=== PATIENT | male | born 1965 | race Caucasian/White ===

== ENCOUNTER → 2017-06-07 | Outpatient (CLI) | payer BC ==
--- NOTE | 2017-06-07 09:45 | US ---
EXAMINATION TYPE: US abdomen complete DATE OF EXAM: 06/07/2017 COMPARISON: CT 2010 CLINICAL HISTORY: R10.11 Rt Upper Quad Pain. Pain is noted with chest/abdomen rotation; gallbladder r emoved lap/cholecystectomy EXAM MEASUREMENTS: Liver Length: 17.0 cm Gallbladder Wall: surgically removed CBD: 0.2 cm Spleen: 9.9 cm Right Kidney: 9.9 x 5.7 x 4.4 cm Left Kidney: 10.8 x 5.4 x 5.5 cm Pancreas: hyperechoic; tail obscured by overlying bowel gas Liver: The liver is heterogenous and coarse in echotexture, slightly hyperechoic with poor visualiza tion of the portal triads. Gallbladder: surgically absent Evidence for sonographic Dalal's sign: No CBD: wnl Spleen: wnl Right Kidney: wnl Left Kidney: wnl Upper IVC: wnl Abd Aorta: wnl IMPRESSION: 1. Hepatic steatosis. 2. Surgical absence of the gallbladder.
== END | disposition home or self-care (01) ==
LOC: RADUSWWP 08:17
PROVIDERS: ATTEND Family Medicine
DX: K76.0 Fatty (change of) liver, not elsewhere classified (principal); Z90.49 Acquired absence of other specified parts of digestive tract
CPT/HCPCS: 76700

== ENCOUNTER → 2017-12-25 | Outpatient (CLI) | payer BC ==
--- NOTE | 2017-12-27 16:13 | ECHOS ---
STRESS ECHOCARDIOGRAM INDICATIONS: Chest pain. MEDICATIONS: Advair, Lunesta BASELINE HEART RATE: 78 BASELINE BLOOD PRESSURE: 131/92 MAXIMUM HEART RATE: 161 MAXIMUM BLOOD PRESSURE: 203/91 85% MPHR: 144 100% MPHR: 169 METS: 10.7 MAXIMUM STAGE REACHED: 4 TOTAL EXERCISE TIME: 9:15 CLINICAL INFORMATION: Patient was exercised for a total of period of 9 minutes and 15 seconds. Peak heart rate of 161 was achieved. Maximum blood pressure of 203/91 mmHg was noted. Resting EKG shows normal sinus rhythm with normal p.r.n. interval and QRS duration and normal ST-T waves. No ST-segment depression suggestive of ischemia was noted. Patient did not complain of any chest pain during the test. The baseline echocardiographic images reveals normal left ventricular chamber size with normal left ventricular systolic function. In the immediate post exercise, normal increase in the wall thickness and contractility is noted. FINAL IMPRESSION: 1. This is stress echocardiographic study is negative for stress-induced ischemia. 2. EKG portion of the stress test is not suggestive of ischemia. 3. Patient's exercise tolerance is normal. MMODL / IJN: [id number] /
== END | disposition home or self-care (01) ==
LOC: RADNMMAIN 10:08
PROVIDERS: ATTEND Family Medicine
DX: R07.9 Chest pain, unspecified (principal)
CPT/HCPCS: 93017; 93350

== ENCOUNTER → 2020-09-29 | Outpatient (CLI) | payer BC ==
--- NOTE | 2020-09-30 11:40 | ECHOS ---
STRESS ECHOCARDIOGRAM INDICATIONS: Palpitations, chest pain. MEDICATIONS: Wixela, Ventolin, lisinopril, metoprolol, Xanax. BASELINE HEART RATE: 69 BASELINE BLOOD PRESSURE: 137/83 MAXIMUM HEART RATE: 173 MAXIMUM BLOOD PRESSURE: 205/110 85% MPHR: 142 100% MPHR: 167 METS: 11.5 MAXIMUM STAGE REACHED: IV TOTAL EXERCISE TIME: 10:00 CLINICAL INFORMATION: STRESS DATA: Heart rate 69, pressure is 137/83 mmHg. Baseline EKG showed sinus mechanism. The patient exercised on the treadmill according to Tuan protocol for a total of 10 minutes and achieved 11.5 METS. The max heart rate was 173, which is about 105 of maximum predicted heart rate. Maximum blood pressure was 205/110 mmHg. Clinically, the patient did not have any symptoms and the EKG did not show any significant ST or T-wave abnormalities concerning for ischemia. On echocardiogram images, on echocardiogram images from parasternal long axis view, parasternal short axis, apical 4 chamber and apical 2 chamber were obtained as the baseline images, at the peak of the heart rate as well as on recovery and the echocardiogram images showed good augmentation in the left ventricular systolic function without any evidence of wall motion abnormalities concerning for ischemia. CONCLUSION: 1. Excellent exercise tolerance. 2. Normal EKG in response to exercise. 3. Normal echocardiogram in response to exercise. MMODL / IJN: [id number] /
== END | disposition home or self-care (01) ==
LOC: RADNMMAIN 08:53
PROVIDERS: ATTEND Internal Medicine
DX: I25.119 Atherosclerotic heart disease of native coronary artery with unspecified angina pectoris (principal)
CPT/HCPCS: 93351

== ENCOUNTER 2020-10-18 21:46 | Emergency (ER) | payer BC ==
[2020-10-18] MEDS ORDERED: SODIUM CHLORIDE 0.9% 1,000 ML IV STA ×2 (22:43)
[2020-10-18] MEDS ORDERED: SODIUM CHLORIDE 0.9% 500 ML 500 ML IV STA (22:43)
--- NOTE | 2020-10-18 22:53 | ED ---
SOB HPI - General Chief Complaint: Shortness of Breath Stated Complaint: SOB Time Seen by Provider: 10/18/20 22:35 Source: patient, RN notes reviewed, old records reviewed Mode of arrival: wheelchair Limitations: no limitations - History of Present Illness Initial Comments: This is a 54-year-old male he presents today for evaluation. Patient Dese for e valuation regards to complaints of shortness of breath. Patient is significantly apparently intoxicated on arrival to ER does present by EMS. Patient has no significant medical history per himself but patient again is a poor story secondary to his intoxication MD Complaint: shortness of breath -: unknown Severity: mild Severity scale (1-10): 3 Consistency: constant Improves With: nothing Worsens With: nothing Context: other (Patient is intoxicated) Associated Symptoms: denies other symptoms Treatments Prior to Arrival: none - Related Data Allergies Allergy/AdvReac Type Severity Reaction Status Date / Time No Known Allergies Allergy Verified 10/18/20 21:55 Review of Systems ROS Statement: Those systems with pertinent positive or pertinent negative responses have been documented in the HPI. ROS Other: All systems not noted in ROS Statement are negative. Past Medical History Past Medical History: No Reported History History of Any Multi-Drug Resistant Organisms: None Reported Past Surgical History: Appendectomy Past Psychological History: No Psychological Hx Reported Smoking Status: Never smoker Past Alcohol Use History: Daily, Heavy Past Drug Use History: Marijuana General Exam Limitations: no limitations General appearance: alert, in no apparent distress, anxious, lethargic Head exam: Present: atraumatic, normocephalic, normal inspection Eye exam: Present: normal appearance, PERRL, EOMI. Absent: scleral icterus, conjunctival injection, periorbital swelling ENT exam: Present: normal exam, mucous membranes moist Neck exam: Present: normal inspection. Absent: tenderness, meningismus, lymphadenopathy Respiratory exam: Present: normal lung sounds bilaterally. Absent: respiratory distress, wheezes, rales, rhonchi, stridor Cardiovascular Exam: Present: regular rate, normal rhythm, normal heart sounds. Absent: systolic murmur, diastolic murmur, rubs, gallop, clicks GI/Abdominal exam: Present: soft, normal bowel sounds. Absent: distended, tenderness, guarding, rebound, rigid Extremities exam: Present: normal inspection, full ROM, normal capillary refill. Absent: tenderness, pedal edema, joint swelling, calf tenderness Back exam: Present: normal inspection Neurological exam: Present: alert, oriented X3, CN II-XII intact Psychiatric exam: Present: normal affect, normal mood Skin exam: Present: warm, dry, intact, normal color. Absent: rash Course Vital Signs 10/18/20 10/18/20 10/18/20 21:49 22:55 23:45 Temperature 98.3 F 98.0 F 97.8 F Pulse Rate 133 H 120 H 115 H Respiratory 21 18 18 Rate Blood Pressure 135/91 132/84 128/75 O2 Sat by Pulse 98 99 99 Oximetry - Reevaluation(s) Reevaluation #1: 10/19/20 00:55 medical record is reviewed Reevaluation #2: 10/19/20 00:55 She is significantly intoxicated but did come pick pick patient up Reevaluation #3: 10/19/20 00:55 Patient was ambulatory in the emergency Medical Decision Making - Medical Decision Making 51 female DF for evaluation patient was complaining of shortness of breath was significantly intoxicated with polysubstance abuse. Patient's did come to pick this patient up - Lab Data Result diagrams: 10/18/20 22:58 10/18/20 22:58 Lab Results 10/18/20 10/18/20 10/18/20 Range/Units 22:58 22:58 22:58 WBC 3.0 L (3.8-10.6) k/uL RBC 5.12 (4.30-5.90) m/uL Hgb 17.2 (13.0-17.5) gm/dL Hct 48.8 (39.0-53.0) % MCV 95.4 D (80.0-100.0) fL MCH 33.7 (25.0-35.0) pg MCHC 35.3 (31.0-37.0) g/dL RDW 12.6 (11.5-15.5) % Plt Count 208 (150-450) k/uL MPV 7.2 Neutrophils % 77 % Lymphocytes % 17 % Monocytes % 4 % Eosinophils % 0 % Basophils % 1 % Neutrophils # 2.3 (1.3-7.7) k/uL Lymphocytes # 0.5 L (1.0-4.8) k/uL Monocytes # 0.1 (0-1.0) k/uL Eosinophils # 0.0 (0-0.7) k/uL Basophils # 0.0 (0-0.2) k/uL PT 10.3 (9.0-12.0) sec INR 1.0 (<1.2) APTT 23.2 (22.0-30.0) sec Sodium (137-145) mmol/L Potassium (3.5-5.1) mmol/L Chloride (98-107) mmol/L Carbon Dioxide (22-30) mmol/L Anion Gap mmol/L BUN (9-20) mg/dL Creatinine (0.66-1.25) mg/dL Est GFR (CKD-EPI)AfAm (>60 ml/min/1.73 sqM) Est GFR (CKD-EPI)NonAf (>60 ml/min/1.73 sqM) Glucose (74-99) mg/dL Plasma Lactic Acid Sinan (0.7-2.0) mmol/L Calcium (8.4-10.2) mg/dL Magnesium (1.6-2.3) mg/dL Total Bilirubin (0.2-1.3) mg/dL AST (17-59) U/L ALT (4-49) U/L Alkaline Phosphatase (38-126) U/L Lactate Dehydrogenase (313-618) U/L Troponin I (0.000-0.034) ng/mL C-Reactive Protein (<10.0) mg/L NT-Pro-B Natriuret Pep pg/mL Total Protein (6.3-8.2) g/dL Albumin (3.5-5.0) g/dL Lipase (23-300) U/L Urine Color Urine Appearance (Clear) Urine pH (5.0-8.0) Ur Specific [place] (1.001-1.035) Urine Protein (Negative) Urine Glucose (UA) (Negative) Urine Ketones (Negative) Urine Blood (Negative) Urine Nitrite (Negative) Urine Bilirubin (Negative) Urine Urobilinogen (<2.0) mg/dL Ur Leukocyte Esterase (Negative) Salicylates mg/dL Urine Opiates Screen Not Detected (NotDetected) Ur Oxycodone Screen Not Detected (NotDetected) Urine Methadone Screen Not Detected (NotDetected) Ur Propoxyphene Screen Not Detected (NotDetected) Acetaminophen ug/mL Ur Barbiturates Screen Not Detected (NotDetected) U Tricyclic Antidepress Not Detected (NotDetected) Ur Phencyclidine Scrn Not Detected (NotDetected) Ur Amphetamines Screen Detected H (NotDetected) U Methamphetamines Scrn Detected H (NotDetected) U Benzodiazepines Scrn Detected H (NotDetected) Urine Cocaine Screen Not Detected (NotDetected) U Marijuana (THC) Screen Detected H (NotDetected) Serum Alcohol mg/dL 10/18/20 10/18/20 10/18/20 Range/Units 22:58 22:58 22:58 WBC (3.8-10.6) k/uL RBC (4.30-5.90) m/uL Hgb (13.0-17.5) gm/dL Hct (39.0-53.0) % MCV (80.0-100.0) fL MCH (25.0-35.0) pg MCHC (31.0-37.0) g/dL RDW (11.5-15.5) % Plt Count (150-450) k/uL MPV Neutrophils % % Lymphocytes % % Monocytes % % Eosinophils % % Basophils % % Neutrophils # (1.3-7.7) k/uL Lymphocytes # (1.0-4.8) k/uL Monocytes # (0-1.0) k/uL Eosinophils # (0-0.7) k/uL Basophils # (0-0.2) k/uL PT (9.0-12.0) sec INR (<1.2) APTT (22.0-30.0) sec Sodium 140 (137-145) mmol/L Potassium 4.2 (3.5-5.1) mmol/L Chloride 104 (98-107) mmol/L Carbon Dioxide 14 L (22-30) mmol/L Anion Gap 22 mmol/L BUN 9 (9-20) mg/dL Creatinine 0.93 (0.66-1.25) mg/dL Est GFR (CKD-EPI)AfAm >90 (>60 ml/min/1.73 sqM) Est GFR (CKD-EPI)NonAf >90 (>60 ml/min/1.73 sqM) Glucose 183 H (74-99) mg/dL Plasma Lactic Acid Sinan 9.5 H* (0.7-2.0) mmol/L Calcium 9.1 (8.4-10.2) mg/dL Magnesium 1.9 (1.6-2.3) mg/dL Total Bilirubin 0.8 (0.2-1.3) mg/dL AST 153 H (17-59) U/L ALT 111 H (4-49) U/L Alkaline Phosphatase 86 (38-126) U/L Lactate Dehydrogenase 772 H (313-618) U/L Troponin I <0.012 (0.000-0.034) ng/mL C-Reactive Protein 5.5 (<10.0) mg/L NT-Pro-B Natriuret Pep pg/mL Total Protein 8.1 (6.3-8.2) g/dL Albumin 4.7 (3.5-5.0) g/dL Lipase 52 (23-300) U/L Urine Color Urine Appearance (Clear) Urine pH (5.0-8.0) Ur Specific [place] (1.001-1.035) Urine Protein (Negative) Urine Glucose (UA) (Negative) Urine Ketones (Negative) Urine Blood (Negative) Urine Nitrite (Negative) Urine Bilirubin (Negative) Urine Urobilinogen (<2.0) mg/dL Ur Leukocyte Esterase (Negative) Salicylates <1.0 mg/dL Urine Opiates Screen (NotDetected) Ur Oxycodone Screen (NotDetected) Urine Methadone Screen (NotDetected) Ur Propoxyphene Screen (NotDetected) Acetaminophen <10.0 ug/mL Ur Barbiturates Screen (NotDetected) U Tricyclic Antidepress (NotDetected) Ur Phencyclidine Scrn (NotDetected) Ur Amphetamines Screen (NotDetected) U Methamphetamines Scrn (NotDetected) U Benzodiazepines Scrn (NotDetected) Urine Cocaine Screen (NotDetected) U Marijuana (THC) Screen (NotDetected) Serum Alcohol 372 H* mg/dL 10/18/20 10/18/20 Range/Units 22:58 22:58 WBC (3.8-10.6) k/uL RBC (4.30-5.90) m/uL Hgb (13.0-17.5) gm/dL Hct (39.0-53.0) % MCV (80.0-100.0) fL MCH (25.0-35.0) pg MCHC (31.0-37.0) g/dL RDW (11.5-15.5) % Plt Count (150-450) k/uL MPV Neutrophils % % Lymphocytes % % Monocytes % % Eosinophils % % Basophils % % Neutrophils # (1.3-7.7) k/uL Lymphocytes # (1.0-4.8) k/uL Monocytes # (0-1.0) k/uL Eosinophils # (0-0.7) k/uL Basophils # (0-0.2) k/uL PT (9.0-12.0) sec INR (<1.2) APTT (22.0-30.0) sec Sodium (137-145) mmol/L Potassium (3.5-5.1) mmol/L Chloride (98-107) mmol/L Carbon Dioxide (22-30) mmol/L Anion Gap mmol/L BUN (9-20) mg/dL Creatinine (0.66-1.25) mg/dL Est GFR (CKD-EPI)AfAm (>60 ml/min/1.73 sqM) Est GFR (CKD-EPI)NonAf (>60 ml/min/1.73 sqM) Glucose (74-99) mg/dL Plasma Lactic Acid Sinan (0.7-2.0) mmol/L Calcium (8.4-10.2) mg/dL Magnesium (1.6-2.3) mg/dL Total Bilirubin (0.2-1.3) mg/dL AST (17-59) U/L ALT (4-49) U/L Alkaline Phosphatase (38-126) U/L Lactate Dehydrogenase (313-618) U/L Troponin I (0.000-0.034) ng/mL C-Reactive Protein (<10.0) mg/L NT-Pro-B Natriuret Pep 78 pg/mL Total Protein (6.3-8.2) g/dL Albumin (3.5-5.0) g/dL Lipase (23-300) U/L Urine Color Colorless Urine Appearance Clear (Clear) Urine pH 5.0 (5.0-8.0) Ur Specific [place] 1.007 (1.001-1.035) Urine Protein Negative (Negative) Urine Glucose (UA) Negative (Negative) Urine Ketones 1+ H (Negative) Urine Blood Negative (Negative) Urine Nitrite Negative (Negative) Urine Bilirubin Negative (Negative) Urine Urobilinogen <2.0 (<2.0) mg/dL Ur Leukocyte Esterase Negative (Negative) Salicylates mg/dL Urine Opiates Screen (NotDetected) Ur Oxycodone Screen (NotDetected) Urine Methadone Screen (NotDetected) Ur Propoxyphene Screen (NotDetected) Acetaminophen ug/mL Ur Barbiturates Screen (NotDetected) U Tricyclic Antidepress (NotDetected) Ur Phencyclidine Scrn (NotDetected) Ur Amphetamines Screen (NotDetected) U Methamphetamines Scrn (NotDetected) U Benzodiazepines Scrn (NotDetected) Urine Cocaine Screen (NotDetected) U Marijuana (THC) Screen (NotDetected) Serum Alcohol mg/dL - EKG Data -: EKG Interpreted by Me (EKG is sinus tach 126 LA 170 QRS 76 QTC 431) - Radiology Data Radiology results: report reviewed (Chest x-rays negative for acute disease), image reviewed Disposition Clinical Impression: Alcohol intoxication Disposition: HOME SELF-CARE Condition: Undetermined Instructions (If sedation given, give patient instructions): Alcohol Intoxication (ED) Is patient prescribed a controlled substance at d/c from ED?: No Referrals: Yanique Artis MD [Primary Care Provider] - 1-2 days
[2020-10-18] MEDS ORDERED: LORazepam 2 MG/ML INJ IV STA (23:06)
[2020-10-18 23:11] LABS: Basophils % (A) 1 %; Eosinophils % (A) 0 %; HCT 48.8 % (39.0-53.0); HGB 17.2 gm/dL (13.0-17.5); Lymphocytes # (A) 0.5 k/uL (1.0-4.8); Lymphocytes % (A) 17 %; MCH 33.7 pg (25.0-35.0); MCHC 35.3 g/dL (31.0-37.0); Mean Platelet Volume 7.2; Monocytes # (A) 0.1 k/uL (0-1.0); Monocytes % (A) 4 %; Neutrophils # (A) 2.3 k/uL (1.3-7.7); Neutrophils % (A) 77 %; Platelet Count 208 k/uL (150-450); RBC 5.12 m/uL (4.30-5.90); RDW 12.6 % (11.5-15.5)
[2020-10-18 23:12] LABS: MCV 95.4 fL (80.0-100.0)
--- NOTE | 2020-10-18 23:13 | XR ---
EXAMINATION TYPE: XR chest 2V DATE OF EXAM: 10/18/2020 COMPARISON: 09/03/2020 HISTORY: Difficulty breathing TECHNIQUE: 3 views FINDINGS: Heart and mediastinum are normal. Lungs are clear. Diaphragm is normal. There are chest natty ds. Bony thorax is intact. IMPRESSION: Normal chest. There is clearing of the lingula mild atelectasis compared to old exam.
[2020-10-18 23:19] LABS: Partial Thromboplastin Time 23.2 sec (22.0-30.0); Prothrombin Time 10.3 sec (9.0-12.0)
[2020-10-18 23:22] LABS: AST 153 U/L (17-59); Acetaminophen <10.0 ug/mL; African American GFR (CKD) >90 (>60 ml/min/1.73 sqM); Albumin 4.7 g/dL (3.5-5.0); Alkaline Phosphatase 86 U/L (38-126); Anion Gap 22 mmol/L; Blood Urea Nitrogen 9 mg/dL (9-20); C Reactive Protein 5.5 mg/L (<10.0); Calcium 9.1 mg/dL (8.4-10.2); Carbon Dioxide 14 mmol/L (22-30); Chloride 104 mmol/L (98-107); Glucose 183 mg/dL (74-99); LDH 772 U/L (313-618); Lipase 52 U/L (23-300); Magnesium 1.9 mg/dL (1.6-2.3); Non-African American GFR(CKD) >90 (>60 ml/min/1.73 sqM); Potassium 4.2 mmol/L (3.5-5.1); Salicylate <1.0 mg/dL; Sodium 140 mmol/L (137-145); Total Bilirubin 0.8 mg/dL (0.2-1.3); Total Protein 8.1 g/dL (6.3-8.2)
[2020-10-18 23:27] LABS: ALT 111 U/L (4-49)
[2020-10-18 23:31] LABS: Alcohol 372 mg/dL
[2020-10-18 23:49] VITALS: RESP 18
[2020-10-18 23:50] VITALS: BP 128/75; PULSE 115; TEMP 97.8
[2020-10-18 23:59] LABS: Amphetamine Screen,Urine Detected (NotDetected); Barbiturate Screen,Urine Not Detected (NotDetected); Benzodiazepines Screen,Urine Detected (NotDetected); Cocaine Screen,Urine Not Detected (NotDetected); Methadone Screen, Urine Not Detected (NotDetected); Opiate Screen,Urine Not Detected (NotDetected); Oxycodone Screen, Urine Not Detected (NotDetected); Phencyclidine Screen,Urine Not Detected (NotDetected); Tricyclic Antidepressant,Urine Not Detected (NotDetected); Urn Cannabinoid Scrn Detected (NotDetected)
[2020-10-19 00:07] LABS: Appearance,Urine Clear (Clear); Bilirubin,Urine Negative (Negative); Blood,Urine Negative (Negative); Color,Urine Colorless; Glucose,Urine (UA) Negative (Negative); Ketones,Urine 1+ (Negative); Leukocyte Esterase,Urine Negative (Negative); Nitrite,Urine Negative (Negative); Protein,Urine Negative (Negative); Specific Gravity,Urine 1.007 (1.001-1.035); Urobilinogen,Urine <2.0 mg/dL (<2.0)
[2020-10-19] MEDS ORDERED: IPRATROPIUM-ALBUTEROL 3 ML NEB INHALATION STA (00:42)
== END 2020-10-19 01:08 | disposition home or self-care (01) ==
LOC: EC 21:46
DX: F10.129 Alcohol abuse with intoxication, unspecified (principal); Y90.8 Blood alcohol level of 240 mg/100 ml or more; Z90.49 Acquired absence of other specified parts of digestive tract
CPT/HCPCS: 36415; 93005; 83880; 80053; 83605; 83615; 83690; 83735; 84484; 85025; 85610; 85730; 86140; 81003; 80306; 83520; 80329; 80320; 71046; 99285; 96374; 96361 ×2; J2060

== ENCOUNTER → 2020-12-05 | Outpatient (CLI) | payer BC ==
--- NOTE | 2020-12-08 14:10 | PE ---
Nuclear medicine PET/CT HISTORY: Solitary pulmonary nodule, initial, R91.8 Patient received 12.2 mCi F-18 FDG intravenously and delayed scanning was performed from the skull ba se to the mid thighs. A localization and attenuation correction CT scan was performed., Correlation C T 10/19/2020 Chest and neck: There is no supraclavicular or cervical adenopathy. No suspicious uptake. Anterior mediastinum shows a soft tissue mass as noted on CT without uptake. No pleural or pericardial effusion. No evident lung mass. ABDOMEN: There is no adrenal mass. Liver shows low attenuation likely due to hepatic steatosis. Patie nt is post cholecystectomy. No retroperitoneal adenopathy. There is circumaortic left renal vein pres ent. There is no suspicious uptake. Uptake within the bowel is likely physiologic. No pelvic adenopat hy. Osseous structures show no suspicious uptake IMPRESSION: Anterior mediastinal mass is indeterminate, there is no significant uptake identified at this level however.
== END | disposition home or self-care (01) ==
LOC: RADPETMAIN 08:49
PROVIDERS: ATTEND Internal Medicine Critical Care Medicine
DX: R91.8 Other nonspecific abnormal finding of lung field (principal)
CPT/HCPCS: 78815; A9552

== ENCOUNTER → 2020-12-28 | Outpatient (CLI) | payer BC ==
[2020-12-28 11:35] LABS: Partial Thromboplastin Time 23.2 sec (22.0-30.0); Prothrombin Time 10.7 sec (9.0-12.0)
[2020-12-28 11:36] LABS: Basophils # (A) 0.1 k/uL (0-0.2); Basophils % (A) 1 %; Eosinophils # (A) 0.4 k/uL (0-0.7); Eosinophils % (A) 7 %; HCT 46.6 % (39.0-53.0); HGB 15.8 gm/dL (13.0-17.5); Lymphocytes % (A) 18 %; MCH 34.1 pg (25.0-35.0); MCHC 33.9 g/dL (31.0-37.0); MCV 100.8 fL (80.0-100.0); Mean Platelet Volume 7.1; Monocytes # (A) 0.5 k/uL (0-1.0); Monocytes % (A) 10 %; Neutrophils # (A) 3.4 k/uL (1.3-7.7); Neutrophils % (A) 62 %; Platelet Count 187 k/uL (150-450); RBC 4.62 m/uL (4.30-5.90); RDW 12.9 % (11.5-15.5); WBC 5.4 k/uL (3.8-10.6)
[2020-12-28 11:38] LABS: African American GFR (CKD) >90 (>60 ml/min/1.73 sqM); Anion Gap 6 mmol/L; Blood Urea Nitrogen 15 mg/dL (9-20); Carbon Dioxide 29 mmol/L (22-30); Chloride 101 mmol/L (98-107); Glucose 106 mg/dL (74-99); Non-African American GFR(CKD) >90 (>60 ml/min/1.73 sqM); Sodium 136 mmol/L (137-145)
== END | disposition home or self-care (01) ==
LOC: LABPAT 10:18
PROVIDERS: ATTEND Thoracic Surgery (Cardiothoracic Vascular Surgery)
DX: Z01.818 Encounter for other preprocedural examination (principal); U07.1 COVID-19; R22.2 Localized swelling, mass and lump, trunk; E87.8 Other disorders of electrolyte and fluid balance, not elsewhere classified; R58 Hemorrhage, not elsewhere classified
CPT/HCPCS: 80051; 82565; 82947; 84520; 85025; 85610; 85730; 36415; U0003; C9803

== ENCOUNTER 2020-12-31 05:59 | Inpatient (IN) | payer BC ==
[2020-12-31] MEDS ORDERED: ONDANSETRON 4 MG/2 ML VIAL IVP ONE (06:08)
[2020-12-31] MEDS ORDERED: SCOPOLAMINE 1.5MG/72HR PATCH TRANSDERM ONE (06:08)
[2020-12-31] MEDS ORDERED: DEXAMETHASONE SOD PHOSPHATE 4 MG/ML 1 ML VIAL IV ONE (06:08)
[2020-12-31] MEDS: LIDOCAINE 1% (10MG/ML) FOR IV START INTRADERMA PRN ×2 (06:30→06:35)
[2020-12-31] MEDS: LACTATED RINGERS 1,000 ML IV SCH ×2 (06:30→07:13)
[2020-12-31] MEDS ORDERED: GLYCOPYRROLATE 0.2 MG/ML 2 ML VIAL ONE (07:29)
[2020-12-31] MEDS ORDERED: ROPIVACAINE 5 MG/ML 30 ML VIAL ONE (07:29)
[2020-12-31] MEDS ORDERED: LIDOCAINE 1% INJ 10MG/ML (20 ML MDV) ONE (07:29)
[2020-12-31] MEDS ORDERED: ALBUTEROL HFA INHALER INHALATION ONE (07:29)
[2020-12-31] MEDS ORDERED: SUCCINYLCHOLINE CHLORIDE 100 MG/5 ML SYR IV ONE (07:29)
[2020-12-31] MEDS ORDERED: MIDAZOLAM 2 MG/2 ML VIAL ONE (07:29)
[2020-12-31] MEDS ORDERED: NEOSTIGMINE 1 MG/ML 10 ML VIAL ONE (07:29)
[2020-12-31] MEDS ORDERED: fentaNYL (PF) 50 MCG/ML 2 ML AMP ONE (07:29)
[2020-12-31] MEDS ORDERED: ePHEDrine SULFATE/0.9% NACL/PF 50 MG/5 ML SYRINGE IV ONE (07:29)
[2020-12-31] MEDS ORDERED: PROPOFOL 10 MG/ML 20 ML VIAL IV ONE (07:29)
[2020-12-31] MEDS ORDERED: DEXAMETHASONE SOD PHOSPHATE 10 MG/ML 1 ML VIAL ONE (07:29)
[2020-12-31] MEDS ORDERED: PHENYLEPHRINE-0.9% NACL SYG 1,000 MCG/10 ML SYRINGE ONE (07:29)
[2020-12-31] MEDS ORDERED: ROCURONIUM 10 MG/ML (5 ML VIAL) IV ONE (07:29)
[2020-12-31] MEDS ORDERED: MIDAZOLAM 2 MG/2 ML VIAL IVP ONE (07:32)
[2020-12-31] MEDS: fentaNYL (PF) 50 MCG/ML 2 ML AMP IVP ONE ×6 (07:33→12:00)
[2020-12-31] MEDS ORDERED: BUPIVACAINE (PF) 0.25% 30 ML VIAL SQ ONE ×2 (08:28→10:48)
[2020-12-31] MEDS ORDERED: LACTATED RINGERS 1,000 ML IV ONE ×2 (08:59)
[2020-12-31] MEDS ORDERED: guaiFENesin 600 MG TABLET.ER PO PRN (11:06)
[2020-12-31] MEDS: HYDROmorphone 0.5 MG/0.5 ML SYRINGE IVP PRN ×2 (11:10→11:15)
[2020-12-31] MEDS ORDERED: diphenhydrAMINE 50 MG/ML 1 ML VIAL IVP ONE (11:35)
--- NOTE | 2020-12-31 11:47 | P.OP ---
Date of Procedure: 12/31/20 Preoperative Diagnosis: Thymic mass Postoperative Diagnosis: Same Procedure(s) Performed: Robotic-assisted right thoracoscopic total thymectomy Implants: None Anesthesia: CHARLIEA Surgeon: Ehsan Stevens Estimated Blood Loss (ml): 10 IV fluids (ml): 1,000 Urine output (ml): 200 Pathology: other (Thymus oriented on a piece of paper and sent fresh to pathology. Tumor was marked with a suture. Discussion was held with the patella pathologist regarding the handling of the specimen.) Condition: stable Disposition: PACU Indications for Procedure: 55-year-old male who developed Covent and presented to the emergency department [facility]. He had a CAT scan which demonstrated a thymic mass. She recovered from Covent he was referred for further evaluation. He was seen by oncology and a PET scan was ordered. This was negative. He was subsequently referred to [place]. Thymectomy was recommended for suspicion of primary thymoma. Operative Findings: There was extensive thymic fat pad present in the anterior Carlita mediastinum. This was completely excised. There was a 2 cm nodule noted within the thymic tissue on removal of the specimen. It appeared to be completely contained within the thymus. Was no evidence of invasion of the tumor grossly and no evidence of metastasis. Pleural spaces were clear of any pleural implants. Description of Procedure: The patient was brought to the operating room, placed supine on the operating room table, anesthetized and intubated with a double-lumen endotracheal tube. The tube was positioned with fiberoptic bronchoscopy and secured. Patient was appropriately positioned for robotic thymectomy. The right chest and midline sternum to the left nipple were sterilely prepped and draped. Initial incision was made in the fifth interspace in the anterior axillary line and an 8 mm port was placed here. Thoracoscope was placed. The right lung had been deflated. Presence within the pleural space was confirmed present. CO2 insufflation was begun. 2 more 8 mm ports were placed superior and anterior to the initial port in the third and second interspace and a fourth 8 mm port was placed in the seventh interspace somewhat more posteriorly. Working port was placed in the ninth interspace anteriorly. The robot was docked. We began by dissecting the fat pad away from the right phrenic nerve paralleling the nerve about half a centimeter anterior to it for the length of the phrenic nerve in the right chest. We then continued our dissection superiorly dissecting the fat pad from away from the right innominate vein and the right mammary vein. Dissection was carried then inferiorly parallel to the mammary artery and vein and then the thymic fat pad was excised from beneath the sternum back to the left mammary artery and vein. The insertion of the left mammary vein on the left innominate vein was identified and the superior portion of the left innominate vein was cleared. The superior poles of the thymic gland had been pulled down in this process. We now directed our attention inferiorly to the diaphragm. The inferior poles of the thymus were dissected from the diaphragm on the right side and then on the left side in the process we entered the left pleural space and opened widely the left inferior pole was dissected out all the way up to within a couple of centimeters of the superior portion of the previous dissection and care was taken to not injure the left phrenic nerve. At this point we began to carefully dissected the thymic fat pad from the inferior portion of the left innominate vein. There were several large draining branches and these were ligated and divided with the vessel sealer. Once we had completely freed the thymic tissue from the innominate vein the final couple of centimeters in the left pleural space was completed and the specimen was brought down into the right pleural space. The specimen was then placed in a large Endo Catch bag. At this point the robot was undocked and the working port incision was enlarged to allow the specimen to come through the chest wall in the Endo Catch bag. Was opened on the back table and the specimen electrical prospector and oriented on a piece of paper and marked and then folded up and placed in a container and sent to pathology fresh for analysis. The tumor was identified within the thymic specimen was marked with a suture. It was about 2 cm in diameter and appeared to be completely free of any invasion outside the thymus. After assuring a good sponge count a 28-Danish chest tube was placed through the most dense inferior and posterior of the robotic ports and positioned posterior apically in the right pleural space. It was secured with 2-0 Ethibond. Both lungs were reinflated and the atelectasis cleared under direct thoracoscopic visualization and then the thoracoscope was removed and the incisions closed with layers of Vicryl suture. Rib blocks were performed at the level of the incisions with clifton lf percent Marcaine. Appropriate dry sterile dressings were applied. Patient was extubated and transferred to recovery in stable condition.
--- NOTE | 2020-12-31 11:58 | XR ---
EXAMINATION TYPE: XR chest 1V portable DATE OF EXAM: 12/31/2020 CLINICAL HISTORY: Post thymectomy progress study. TECHNIQUE: Single AP portable upright view of the chest is obtained. COMPARISON: Chest x-ray from October 18, 2020. Outside chest CT October 19, 2020. Prior PET/CT [facility] [email or web address]. FINDINGS: New Right-sided chest tube. Persistent low lung volumes with bibasilar atelectatic changes .Tiny left apical pneumothorax felt present. No right-sided pneumothorax identified. No new mediastin al shift. Stable cardiomegaly. Stable prominent aortic knob corresponding to increased mediastinal fa t. Horizontal lucency suspect subcutaneous air right mid to lower abdomen. Visualized osseous structures are intact. Suspect artifact from overlying mask right upper thorax. IMPRESSION: Low lung volumes with bibasilar atelectatic changes. Right-sided chest tube with adjacent subcutaneous air. Tiny left apical pneumothorax. No mediastinal shift. No obvious right-sided pneumo thorax.
[2020-12-31] MEDS: MEPERIDINE 50 MG/ML SYRINGE IVP ONE ×2 (12:10→12:27)
[2020-12-31] MEDS ORDERED: DEXTROSE 5%-0.45% NACL 1,000 ML IV SCH (15:03)
[2020-12-31] MEDS ORDERED: ACETAMINOPHEN TAB 325 MG TAB PO PRN (15:03)
[2020-12-31] MEDS ORDERED: ONDANSETRON 4 MG/2 ML VIAL IVP PRN (15:03)
[2020-12-31] MEDS ORDERED: IPRATROPIUM-ALBUTEROL 3 ML NEB IH PRN (15:03)
--- NOTE | 2020-12-31 15:46 | P.CNPUL ---
History of Present Illness Consult date: 12/31/20 Requesting physician: Ehsan Stevens Reason for consult: abnormal CXR/CT Chief complaint: Abnormal chest x-ray/computed tomography scan. History of present illness: This is a 55-year-old male that was referred to Dr. Stevens, for evaluation of the mediastinal mass. The patient's mass was discovered at [facility] back in early September. He apparently was short of breath while deer hunting with some buddies. He was then diagnosed with COVID 19, at which time, he had chest x-rays and CAT scans. The CAT scan revealed an mediastinal mass, which was in the anterior mediastinum, measuring 2 x 2.5 cm. A PET scan was ordered by myself, and it was negative. I thought the mass was most consistent with thymoma. Today, the patient had a robotically-assisted right thoracoscopic total thymectomy under general anesthesia. Dr. Stevens stated that it was one of the largest thymus gland that he never seen. It is likely benign, given the PET scan results, and statistically, most of these are benign. The patient's resting comfortably in the room. He is on a couple of liters of O2. Hopefully, his tubes will come out tomorrow. He is helping to take a trip down the [place] in early January. Other than pain when he takes a deep breath, he is not really having much in the way of complaints. Review of Systems REVIEW OF SYSTEMS: CONSTITUTIONAL: [Negative.] NEUROLOGIC: [ Negative.] HEENT: [ Negative.] CARDIAC: [Negative.] PULMONARY: Pain in the right chest area on deep inspiration, secondary to the recent surgery. GI: [Negative.] : [Negative.] RHEUMATOLOGIC: [ Negative.] IMMUNOLOGIC: [ Negative.] ENDOCRINE: [Negative. ] DERMATOLOGIC: [Negative.] Past Medical History Past Medical History: Asthma Additional Past Medical History / Comment(s): c/o shortness of breath, palpitations occ. Hx Covid 10/2020, CT scan found mass in chest. Hx Insomnia. History of Any Multi-Drug Resistant Organisms: None Reported Past Surgical History: Cholecystectomy Additional Past Surgical History / Comment(s): Colonoscopy Past Anesthesia/Blood Transfusion Reactions: No Reported Reaction Smoking Status: Former smoker - Past Family History Father Family Medical History: Cancer Additional Family Medical History / Comment(s): prostate cancer Medications and Allergies Home Medications Medication Instructions Recorded Confirmed Type ALPRAZolam [Xanax] 0.5 mg PO DAILY PRN 12/25/20 12/31/20 History Albuterol Sulfate [Ventolin HFA] 2 puff INHALATION DIRECTED PRN 12/25/20 12/31/20 History Fluticasone/Salmeterol [Advair 1 inhalation PO BID 12/25/20 12/31/20 History 250-50 Diskus] Metoprolol Succinate (ER) [Toprol 25 mg PO PC-SUPPER 12/25/20 12/25/20 History Xl] Multivitamins, Thera [Multivitamin 1 tab PO DAILY 12/25/20 12/25/20 History (formulary)] guaiFENesin [Mucinex] 600 mg PO Q12H PRN 12/25/20 12/31/20 History lisinopriL [Zestril] 5 mg PO PC-SUPPER 12/25/20 12/31/20 History Allergies Allergy/AdvReac Type Severity Reaction Status Date / Time No Known Allergies Allergy Verified 12/25/20 14:38 Physical Exam Osteopathic Statement: *. No significant issues noted on an osteopathic structural exam other than those noted in the History and Physical/Consult. Vitals: Vital Signs Temp Pulse Pulse Resp BP BP Pulse Ox 12/31/20 15:32 77 16 106/71 93 L 12/31/20 15:30 78 18 107/66 93 L 12/31/20 12:45 101 H 24 131/68 97 12/31/20 12:15 98 16 117/74 96 12/31/20 12:00 64 16 124/83 98 12/31/20 11:45 77 16 124/81 96 12/31/20 11:30 78 16 126/75 93 L 12/31/20 11:15 92 16 134/86 97 12/31/20 11:05 97 F L 80 16 142/88 130/80 97 12/31/20 06:30 97.6 F 67 16 130/83 100 12/31/20 06:28 97.6 F 67 16 130/83 100 Intake and Output 12/31/20 12/31/20 12/31/20 06:59 14:59 22:59 Intake Total 100 2850 220 Output Total 210 Balance 100 2640 220 Intake: IV 100 2850 Oral 220 Output: Urine 200 Estimated Blood Loss 10 Other: Weight 93.8 kg No acute distress, oriented 3. Currently on nasal O2 at 2 L. HEENT examination is grossly unremarkable. Mucous membranes are moist. No oral lesions. Neck supple. Full range of motion. No adenopathy thyromegaly or neck vein distention. Cardiovascular examination reveals regular rhythm rate. S1-S2 normal. No S3 or S4. No discernible murmur noted. Heart sounds are distant. Heart rate 77 bpm. Lungs reveal diminished bilateral breath sounds. Because of the pain, the patient's not taking deep breaths. A few scattered rhonchi are noted. No wheezes or crackles. Abdomen soft bowel sounds are heard. No masses or tenderness. Extremities are intact. No cyanosis clubbing or edema. Skin is without rash or lesion. Neurologic examination is brief but nonfocal. Results - Diagnostic Findings Chest x-ray: image reviewed CT scan - chest: image reviewed Assessment and Plan Assessment: Postop day #0, status post robotically assisted thymectomy, for primary thymoma. History of asthma, currently maintained on Advair and Proventil, stable. History of insomnia. History of cholecystectomy. History of hayfever. Plan: Plan dated 12/31/2020. The patient seems be doing relatively well. Hopefully, his chest tube will come out tomorrow, and he may be able to be discharged home. That will depend on his chest x-ray. Clinically he looks well. He does have pain on deep inspiration which is expected. He tolerated the procedure well. His is in the room and asked the number of questions. I answered all of them. They're hoping to travel down to [place] in early January. They should be able to travel in early January down to [place]. I would like to see him in the office for follow-up chest x-ray. I'll make sure that Dr. Artis is aware. Time with Patient: Greater than 30
[2020-12-31] MEDS: IPRATROPIUM-ALBUTEROL 3 ML NEB IH SCH ×3 (16:43→21:55)
[2020-12-31] MEDS: KETOROLAC 15 MG/ML 1 ML VIAL IVP SCH ×2 (17:22→23:05)
[2020-12-31] MEDS: HEPARIN SODIUM,PORCINE 5,000 UNIT/ML 1 ML VIAL SQ SCH ×2 (17:22→23:06)
[2020-12-31] MEDS: METOPROLOL SUCCINATE (ER) 25 MG TAB.ER.24H PO SCH (17:23)
[2020-12-31] MEDS: traMADol 50 MG TAB PO SCH ×2 (17:23→23:06)
[2020-12-31] MEDS: lisinopriL 5 MG TAB PO SCH (17:23)
--- NOTE | 2020-12-31 17:29 | P.ANPRN ---
Procedure Note - Anesthesia - Nerve Block Performed Right Erector Spinae Time Out Performed: Yes Date of Procedure: 12/31/20 Procedure Start Time: 07:01 Procedure Stop Time: 07:13 Location of Patient: PreOp Indication: Acute Post-Operative Pain, Requested by Surgeon (Dr Stevens) Sedation Type: Sedate with meaningful contact maintained Preparation: Sterile Prep Position: Sitting Catheter: None Needle Types: Pajunk Needle Gauge: Other (see comment) (22g) Ultrasound used to visualize needle placement: Yes Ultrasound used to observe medication spread: Yes Injectate: 0.5% Ropivacaine (see comment for volume) (15cc + 15cc preservative free normal saline) Blood Aspirated: No Pain Paresthesia on Injection Noted: No Resistance on Injection: Normal Image Stored and Saved: Yes Events: Uneventful and Well Tolerated
[2020-12-31] MEDS: SYMBICORT 80-4.5 MCG INHALER INHALATION SCH (21:55)
--- NOTE | 2021-01-01 05:11 | P.CONS ---
History of Present Illness - Reason for Consult Consult date: 12/31/20 Medical management - History of Present Illness This is a 55-year-old male patient of mine with past medical history of hypertension, mild intermittent asthma, history of COVID-19 infection October 2020, remote history of tobacco use, regular alcohol use, patient was treated for Covid 19 infection back in October 2020 was transferred from [facility] at that time he underwent computed tomography scan of the chest with contrast to rule out any pulmonary embolism it did show a mediastinal mass about 2.5 cm for which she was seen in consultation by Dr. Shay, he was recommended at that time to follow-up with him as an outpatient after the Covid infection is cleared patient came to the office and he was sent to see the efficiency analyst where he had intact scan was ordered by him and that showed no uptake initially was decided the patient does have a mediastinal mass suggestive of possible primary thymoma, he was referred to Dr. Stevens for robotic-assisted thymectomy that was done yesterday were asked to see the patient for medical management. Patient is laying down in bed in no apparent distress at this time he is complaining of some pain at the site where his chest tube is he does appear to be a bit anxious, he has oxygen, he was instructed to use the incentive spirometer, he does not appear to be in acute respiratory distress. Hopefully the Chest tube will come out tomorrow morning and he would be able to be discharged home in the next 1 or 2 days. Review of Systems Constitutional: Denies anorexia, Denies chronic headaches, Denies lethargy, Denies weakness, Denies weight gain Eyes: denies blurred vision, denies bulging eye, denies decreased vision Ears: deny: decreased hearing Ears, nose, mouth and throat: Denies dysphagia, Denies neck lump, Denies sore throat Cardiovascular: Denies chest pain, Denies decreased exercise tolerance, Denies dyspnea on exertion, Denies lightheadedness, Denies rapid heart beat, Denies shortness of breath, Denies syncope Respiratory: Denies congestion, Denies cough, Denies cough with sputum, Denies home oxygen, Denies sleep apnea, Denies snoring, Denies wheezing Gastrointestinal: Denies abdominal pain, Denies bloating, Denies BRBPR, Denies early satiety, Denies loss of appetite, Denies melena, Denies nausea, Denies vomiting Genitourinary: Denies dysuria, Denies nocturia Musculoskeletal: Denies atrophy, Denies gait dysfunction, Denies low back pain Musculoskeletal: absent: ankle pain, ankle stiffness, ankle swelling, elbow pain, elbow stiffness, elbow swelling, foot pain, foot stiffness, foot swelling, hand pain, hand stiffness, hand swelling, hip pain, hip stiffness, hip swelling, knee pain, knee stiffness, knee swelling, shoulder pain, shoulder stiffness, shoulder swelling, wrist pain, wrist stiffness, wrist swelling Integumentary: Denies pruritus, Denies rash Neurological: Denies numbness, Denies weakness Psychiatric: Reports anxiety, Denies depression, Denies sadness/tearfulness, Denies sleep disturbances, Denies suicidal ideation Endocrine: Denies fatigue, Denies weight change Past Medical History Past Medical History: Asthma, Hyperlipidemia, Hypertension, Prostate Disorder Additional Past Medical History / Comment(s): c/o shortness of breath, palpitations occ. Hx Covid 10/2020, CT scan found mass in chest. Hx Insomnia. History of Any Multi-Drug Resistant Organisms: None Reported Past Surgical History: Cholecystectomy Additional Past Surgical History / Comment(s): Colonoscopy Past Anesthesia/Blood Transfusion Reactions: No Reported Reaction Smoking Status: Former smoker - Past Family History Father Family Medical History: Cancer (Father at age of 75 from prostate cancer also had COPD and CHF.) Additional Family Medical History / Comment(s): prostate cancer Mother Family Medical History: Coronary Artery Disease (CAD) (Mother at age of 82 from emphysema as well as CAD post-PCI.) Brother(s) Family Medical History: No Reported History (Patient has one brother with no major medical problems.) Daughter(s) Family Medical History: No Reported History (Patient has one daughter who is healthy.) Medications and Allergies Home Medications Medication Instructions Recorded Confirmed Type ALPRAZolam [Xanax] 0.5 mg PO DAILY PRN 12/25/20 12/31/20 History Albuterol Sulfate [Ventolin HFA] 2 puff INHALATION DIRECTED PRN 12/25/20 12/31/20 History Fluticasone/Salmeterol [Advair 1 inhalation PO BID 12/25/20 12/31/20 History 250-50 Diskus] Metoprolol Succinate (ER) [Toprol 25 mg PO PC-SUPPER 12/25/20 12/25/20 History Xl] Multivitamins, Thera [Multivitamin 1 tab PO DAILY 12/25/20 12/25/20 History (formulary)] guaiFENesin [Mucinex] 600 mg PO Q12H PRN 12/25/20 12/31/20 History lisinopriL [Zestril] 5 mg PO PC-SUPPER 12/25/20 12/31/20 History Allergies Allergy/AdvReac Type Severity Reaction Status Date / Time No Known Allergies Allergy Verified 12/25/20 14:38 Physical Exam Vitals: Vital Signs Temp Pulse Pulse Resp BP BP Pulse Ox 12/31/20 12:45 101 H 24 131/68 97 12/31/20 12:15 98 16 117/74 96 12/31/20 12:00 64 16 124/83 98 12/31/20 11:45 77 16 124/81 96 12/31/20 11:30 78 16 126/75 93 L 12/31/20 11:15 92 16 134/86 97 12/31/20 11:05 97 F L 80 16 142/88 130/80 97 12/31/20 06:30 97.6 F 67 16 130/83 100 12/31/20 06:28 97.6 F 67 16 130/83 100 Intake and Output 12/30/20 12/31/20 12/31/20 22:59 06:59 14:59 Intake Total 100 2850 Output Total 210 Balance 100 2640 Intake: IV 100 2850 Output: Urine 200 Estimated Blood Loss 10 Other: Weight 93.8 kg Physical examination: HEENT: Head is atraumatic, normocephalic, pupils were equal round reactive to light and accommodation, extraocular muscle movement intact, mucous membranes of the mouth are somewhat dry. Neck: Supple, no JVD, no carotid bruit. Chest: Decreased breath sounds at bases few rhonchi no expiratory wheezes, there is a right-sided chest tube in place, minimal chest wall tenderness, no intercostal retractions. Heart: First heart sound is depressed, second heart sounds normal, there is no gallop or murmur. Abdomen: Soft, minimal nonspecific tenderness no rebound or guarding positive bowel sounds Extremities: No pedal edema, dorsalis pedis +2 bilaterally, there is no calf tenderness. Neurologic examination: Patient is awake alert and oriented ?-3, cranial nerves 2-12 are grossly intact, muscle power 5 out of 5 in upper and lower extremities bilaterally, deep tendon reflexes were normal. Assessment and Plan Assessment: Assessment and plan: 1. Post operative day #0 status post robotic-assisted thymectomy. Patient was instructed to continue the use of incentive spirometer to reduce the incidence of atelectasis and healthcare associated pneumonia, continue current oxygen support, continue current pain management as outlined by thoracic surgery, increase activity next 24 hours, monitor the patient vital signs very closely, we will hopefully the chest tube will come out tomorrow morning and be able to discharge home in 1-2 days. 2. Primary thymoma discovered on computed tomography scan of the chest followed by a PET scan as an outpatient. 3. Prior history of colon 19 back in October 2020. Recovered fully 4. Hypertension and hypertensive cardio vascular disease. Continue patient on lisinopril 5 mg orally once every day as well as metoprolol ER 25 mg orally once every day. 5. Hyperlipidemia. Continue patient on low-cholesterol diet. 6. Mild persistent asthma. Continue patient on DuoNeb 3 mL nebulization every 6 hours, we will continue oxygen support, we'll continue with Symbicort 160/4.5 g 2 puffs inhalation twice every day. 7. Anxiety disorder. Continue patient on Xanax 0.5 mg orally once every day as needed. 8. Pain management. Continue with tramadol 50 mg orally every 6 hours as needed along with Tylenol in between. 9. DVT prophylaxis. Early ambulation, continue with the heparin 5000 units subcutaneously every 8 hours. 10. GI prophylaxis. Continue Protonix 40 mg orally once every day. 11. Thank you for the consult we will follow the patient with you.
[2021-01-01] MEDS: traMADol 50 MG TAB PO SCH (06:08)
[2021-01-01] MEDS: KETOROLAC 15 MG/ML 1 ML VIAL IVP SCH ×4 (06:09→23:53)
[2021-01-01] MEDS: PANTOPRAZOLE 40 MG TABLET PO SCH (06:09)
--- NOTE | 2021-01-01 07:15 | XR ---
EXAMINATION TYPE: XR chest 1V DATE OF EXAM: 01/01/2021 COMPARISON: 12/31/2020 HISTORY: SOB, Follow Up FINDINGS: Right-sided chest tube is in place. Small right apical pneumothorax noted estimated at less than 10%. Tiny left apical pneumothorax persists. Basilar atelectasis and small left-sided effusion suggested. Stable appearance of the cardio-mediastinal structures at this time. IMPRESSION: 1. Stable portable chest. Clinical correlation and follow up until resolution is recommended.
[2021-01-01 07:37] LABS: Basophils % (A) 0 %; Eosinophils % (A) 0 %; HCT 46.4 % (39.0-53.0); HGB 15.4 gm/dL (13.0-17.5); Lymphocytes # (A) 0.8 k/uL (1.0-4.8); Lymphocytes % (A) 8 %; MCH 33.7 pg (25.0-35.0); MCHC 33.3 g/dL (31.0-37.0); MCV 101.1 fL (80.0-100.0); Mean Platelet Volume 7.1; Monocytes % (A) 10 %; Neutrophils # (A) 8.1 k/uL (1.3-7.7); Neutrophils % (A) 81 %; Platelet Count 229 k/uL (150-450); RBC 4.59 m/uL (4.30-5.90); RDW 12.7 % (11.5-15.5)
[2021-01-01 07:49] LABS: ALT 87 U/L (4-49); AST 66 U/L (17-59); African American GFR (CKD) >90 (>60 ml/min/1.73 sqM); Albumin 3.6 g/dL (3.5-5.0); Alkaline Phosphatase 44 U/L (38-126); Anion Gap 6 mmol/L; Blood Urea Nitrogen 16 mg/dL (9-20); Calcium 9.1 mg/dL (8.4-10.2); Carbon Dioxide 28 mmol/L (22-30); Chloride 98 mmol/L (98-107); Glucose 125 mg/dL (74-99); Non-African American GFR(CKD) >90 (>60 ml/min/1.73 sqM); Potassium 4.1 mmol/L (3.5-5.1); Sodium 132 mmol/L (137-145); Total Bilirubin 0.8 mg/dL (0.2-1.3); Total Protein 6.2 g/dL (6.3-8.2)
[2021-01-01] MEDS: SYMBICORT 80-4.5 MCG INHALER INHALATION SCH ×2 (08:16→19:39)
[2021-01-01] MEDS: IPRATROPIUM-ALBUTEROL 3 ML NEB IH SCH ×4 (08:16→19:40)
[2021-01-01] MEDS: HYDROcodone/APAP 7.5-325MG 1 EACH TAB PO PRN ×5 (09:08→23:52)
[2021-01-01] MEDS: HEPARIN SODIUM,PORCINE 5,000 UNIT/ML 1 ML VIAL SQ SCH ×3 (09:08→23:52)
[2021-01-01] MEDS: MULTIVITAMINS, THERA 1 EACH TAB PO SCH (09:08)
--- NOTE | 2021-01-01 09:54 | P.PN ---
Subjective Progress Note Date: 01/01/21 Principal diagnosis: Thymic mass. Previous medical history of recent Covid infection in October 2020, asthma, previous tobacco dependence, hypertension, hyperlipidemia, and family history of cancer POD #1 robotic-assisted right thoracoscopic total thymectomy The patient is currently sitting up in bed on the cardiac stepdown unit eating breakfast. He does complain of significant pain and his chest tube site not completely controlled by current medication regimen, it difficult to take deep breath. Right pleural chest tube in place to waterseal with 700 mL output since surgery, most recent output looks like chylothorax. There is no air leak present Objective - Vital Signs Vital signs: Vital Signs Temp 98.4 F 01/01/21 08:10 Pulse 84 01/01/21 08:28 Resp 18 01/01/21 08:10 BP 114/76 01/01/21 08:10 Pulse Ox 95 01/01/21 08:10 Intake & Output 12/31/20 01/01/21 01/01/21 18:59 06:59 18:59 Intake Total 3310 1700 Output Total 210 1240 Balance 3100 460 Weight 96.8 kg Intake: IV 2850 Oral 460 1700 Output: Chest Tube Drainage 490 Chest Tube Right 490 Drainage 0 Right Chest 0 Urine 200 750 Estimated Blood Loss 10 Other: Voiding Method Urinal - Constitutional General appearance: Present: cooperative, no acute distress - Respiratory Details: Lungs sounds diminished bilaterally. Respirations even, nonlabored. Currently on 3 L nasal cannula with oxygen saturation 95%. Only able to achieve 500 mL on his incentive spirometry. Weak cough. Right pleural chest tube present to waterseal, 280 mL pinkish yellow thick drainage overnight, 700 mL since surgery, no air leak present. - Cardiovascular Details: S1, S2 present. Regular rate and rhythm, sinus rhythm on telemetry. Palpable peripheral pulses bilaterally. No edema present. No calf pain or tenderness noted. Patient refusing to wear SCDs - Gastrointestinal Gastrointestinal Comment(s): Abdomen soft, nontender, nondistended. Active bowel sounds present 4 quadrants. Tolerating diet - Genitourinary Genitourinary Comment(s): Continues to void - Integumentary Integumentary Comment(s): Skin is warm and dry with evidence of good perfusion - Neurologic Neurologic: Present: CNII-XII intact - Musculoskeletal Musculoskeletal: Present: gait normal, strength equal bilaterally - Psychiatric Psychiatric: Present: A&O x's 3, appropriate affect, intact judgment & insight - Allied health notes Allied health notes reviewed: nursing - Labs CBC & Chem 7: 01/01/21 06:48 01/01/21 06:48 Labs: Abnormal Lab Results - Last 24 Hours (Table) 01/01/21 01/01/21 Range/Units 06:48 06:48 MCV 101.1 H (80.0-100.0) fL Neutrophils # 8.1 H (1.3-7.7) k/uL Lymphocytes # 0.8 L (1.0-4.8) k/uL Sodium 132 L (137-145) mmol/L Glucose 125 H (74-99) mg/dL AST 66 H (17-59) U/L ALT 87 H (4-49) U/L Total Protein 6.2 L (6.3-8.2) g/dL - Imaging and Cardiology Chest x-ray: report reviewed, image reviewed Assessment and Plan Assessment: 1. Thymic mass, status post robotic-assisted right thoracoscopic total thymectomy 2. History of recent Covid infection in October 2020 3. Asthma 4. Previous tobacco dependence 5. Hypertension 6. Hyperlipidemia, cholesterol 237, LDL 142 7. Family history of cancer Plan: 1. Will continue chest tube for another 24 hours to monitor output. Daily chest x-rays 2. No fat, medium-chain triglyceride diet 3. Increase activity, ambulate as tolerated. Patient should be out of bed for all meals 4. Wean O2 as tolerated. Encourage is and spirometry 10 times every hour while awake. Bronchodilators per pulmonology 5. GI/DVT prophylaxis 6. Pain controlled current medication regimen 7. Medical management of other comorbidities per Dr. Artis 8. More recommendations to follow Time with Patient: Greater than 30
--- NOTE | 2021-01-01 12:57 | P.PN ---
Subjective Progress Note Date: 01/01/21 This is a 55-year-old male patient of mine with past medical history of hypertension, mild intermittent asthma, history of COVID-19 infection October 2020, remote history of tobacco use, regular alcohol use, patient was treated for Covid 19 infection back in October [address] [facility] at that time he underwent computed tomography scan of the chest with contrast to rule out any pulmonary embolism it did show a mediastinal mass about 2.5 cm for which she was seen in consultation by Dr. Shay, he was recommended at that time to follow-up with him as an outpatient after the Covid infection is cleared patient came to the office and he was sent to see the management liaison where he had intact scan was ordered by him and that showed no uptake initially was decided the patient does have a mediastinal mass suggestive of possible primary thymoma, he was referred to Dr. Stevens for robotic-assisted thymectomy that was done yesterday were asked to see the p atient for medical management. Patient is laying down in bed in no apparent distress at this time he is complaining of some pain at the site where his chest tube is he does appear to be a bit anxious, he has oxygen, he was instructed to use the incentive spirometer, he does not appear to be in acute respiratory distress. Hopefully the Chest tube will come out tomorrow morning and he would be able to be discharged home in the next 1 or 2 days. 01/01: Patient is postop day #1 seen on the cardiac stepdown unit. Pathology report is pending. Repeat chest x-ray is stable findings. A chest tube remains in place which is quite painful 7-06/15. He is having difficulty with deep breathing secondary to the pain. He is only reaching 500 mL on incentive spirometry. He has been afebrile, heart rate 75, blood pressure 114/76, pulse ox 95% on 3 L nasal cannula. Repeat blood work reveals WBC of 10, hemoglobin 15.4. Sodium 132, potassium 4.1, creatinine 0.82. Blood sugar 125. Total bilirubin 0.8, AST 66, ALT 87, alkaline phosphatase 44. Plan is to increase activity, keep the chest tubes for another day. Objective - Vital Signs Vital signs: Vital Signs Temp 98.4 F 01/01/21 08:10 Pulse 70 01/01/21 12:06 Resp 18 01/01/21 08:10 BP 114/76 01/01/21 08:10 Pulse Ox 95 01/01/21 08:10 Intake & Output 12/31/20 01/01/21 01/01/21 18:59 06:59 18:59 Intake Total 3310 1700 Output Total 210 1240 Balance 3100 460 Weight 96.8 kg Intake: IV 2850 Oral 460 1700 Output: Chest Tube Drainage 490 Chest Tube Right 490 Drainage 0 Right Chest 0 Urine 200 750 Estimated Blood Loss 10 Other: Voiding Method Urinal - Exam Review of Systems Constitutional: Denies anorexia, Denies chronic headaches, Denies lethargy, Denies weakness, Denies weight gain Eyes: denies blurred vision, denies bulging eye, denies decreased vision Ears: deny: decreased hearing Ears, nose, mouth and throat: Denies dysphagia, Denies neck lump, Denies sore throat Cardiovascular: Denies chest pain, Denies decreased exercise tolerance, Denies dyspnea on exertion, Denies lightheadedness, Denies rapid heart beat, Denies shortness of breath, Denies syncope Respiratory: Denies congestion, Denies cough, Denies cough with sputum, Denies home oxygen, Denies sleep apnea, Denies snoring, Denies wheezing Gastrointestinal: Denies abdominal pain, Denies bloating, Denies BRBPR, Denies early satiety, Denies loss of appetite, Denies melena, Denies nausea, Denies vomiting Genitourinary: Denies dysuria, Denies nocturia Musculoskeletal: Denies atrophy, Denies gait dysfunction, Denies low back pain Musculoskeletal: absent: ankle pain, ankle stiffness, ankle swelling, elbow pain, elbow stiffness, elbow swelling, foot pain, foot stiffness, foot swelling, hand pain, hand stiffness, hand swelling, hip pain, hip stiffness, hip swelling, knee pain, knee stiffness, knee swelling, shoulder pain, shoulder stiffness, shoulder swelling, wrist pain, wrist stiffness, wrist swelling Integumentary: Denies pruritus, Denies rash Neurological: Denies numbness, Denies weakness Psychiatric: Reports anxiety, Denies depression, Denies sadness/tearfulness, Denies sleep disturbances, Denies suicidal ideation Endocrine: Denies fatigue, Denies weight change Physical examination: HEENT: Head is atraumatic, normocephalic, pupils were equal round reactive to light and accommodation, extraocular muscle movement intact, mucous membranes of the mouth are somewhat dry. Neck: Supple, no JVD, no carotid bruit. Chest: Decreased breath sounds at bases few rhonchi no expiratory wheezes, there is a right-sided chest tube in place, minimal chest wall tenderness, no interc ostal retractions. Heart: First heart sound is depressed, second heart sounds normal, there is no g allop or murmur. Abdomen: Soft, minimal nonspecific tenderness no rebound or guarding positive bowel sounds Extremities: No pedal edema, dorsalis pedis +2 bilaterally, there is no calf tenderness. Neurologic examination: Patient is awake alert and oriented ?-3, cranial nerves 2-12 are grossly intact, muscle power 5 out of 5 in upper and lower extremities bilaterally, deep tendon reflexes were normal. - Labs CBC & Chem 7: 01/01/21 06:48 01/01/21 06:48 Labs: Abnormal Lab Results - Last 24 Hours (Table) 01/01/21 01/01/21 Range/Units 06:48 06:48 MCV 101.1 H (80.0-100.0) fL Neutrophils # 8.1 H (1.3-7.7) k/uL Lymphocytes # 0.8 L (1.0-4.8) k/uL Sodium 132 L (137-145) mmol/L Glucose 125 H (74-99) mg/dL AST 66 H (17-59) U/L ALT 87 H (4-49) U/L Total Protein 6.2 L (6.3-8.2) g/dL Assessment and Plan Assessment: Assessment and plan: 1. Post operative day #1 status post robotic-assisted thymectomy. Patient was instructed to continue the use of incentive spirometer to reduce the incidence of atelectasis and healthcare associated pneumonia, continue current oxygen support, continue current pain management as outlined by thoracic surgery, increase activity next 24 hours, monitor the patient vital signs very closely, we will hopefully the chest tube will come out tomorrow morning and be able to discharge home in 1-2 days. 2. Primary thymoma discovered on computed tomography scan of the chest followed by a PET scan as an outpatient. 3. Prior history of colon 19 back in October 2020. Recovered fully 4. Hypertension and hypertensive cardio vascular disease. Continue patient on lisinopril 5 mg orally once every day as well as metoprolol ER 25 mg orally once every day. 5. Hyperlipidemia. Continue patient on low-cholesterol diet. 6. Mild persistent asthma. Continue patient on DuoNeb 3 mL nebulization every 6 hours, we will continue oxygen support, we'll continue with Symbicort 160/4.5 g 2 puffs inhalation twice every day. 7. Anxiety disorder. Continue patient on Xanax 0.5 mg orally once every day as needed. 8. Pain management. Continue with tramadol 50 mg orally every 6 hours as need ed along with Tylenol in between. 9. DVT prophylaxis. Early ambulation, continue with the heparin 5000 units subcutaneously every 8 hours. 10. GI prophylaxis. Continue Protonix 40 mg orally once every day. 11. Thank you for the consult we will follow the patient with you.
--- NOTE | 2021-01-01 13:26 | P.PN ---
Subjective Progress Note Date: 01/01/21 Principal diagnosis: Status post thymectomy. This is a 55-year-old male that was referred to Dr. Stevens, for evaluation of the mediastinal mass. The patient's mass was discovered at [facility] back in early September. He apparently was short of breath while deer hunting with some buddies. He was then diagnosed with COVID 19, at which time, he had chest x-rays and CAT scans. The CAT scan revealed an mediastinal mass, which was in the anterior mediastinum, measuring 2 x 2.5 cm. A PET scan was ordered by myself, and it was negative. I thought the mass was most consistent with thymoma. Today, the patient had a robotically-assisted right thoracoscopic total thymectomy under general anesthesia. Dr. Stevens stated that it was one of the largest thymus gland that he never seen. It is likely benign, given the PET scan results, and statistically, most of these are benign. The patient's resting comfortably in the room. He is on a couple of liters of O2. Hopefully, his tubes will come out tomorrow. He is helping to take a trip down the [place] in early January. Other than pain when he takes a deep breath, he is not really having much in the way of complaints. Progress note dated 01/01/2021. This is a 55-year-old male, postop day #1, status post ectomy, for a thymoma. The patient mass was discovered initially at [facility], back in early September. Currently, the patient's doing reasonably well, although he is complaining of pain. In addition, he still has a chest tube in. He had a robotically assisted thymectomy. The surgery was done by Dr. Stevens. Currently, the patient's off oxygen. On room air, saturations are 95%. The mass measured 2 x 2.5 cm. In the PET scan of the mass was essentially negative. The final pathology report is not yet back, but likely this is a benign thymoma. Most are. The patient's major complaint includes pain on deep inspiration. We'll encourage deep breathing coughing clearing secretions, and hourly use of incentive spirometer. White count is 10.0, hemoglobin 15.4, hematocrit 46.4, and platelet count 229,000. Sodium 132, potassium 4.1, chlorides 98, CO2 28, anion gap 6, BUN 16, and creatinine 0.82. Objective - Vital Signs Vital signs: Vital Signs Temp 98.3 F 01/01/21 12:05 Pulse 70 01/01/21 12:06 Resp 18 01/01/21 12:05 BP 109/71 01/01/21 12:05 Pulse Ox 98 01/01/21 12:05 Intake & Output 12/31/20 01/01/21 01/01/21 18:59 06:59 18:59 Intake Total 3310 1700 0 Output Total 210 1240 Balance 3100 460 0 Weight 96.8 kg Intake: IV 2850 Intake, IV Titration 0 Amount Dextrose 5%-0.45% NaCl 1, 0 000 ml @ 40 mls/hr IV . Q24H [facility] Rx#:[id number] Oral 460 1700 Output: Chest Tube Drainage 490 Chest Tube Right 490 Drainage 0 Right Chest 0 Urine 200 750 Estimated Blood Loss 10 Other: Voiding Method Urinal # Bowel Movements 0 - Exam No acute distress, oriented 3. Currently on room air. HEENT examination is grossly unremarkable. Mucous membranes are moist. No oral lesions. Neck supple. Full range of motion. No adenopathy thyromegaly or neck vein distention. Cardiovascular examination reveals regular rhythm rate. S1-S2 normal. No S3 or S4. No discernible murmur noted. Heart sounds are distant. Heart rate 70 bpm. Lungs reveal diminished bilateral breath sounds. Because of the pain, the patient's not taking deep breaths. A few scattered rhonchi are noted. No wheezes or crackles. Right sided chest tube is still present. Abdomen soft bowel sounds are heard. No masses or tenderness. Extremities are intact. No cyanosis clubbing or edema. Skin is without rash or lesion. Neurologic examination is brief but nonfocal. - Labs CBC & Chem 7: 01/01/21 06:48 01/01/21 06:48 Labs: Abnormal Lab Results - Last 24 Hours (Table) 01/01/21 01/01/21 Range/Units 06:48 06:48 MCV 101.1 H (80.0-100.0) fL Neutrophils # 8.1 H (1.3-7.7) k/uL Lymphocytes # 0.8 L (1.0-4.8) k/uL Sodium 132 L (137-145) mmol/L Glucose 125 H (74-99) mg/dL AST 66 H (17-59) U/L ALT 87 H (4-49) U/L Total Protein 6.2 L (6.3-8.2) g/dL Assessment and Plan Assessment: Postop day #1, status post robotically assisted thoracoscopic thymectomy, for primary thymoma. History of asthma, currently maintained on Advair and Proventil, stable. History of insomnia. History of cholecystectomy. History of hayfever. Plan: Plan dated 01/01/2021. Currently, the patient's progressing. He is not on any supplemental oxygen at this time. His room air saturations are in the mid 90s. He is still having q uite a bit of pain with deep inspiration. Encourage deep breathing, coughing, clearing of secretions. We also recommend that he use the incentive spirometer every hour while awake. The patient still having significant drainage from his right-sided chest tube. We will continue to follow make recommendations were appropriate. Discharge will be determined by thoracic surgery. Pathology report is currently pending. Time with Patient: Less than 30
[2021-01-01] MEDS: METOPROLOL SUCCINATE (ER) 25 MG TAB.ER.24H PO SCH (18:24)
[2021-01-01] MEDS: lisinopriL 5 MG TAB PO SCH (18:24)
[2021-01-02] MEDS: KETOROLAC 15 MG/ML 1 ML VIAL IVP SCH ×4 (05:02→23:56)
[2021-01-02] MEDS: HYDROcodone/APAP 7.5-325MG 1 EACH TAB PO PRN ×5 (05:02→23:55)
[2021-01-02] MEDS: PANTOPRAZOLE 40 MG TABLET PO SCH (05:03)
--- NOTE | 2021-01-02 06:57 | XR ---
EXAMINATION TYPE: XR chest 2V DATE OF EXAM: 01/02/2021 COMPARISON: Chest x-ray one day earlier HISTORY: Post mediastinal mass removal progress study. TECHNIQUE: Frontal and lateral views of the chest are obtained. FINDINGS: Overlying subcutaneous emphysema appears more prominent on current study. Persistent right -sided chest tube. Bilateral pneumothorax is not well seen on current study. Better visualization of small left greater than right pleural fluid collections. Cardiac silhouette size is stable and within normal limits. More prominent pneumomediastinum extends into the neck. IMPRESSION: Worsening subcutaneous emphysema and pneumomediastinum. Small to moderate size left grea ter than right pleural fluid collections noted. No obvious pneumothorax on today's study with right-s ided chest tube redemonstrated.
[2021-01-02 07:40] LABS: HCT 51.7 % (39.0-53.0); HGB 16.6 gm/dL (13.0-17.5); MCH 33.2 pg (25.0-35.0); MCHC 32.1 g/dL (31.0-37.0); MCV 103.3 fL (80.0-100.0); Macrocytosis Slight; Mean Platelet Volume 7.1; Platelet Count 262 k/uL (150-450); RBC 5.01 m/uL (4.30-5.90)
[2021-01-02 08:09] LABS: African American GFR (CKD) >90 (>60 ml/min/1.73 sqM); Anion Gap 7 mmol/L; Blood Urea Nitrogen 27 mg/dL (9-20); Calcium 9.2 mg/dL (8.4-10.2); Carbon Dioxide 29 mmol/L (22-30); Chloride 99 mmol/L (98-107); Glucose 92 mg/dL (74-99); Non-African American GFR(CKD) 86 (>60 ml/min/1.73 sqM); Potassium 4.5 mmol/L (3.5-5.1); Sodium 135 mmol/L (137-145)
[2021-01-02] MEDS: HEPARIN SODIUM,PORCINE 5,000 UNIT/ML 1 ML VIAL SQ SCH ×3 (08:47→23:55)
[2021-01-02] MEDS: MULTIVITAMINS, THERA 1 EACH TAB PO SCH (08:47)
[2021-01-02] MEDS: IPRATROPIUM-ALBUTEROL 3 ML NEB IH SCH ×4 (09:01→20:34)
[2021-01-02] MEDS: SYMBICORT 80-4.5 MCG INHALER INHALATION SCH ×2 (09:01→20:34)
--- NOTE | 2021-01-02 11:28 | P.PN ---
Subjective Progress Note Date: 01/02/21 Principal diagnosis: Status post thymectomy. This is a 55-year-old male that was referred to Dr. Stevens, for evaluation of the mediastinal mass. The patient's mass was discovered at [facility] back in early September. He apparently was short of breath while deer hunting with some buddies. He was then diagnosed with COVID 19, at which time, he had chest x-rays and CAT scans. The CAT scan revealed an mediastinal mass, which was in the anterior mediastinum, measuring 2 x 2.5 cm. A PET scan was ordered by myself, and it was negative. I thought the mass was most consistent with thymoma. Today, the patient had a robotically-assisted right thoracoscopic total thymectomy under general anesthesia. Dr. Stevens stated that it was one of the largest thymus gland that he never seen. It is likely benign, given the PET scan results, and statistically, most of these are benign. The patient's resting comfortably in the room. He is on a couple of liters of O2. Hopefully, his tubes will come out tomorrow. He is helping to take a trip down the [place] in early January. Other than pain when he takes a deep breath, he is not really having much in the way of complaints. Progress note dated 01/01/2021. This is a 55-year-old male, postop day #1, status post ectomy, for a thymoma. The patient mass was discovered initially at [facility], back in early September. Currently, the patient's doing reasonably well, although he is complaining of pain. In addition, he still has a chest tube in. He had a robotically assisted thymectomy. The surgery was done by Dr. Stevens. Currently, the patient's off oxygen. On room air, saturations are 95%. The mass measured 2 x 2.5 cm. In the PET scan of the mass was essentially negative. The final pathology report is not yet back, but likely this is a benign thymoma. Most are. The patient's major complaint includes pain on deep inspiration. We'll encourage deep breathing coughing clearing secretions, and hourly use of incentive spirometer. White count is 10.0, hemoglobin 15.4, hematocrit 46.4, and platelet count 229,000. Sodium 132, potassium 4.1, chlorides 98, CO2 28, anion gap 6, BUN 16, and creatinine 0.82. Progress note dated 01/02/2021. 55-year-old male, postop day #2, status post thymectomy, for a thymoma. The patient had a robotically assisted thoracoscopic thymectomy. Currently, the ri ght-sided chest tube is still in place. Unfortunately, he's developed some subcutaneous emphysema. The patient's also having drainage from the chest tube. The surgery was done by Dr. Stevens. He'll end up seeing one of the other thoracic surgeons today. He has been weaned off of oxygen therapy. White count is 9, hemoglobin 16.6, hematocrit 51.7, and platelet count 262,000. Sodium 135, potassium 4.5, chloride 99, CO2 29, anion gap 7, BUN 27, and creatinine 0.99. Pathology report is currently still pending. There was not a significant leak from the chest tube on the right. The chest x-ray showed worsening subcutaneous emphysema and pneumomediastinum, but moderate sized left rated the right pleural effusion. There is no pneumothorax noted. Objective - Vital Signs Vital signs: Vital Signs Temp 98.1 F 01/02/21 08:23 Pulse 70 01/02/21 09:16 Resp 18 01/02/21 08:23 BP 99/71 01/02/21 08:23 Pulse Ox 93 L 01/02/21 08:23 Intake & Output 01/01/21 01/02/21 01/02/21 18:59 06:59 18:59 Intake Total 800 475 Output Total 250 520 Balance 550 -45 Weight 95.1 kg Intake: Intake, IV Titration 0 Amount Dextrose 5%-0.45% NaCl 1, 0 000 ml @ 40 mls/hr IV . Q24H [facility] Rx#:[id number] Oral 800 475 Output: Chest Tube Drainage 250 300 Chest Tube Right 250 300 Urine 220 Other: Voiding Method Urinal Urinal # Voids 1 # Bowel Movements 0 - Exam No acute distress, oriented 3. Currently on room air. No conversational dyspnea, audible wheezing, or use of accessory muscles. HEENT examination is grossly unremarkable. Mucous membranes are moist. No oral lesions. Neck supple. Full range of motion. No adenopathy thyromegaly or neck vein distention. Cardiovascular examination reveals regular rhythm rate. S1-S2 normal. No S3 or S4. No discernible murmur noted. Heart sounds are distant. Heart rate 70 bpm. Lungs reveal diminished bilateral breath sounds. Because of the pain, the patient's not taking deep breaths. A few scattered rhonchi are noted. No wheezes or crackles. Right sided chest tube is still present. Abdomen soft bowel sounds are heard. No masses or tenderness. Extremities are intact. No cyanosis clubbing or edema. Skin reveals subcutaneous emphysema over the chest and neck areas. Neurologic examination is brief but nonfocal. - Labs CBC & Chem 7: 01/02/21 07:05 01/02/21 07:05 Labs: Abnormal Lab Results - Last 24 Hours (Table) 01/02/21 01/02/21 Range/Units 07:05 07:05 MCV 103.3 H (80.0-100.0) fL Sodium 135 L (137-145) mmol/L BUN 27 H (9-20) mg/dL Assessment and Plan Assessment: Postop day #2, status post robotically assisted thoracoscopic thymectomy, for primary thymoma. Postoperative subcutaneous emphysema and pneumomediastinum. History of asthma, currently maintained on Advair and Proventil, stable. History of insomnia. History of cholecystectomy. History of hayfever. Plan: Plan dated 01/02/2021. The patient has been weaned off of oxygen therapy. Unfortunately, he has worsening subcutaneous emphysema and pneumomediastinum. The patient's right- sided chest tube is still in place. No leak was noted. Clinically, the patient is stable. Does not admitting to any increasing shortness of breath, cough, wheezing, or phlegm production. He is yet to be seen by cardiothoracic surgery. We will continue to follow along. Pathology report is currently pending. That may not be available until early next week. Time with Patient: Less than 30
--- NOTE | 2021-01-02 12:23 | P.PN ---
Subjective Progress Note Date: 01/02/21 This is a 55-year-old male patient of mine with past medical history of hypertension, mild intermittent asthma, history of COVID-19 infection October 2020, remote history of tobacco use, regular alcohol use, patient was treated for Covid 19 infection back in October 2020 was transferred from [facility] at that time he underwent computed tomography scan of the chest with contrast to rule out any pulmonary embolism it did show a mediastinal mass about 2.5 cm for which she was seen in consultation by Dr. Shay, he was recommended at that time to follow-up with him as an outpatient after the Covid infection is cleared patient came to the office and he was sent to see the skid [facility] man where he had intact scan was ordered by him and that showed no uptake initially was decided the patient does have a mediastinal mass suggestive of possible primary thymoma, he was referred to Dr. Stevens for robotic-assisted thymectomy that was done yesterday were asked to see the chetan whitt for medical management. Patient is laying down in bed in no apparent distress at this time he is complaining of some pain at the site where his chest tube is he does appear to be a bit anxious, he has oxygen, he was instructed to use the incentive spirometer, he does not appear to be in acute respiratory distress. Hopefully the Chest tube will come out tomorrow morning and he would be able to be discharged home in the next 1 or 2 days. 01/01: Patient is postop day #1 seen on the cardiac stepdown unit. Pathology report is pending. Repeat chest x-ray is stable findings. A chest tube remains in place which is quite painful 7-06/15. He is having difficulty with deep breathing secondary to the pain. He is only reaching 500 mL on incentive spirometry. He has been afebrile, heart rate 75, blood pressure 114/76, pulse ox 95% on 3 L nasal cannula. Repeat blood work reveals WBC of 10, hemoglobin 15.4. Sodium 132, potassium 4.1, creatinine 0.82. Blood sugar 125. Total bilirubin 0.8, AST 66, ALT 87, alkaline phosphatase 44. Plan is to increase activity, keep the chest tubes for another day. 01/02: Patient seen on follow-up postop following thymic mass removal, having some postoperative pain otherwise no further complaints. Chest tube remains in place with chylothorax come still having output. Blood pressure marginal 99 5/71 this morning, we are holding his lisinopril. No fevers. On room air saturating above 90%. Constitutional: Denies anorexia, Denies chronic headaches, Denies lethargy, Denies weakness, Denies weight gain Ears, nose, mouth and throat: Denies dysphagia, Denies neck lump, Denies sore throat Cardiovascular: Denies chest pain, Denies decreased exercise tolerance, Denies d yspnea on exertion, Denies lightheadedness, Denies rapid heart beat, Denies shortness of breath, Denies syncope Respiratory: Denies congestion, Denies cough, Denies cough, shortness of breath Gastrointestinal: Denies abdominal pain, Denies bloating, Genitourinary: Denies dysuria, Integumentary: Denies pruritus, Denies rash Neurological: Denies numbness, Denies weakness Objective - Vital Signs Vital signs: Vital Signs Temp 98.0 F 01/02/21 11:52 Pulse 88 01/02/21 11:52 Resp 18 01/02/21 11:52 BP 141/80 01/02/21 11:52 Pulse Ox 93 L 01/02/21 11:52 Intake & Output 01/01/21 01/02/21 01/02/21 18:59 06:59 18:59 Intake Total 800 475 240 Output Total 250 520 Balance 550 -45 240 Weight 95.1 kg Intake: Intake, IV Titration 0 Amount Dextrose 5%-0.45% NaCl 1, 0 000 ml @ 40 mls/hr IV . Q24H [facility] Rx#:[id number] Oral 800 475 240 Output: Chest Tube Drainage 250 300 Chest Tube Right 250 300 Urine 220 Other: Voiding Method Urinal Urinal # Voids 1 # Bowel Movements 0 - Exam Physical examination: HEENT: Head is atraumatic, normocephalic, PERRLA, mucous membranes of the mouth moist and intact Neck: Supple, no JVD, no carotid bruit. Chest: Diminished breath sounds bilaterally, no wheezes or rhonchi, there is a right-sided chest tube in place, minimal chest wall tenderness, no intercostal retractions. Heart: First heart sound is depressed, second heart sounds normal, there is no gallop or murmur. Abdomen: Soft, minimal nonspecific tenderness no rebound or guarding positive bowel sounds Extremities: No pedal edema, dorsalis pedis +2 bilaterally, there is no calf tenderness. Neurologic examination: Patient is awake alert and oriented &O-3, no focal deficits, moving all extremities spontaneously - Labs CBC & Chem 7: 01/02/21 07:05 01/02/21 07:05 Labs: Abnormal Lab Results - Last 24 Hours (Table) 01/02/21 01/02/21 Range/Units 07:05 07:05 MCV 103.3 H (80.0-100.0) fL Sodium 135 L (137-145) mmol/L BUN 27 H (9-20) mg/dL Assessment and Plan Assessment: Assessment and plan: 1. Post operative day #2 status post robotic-assisted thymectomy. Patient was instructed to continue the use of incentive spirometer to reduce the incidence of atelectasis and healthcare associated pneumonia, currently on room air, continue current pain management as outlined by thoracic surgery, increase activity next 24 hours, monitor the patient vital signs very closely, chest tube health nurse, still having some output, possible removal next 24 hours 2. Primary thymoma discovered on computed tomography scan of the chest followed by a PET scan as an outpatient. 3. Prior history of colon 19 back in October 2020. Recovered fully 4. Hypertension and hypertensive cardio vascular disease. Continue metoprolol ER 25 mg orally once every day. We'll hold his lisinopril, blood pressure marginal this morning. 5. Hyperlipidemia. Continue patient on low-cholesterol diet. 6. Mild persistent asthma. Continue patient on DuoNeb 3 mL nebulization every 6 hours, we will continue oxygen support, we'll continue with Symbicort 160/4.5 g 2 puffs inhalation twice every day. 7. Anxiety disorder. Continue patient on Xanax 0.5 mg orally once every day as needed. 8. Pain management. Continue with tramadol 50 mg orally every 6 hours as needed along with Tylenol in between. 9. DVT prophylaxis. Early ambulation, continue with the heparin 5000 units subcutaneously every 8 hours. 10. GI prophylaxis. Continue Protonix 40 mg orally once every day. 11. Thank you for the consult we will follow the patient with you.
--- NOTE | 2021-01-02 12:39 | P.PN ---
Subjective Progress Note Date: 01/02/21 Principal diagnosis: Thymic mass. Past medical history significant for recent Covid infection in October 2020, asthma, previous tobacco dependence, hypertension, hyperlipidemia, and family history of cancer. POD #2 robotic-assisted right thoracoscopic total thymectomy. The patient was seen in follow-up today as bedside on the cardiac stepdown unit. Currently he is sitting up to the bedside edge, is awake, alert and oriented 3. Denies any complaints of shortness of breath and reports his pain is much better controlled today from yesterday. He does complain of some leakage around his right pleural chest tube site. Right pleural chest tube remains in place and is currently to waterseal. No air leak is present. Draining serosanguineous milky colored drainage. 300 mL of drainage from the right pleural chest tube in the last 8 hours and 850 mL output in the last 24 hours. Oxygen saturation are 93% on room air and he is achieving 1500 mL on his incentive spirometry with encouragement. Subcutaneous emphysema present to his upper back and upper chest. Pathology results remain pending. He has been afebrile the last 24 hours, remote telemetry showing normal sinus rhythm heart rate 85 BPM. He reports he has been ambulating in the cardiac stepdown unit [facility] with minimal assistance. Objective - Vital Signs Vital signs: Vital Signs Temp 98.0 F 01/02/21 11:52 Pulse 88 01/02/21 11:52 Resp 18 01/02/21 11:52 BP 141/80 01/02/21 11:52 Pulse Ox 93 L 01/02/21 11:52 Intake & Output 01/01/21 01/02/21 01/02/21 18:59 06:59 18:59 Intake Total 800 475 240 Output Total 250 520 Balance 550 -45 240 Weight 95.1 kg Intake: Intake, IV Titration 0 Amount Dextrose 5%-0.45% NaCl 1, 0 000 ml @ 40 mls/hr IV . Q24H [facility] Rx#:[id number] Oral 800 475 240 Output: Chest Tube Drainage 250 300 Chest Tube Right 250 300 Urine 220 Other: Voiding Method Urinal Urinal # Voids 1 # Bowel Movements 0 - Constitutional General appearance: Present: cooperative, no acute distress, obese - EENT Eyes: Present: normal appearance. Absent: scleral icterus ENT: Present: hearing grossly normal - Neck Details: Neck is supple, no JVD, no lymphadenopathy. - Respiratory Details: Lung sounds with few scattered rhonchi throughout, diminished to his bilateral bases. No wheezes. Respirations are symmetrical and nonlabored. Oxygen saturation are 93% on room air. Achieving 1500 mL on his incentive spirometry. Right pleural chest tube remains to water seal. No air leak is present. Draining serosanguineous milky-colored drainage with 300 mL output in the last 8 hours and 850 mL output in the last 24 hours. Subcutaneous emphysema present to his upper chest and to his upper back. - Cardiovascular Details: Regular rhythm and rate. S1 and S2 present, negative for S3, gallop or murmur. No edema present. Remote telemetry showing normal sinus rhythm heart rate 85 BPM. - Gastrointestinal Gastrointestinal Comment(s): Abdomen is soft, nontender and nondistended. Active bowel sounds present in all 4 abdominal quadrants. No guarding or rigidity. No organomegaly appreciated. Tolerating oral intake. - Genitourinary Genitourinary Comment(s): Continues to void. - Integumentary Integumentary Comment(s): Skin is warm and dry. No clubbing or cyanosis is present. Right lateral chest incisions clean, dry and approximated. No drainage or redness is present. Dressing is clean, dry and in place to right pleural chest tube site. - Neurologic Neurologic: Present: CNII-XII intact. Absent: focal deficits - Musculoskeletal Musculoskeletal: Present: gait normal, strength equal bilaterally - Psychiatric Psychiatric: Present: A&O x's 3, appropriate affect, intact judgment & insight - Allied health notes Allied health notes reviewed: nursing - Labs CBC & Chem 7: 01/02/21 07:05 01/02/21 07:05 Labs: Abnormal Lab Results - Last 24 Hours (Table) 01/02/21 01/02/21 Range/Units 07:05 07:05 MCV 103.3 H (80.0-100.0) fL Sodium 135 L (137-145) mmol/L BUN 27 H (9-20) mg/dL - Imaging and Cardiology Chest x-ray: report reviewed, image reviewed Assessment and Plan Assessment: 1. Thymic mass, status post robotic-assisted right thoracoscopic total thymectomy 2. Postoperative subcutaneous emphysema and pneumomediastinum 3. History of recent Covid infection in October 2020 4. Asthma 5. Previous tobacco dependence 6. Hypertension 7. Hyperlipidemia, cholesterol 237, LDL 142 8. Family history of cancer Plan: 1. Will continue chest tube to waterseal. 2. Continue to monitor daily chest x-rays. 2. Continue No fat, medium-chain triglyceride diet, continue to monitor for chylothorax resolution. 3. Increase activity, ambulate as tolerated. Patient should be out of bed for all meals. 4. Wean O2 as tolerated. Encourage is and spirometry 10 times every hour while awake. Bronchodilators management per pulmonology/critical care medicine. 5. GI/DVT prophylaxis. 6. Pain controlled current when necessary medication regimen. 7. Medical management of other comorbidities per Dr. Artis. 8. Pathology results remain pending. 9. More recommendations to follow based on patient's clinical course. Time with Patient: Greater than 30
[2021-01-02] MEDS: METOPROLOL SUCCINATE (ER) 25 MG TAB.ER.24H PO SCH (18:16)
[2021-01-03] MEDS: KETOROLAC 15 MG/ML 1 ML VIAL IVP SCH ×4 (05:26→23:09)
[2021-01-03] MEDS: PANTOPRAZOLE 40 MG TABLET PO SCH (05:26)
[2021-01-03] MEDS: HYDROcodone/APAP 7.5-325MG 1 EACH TAB PO PRN ×3 (05:26→23:09)
--- NOTE | 2021-01-03 07:30 | XR ---
EXAMINATION TYPE: XR chest 2V DATE OF EXAM: 01/03/2021 COMPARISON: Chest x-ray from yesterday and older studies. HISTORY: Chest tube progress study. History of mediastinal mass removal. TECHNIQUE: Frontal and lateral views of the chest are obtained. FINDINGS: Overlying subcutaneous emphysema is redemonstrated. Persistent right-sided chest tube. No pneumothorax clearly seen on current study. Persistent small left greater than right pleural fluid co llections. Cardiac silhouette size is stable and within normal limits. Pneumomediastinum less well-se en. Cholecystectomy clips noted. IMPRESSION: Persistent subcutaneous emphysema and likely pneumomediastinum. Small to moderate size l eft greater than right pleural fluid collections redemonstrated. No obvious pneumothorax on today's s tudy with right-sided chest tube redemonstrated. No significant change from one day earlier.
[2021-01-03 07:53] LABS: Basophils % (A) 1 %; Eosinophils # (A) 0.5 k/uL (0-0.7); Eosinophils % (A) 7 %; HCT 48.1 % (39.0-53.0); HGB 16.5 gm/dL (13.0-17.5); Lymphocytes # (A) 1.4 k/uL (1.0-4.8); Lymphocytes % (A) 18 %; MCH 34.7 pg (25.0-35.0); MCHC 34.3 g/dL (31.0-37.0); MCV 101.2 fL (80.0-100.0); Monocytes # (A) 0.5 k/uL (0-1.0); Monocytes % (A) 6 %; Neutrophils # (A) 5.2 k/uL (1.3-7.7); Neutrophils % (A) 67 %; Platelet Count 255 k/uL (150-450); RBC 4.75 m/uL (4.30-5.90); RDW 12.7 % (11.5-15.5); WBC 7.7 k/uL (3.8-10.6)
[2021-01-03 08:02] LABS: African American GFR (CKD) >90 (>60 ml/min/1.73 sqM); Anion Gap 7 mmol/L; Blood Urea Nitrogen 24 mg/dL (9-20); Calcium 8.8 mg/dL (8.4-10.2); Carbon Dioxide 27 mmol/L (22-30); Chloride 100 mmol/L (98-107); Glucose 91 mg/dL (74-99); Non-African American GFR(CKD) >90 (>60 ml/min/1.73 sqM); Potassium 4.1 mmol/L (3.5-5.1); Sodium 134 mmol/L (137-145)
[2021-01-03] MEDS: MULTIVITAMINS, THERA 1 EACH TAB PO SCH (08:19)
[2021-01-03] MEDS: HEPARIN SODIUM,PORCINE 5,000 UNIT/ML 1 ML VIAL SQ SCH (08:19)
[2021-01-03] MEDS: SYMBICORT 80-4.5 MCG INHALER INHALATION SCH ×2 (09:24→19:16)
[2021-01-03] MEDS: IPRATROPIUM-ALBUTEROL 3 ML NEB IH SCH ×4 (09:24→19:16)
--- NOTE | 2021-01-03 09:37 | P.PN ---
Subjective Progress Note Date: 01/03/21 Principal diagnosis: Thymic mass. Past medical history significant for recent Covid infection in October 2020, asthma, previous tobacco dependence, hypertension, hyperlipidemia, and family history of cancer. POD #3 robotic-assisted right thoracoscopic total thymectomy. The patient was seen in follow-up today 01/03/2021 as bedside on the cardiac stepdown unit. Currently he is lying in bed, is awake, alert and oriented 3. Denies any complaints of pain at this time although is complaining of some inability to take a deep breath. Oxygen saturation are 94% on room air and he is achieving 1000 mL on his incentive spirometry. Right pleural chest tube remains in place to low continuous wall suction -20 cm H2O. No air leak is present. Draining thin serosanguineous milky-colored drainage with 150 mL output in the last 8 hours and 740 mL output in the last 24 hours. He has been afebrile the last 24 hours, remote telemetry showing normal sinus rhythm heart rate 65. He reports he has been ambulating in the cardiac stepdown unit hallway. Pathology results remain pending. Subcutaneous emphysema is somewhat improved today to his chest and to his back. Objective - Vital Signs Vital signs: Vital Signs Temp 98.1 F 01/03/21 08:17 Pulse 86 01/03/21 09:24 Resp 18 01/03/21 08:17 BP 107/72 01/03/21 08:17 Pulse Ox 94 L 01/03/21 09:24 Intake & Output 01/02/21 01/03/21 01/03/21 18:59 06:59 18:59 Intake Total 365 Output Total 400 355 Balance -35 -355 Weight 95 kg Intake: Oral 365 Output: Chest Tube Drainage 300 355 Chest Tube Right 300 355 Urine 100 Other: Voiding Method Urinal Urinal Urinal # Voids 1 - Constitutional General appearance: Present: cooperative, no acute distress, obese - EENT Eyes: Present: normal appearance. Absent: scleral icterus ENT: Present: hearing grossly normal - Neck Details: Neck is supple, no JVD, no lymphadenopathy. - Respiratory Details: Lung sounds essentially clear throughout, diminished to his bilateral bases. No wheezes, rhonchi or crackles. Respirations are symmetrical and nonlabored. Oxygen saturation is 94% on room air. Achieving 1000 mL on his incentive spirometry. Right pleural chest tube remains in place to low continuous wall suction -20 cm H2O. No air leak is present. Draining thin serosanguineous milky-colored drainage with 150 mL output in the last 8 hours and 740 mL output in the last 24 hours. - Cardiovascular Details: Regular rhythm and rate. S1 and S2 present, negative for S3, gallop or murmur. Remote telemetry showing normal sinus rhythm heart rate 65 BPM. No edema present. Knee-high CAROLYN hose in place to his bilateral lower extremities. - Gastrointestinal Gastrointestinal Comment(s): Abdomen soft, nontender and nondistended. Active bowel sounds present in all 4 abdominal quadrants. No guarding or rigidity. No organomegaly appreciated. Tolerating oral intake. - Genitourinary Genitourinary Comment(s): Continues to void. - Integumentary Integumentary Comment(s): Skin is warm and dry. No clubbing or cyanosis is present. Right lateral chest incisions clean, dry and approximated. No drainage or redness is present. Dressing to his right chest tube site is clean, dry and intact. - Neurologic Neurologic: Present: CNII-XII intact. Absent: focal deficits - Musculoskeletal Musculoskeletal: Present: gait normal, strength equal bilaterally - Psychiatric Psychiatric: Present: A&O x's 3, appropriate affect, intact judgment & insight - Allied health notes Allied health notes reviewed: nursing - Labs CBC & Chem 7: 01/03/21 07:34 01/03/21 07:34 Labs: Abnormal Lab Results - Last 24 Hours (Table) 01/03/21 01/03/21 Range/Units 07:34 07:34 MCV 101.2 H (80.0-100.0) fL Sodium 134 L (137-145) mmol/L BUN 24 H (9-20) mg/dL - Imaging and Cardiology Chest x-ray: report reviewed, image reviewed Assessment and Plan Assessment: 1. Thymic mass, status post robotic-assisted right thoracoscopic total thymectomy 2. Postoperative subcutaneous emphysema and pneumomediastinum 3. History of recent Covid infection in October 2020 4. Asthma 5. Previous tobacco dependence 6. Hypertension 7. Hyperlipidemia, cholesterol 237, LDL 142 8. Family history of cancer Plan: 1. Continue chest tube to low continuous wall suction -20 cm H2O. May disconnect from suction to ambulate in the hallway and bathroom. 2. Continue to monitor daily chest x-rays. 2. Continue No fat, medium-chain triglyceride diet, continue to monitor for chylothorax resolution. 3. Increase activity, ambulate as tolerated. Patient should be out of bed for all meals. 4. Wean O2 as tolerated. Encourage is and spirometry 10 times every hour while awake. Bronchodilators management per pulmonology/critical care medicine. 5. GI/DVT prophylaxis. 6. Pain controlled current when necessary medication regimen. 7. Medical management of other comorbidities per Dr. Artis. 8. Pathology results remain pending. 9. Encourage use of his incentive spirometry 10 times every hour while awake. 10. More recommendations to follow based on patient's clinical course. Time with Patient: Greater than 30
--- NOTE | 2021-01-03 12:25 | P.PN ---
Subjective Progress Note Date: 01/03/21 This is a 55-year-old male patient of mine with past medical history of hypertension, mild intermittent asthma, history of COVID-19 infection October 2020, remote history of tobacco use, regular alcohol use, patient was treated for Covid 19 infection back in October 2020 was transferred from [facility] at that time he underwent computed tomography scan of the chest with contrast to rule out any pulmonary embolism it did show a mediastinal mass about 2.5 cm for which she was seen in consultation by Dr. Shay, he was recommended at that time to follow-up with him as an outpatient after the Covid infection is cleared patient came to the office and he was sent to see the dynamite reclaimer where he had intact scan was ordered by him and that showed no uptake initially was decided the patient does have a mediastinal mass suggestive of possible primary thymoma, he was referred to Dr. Stevens for robotic-assisted thymectomy that was done yesterday were asked to see the chetan whitt for medical management. Patient is laying down in bed in no apparent distress at this time he is complaining of some pain at the site where his chest tube is he does appear to be a bit anxious, he has oxygen, he was instructed to use the incentive spirometer, he does not appear to be in acute respiratory distress. Hopefully the Chest tube will come out tomorrow morning and he would be able to be discharged home in the next 1 or 2 days. 01/01: Patient is postop day #1 seen on the cardiac stepdown unit. Pathology report is pending. Repeat chest x-ray is stable findings. A chest tube remains in place which is quite painful 7-06/15. He is having difficulty with deep breathing secondary to the pain. He is only reaching 500 mL on incentive spirometry. He has been afebrile, heart rate 75, blood pressure 114/76, pulse ox 95% on 3 L nasal cannula. Repeat blood work reveals WBC of 10, hemoglobin 15.4. Sodium 132, potassium 4.1, creatinine 0.82. Blood sugar 125. Total bilirubin 0.8, AST 66, ALT 87, alkaline phosphatase 44. Plan is to increase activity, keep the chest tubes for another day. 01/02: Patient seen on follow-up postop following thymic mass removal, having some postoperative pain otherwise no further complaints. Chest tube remains in place with chylothorax come still having output. Blood pressure marginal 99 5/ this morning, we are holding his lisinopril. No fevers. On room air saturating above 90%. 01/03: Chest tube remains in place, chylothorax having quite a bit of output from chest tube. On room air saturating above 90%. Blood pressure stable today. No fever. Constitutional: Denies anorexia, Denies chronic headaches, Denies lethargy, Denies weakness, Denies weight gain Ears, nose, mouth and throat: Denies dysphagia, Denies neck lump, Denies sore throat Cardiovascular: Denies chest pain, Denies decreased exercise tolerance, Denies dyspnea on exertion, Denies lightheadedness, Denies rapid heart beat, Denies shortness of breath, Denies syncope Respiratory: Denies congestion, Denies cough, Denies cough, shortness of breath Gastrointestinal: Denies abdominal pain, Denies bloating, Genitourinary: Denies dysuria, Integumentary: Denies pruritus, Denies rash Neurological: Denies numbness, Denies weakness Objective - Vital Signs Vital signs: Vital Signs Temp 98.2 F 01/03/21 11:28 Pulse 76 01/03/21 11:28 Resp 18 01/03/21 11:28 BP 106/70 01/03/21 11:28 Pulse Ox 96 01/03/21 11:28 Intake & Output 01/02/21 01/03/21 01/03/21 18:59 06:59 18:59 Intake Total 365 Output Total 400 355 Balance -35 -355 Weight 95 kg Intake: Oral 365 Output: Chest Tube Drainage 300 355 Chest Tube Right 300 355 Urine 100 Other: Voiding Method Urinal Urinal Urinal # Voids 1 - Exam Physical examination: HEENT: Head is atraumatic, normocephalic, PERRLA, mucous membranes of the mouth moist and intact Neck: Supple, no JVD, no carotid bruit. Chest: Diminished breath sounds bilaterally, no wheezes or rhonchi, there is a right-sided chest tube in place, minimal chest wall tenderness, no intercostal retractions. Heart: First heart sound is depressed, second heart sounds normal, there is no gallop or murmur. Abdomen: Soft, minimal nonspecific tenderness no rebound or guarding positive bowel sounds Extremities: No pedal edema, dorsalis pedis +2 bilaterally, there is no calf tenderness. Neurologic examination: Patient is awake alert and oriented &O-3, no focal deficits, moving all extremities spontaneously - Labs CBC & Chem 7: 01/03/21 07:34 01/03/21 07:34 Labs: Abnormal Lab Results - Last 24 Hours (Table) 01/03/21 01/03/21 Range/Units 07:34 07:34 MCV 101.2 H (80.0-100.0) fL Sodium 134 L (137-145) mmol/L BUN 24 H (9-20) mg/dL Assessment and Plan Assessment: Assessment and plan: 1. Post operative day #3 status post robotic-assisted thymectomy. Patient was instructed to continue the use of incentive spirometer to reduce the incidence of atelectasis and healthcare associated pneumonia, currently on room air, continue current pain management as outlined by thoracic surgery, increase activity as tolerated, monitor the patient vital signs very closely, chest tube remains in place has chylothorax quite a bit of output from chest-tube in the last 24 hours. 2. Primary thymoma discovered on computed tomography scan of the chest followed by a PET scan as an outpatient. 3. Prior history of colon 19 back in October 2020. Recovered fully 4. Hypertension and hypertensive cardio vascular disease. Continue metoprolol ER 25 mg orally once every day. Lisinopril on hold, blood pressure better today 5. Hyperlipidemia. Continue patient on low-cholesterol diet. 6. Mild persistent asthma. Continue patient on DuoNeb 3 mL nebulization every 6 hours, we will continue oxygen support, we'll continue with Symbicort 160/4.5 g 2 puffs inhalation twice every day. 7. Anxiety disorder. Continue patient on Xanax 0.5 mg orally once every day as needed. 8. Pain management. Continue with tramadol 50 mg orally every 6 hours as needed along with Tylenol in between. 9. DVT prophylaxis. Early ambulation, continue with the heparin 5000 units subcutaneously every 8 hours. 10. GI prophylaxis. Continue Protonix 40 mg orally once every day. 11. Thank you for the consult we will follow the patient with you.
--- NOTE | 2021-01-03 13:44 | P.PN ---
Subjective Progress Note Date: 01/03/21 Principal diagnosis: Status post thymectomy. This is a 55-year-old male that was referred to Dr. Stevens, for evaluation of the mediastinal mass. The patient's mass was discovered at [facility] back in early September. He apparently was short of breath while deer hunting with some buddies. He was then diagnosed with COVID 19, at which time, he had chest x-rays and CAT scans. The CAT scan revealed an mediastinal mass, which was in the anterior mediastinum, measuring 2 x 2.5 cm. A PET scan was ordered by myself, and it was negative. I thought the mass was most consistent with thymoma. Today, the patient had a robotically-assisted right thoracoscopic total thymectomy under general anesthesia. Dr. Stevens stated that it was one of the largest thymus gland that he never seen. It is likely benign, given the PET scan results, and statistically, most of these are benign. The patient's resting comfortably in the room. He is on a couple of liters of O2. Hopefully, his tubes will come out tomorrow. He is helping to take a trip down the [place] in early January. Other than pain when he takes a deep breath, he is not really having much in the way of complaints. Progress note dated 01/01/2021. This is a 55-year-old male, postop day #1, status post ectomy, for a thymoma. The patient mass was discovered initially at [facility], back in early September. Currently, the patient's doing reasonably well, although he is complaining of pain. In addition, he still has a chest tube in. He had a robotically assisted thymectomy. The surgery was done by Dr. Stevens. Currently, the patient's off oxygen. On room air, saturations are 95%. The mass measured 2 x 2.5 cm. In the PET scan of the mass was essentially negative. The final pathology report is not yet back, but likely this is a benign thymoma. Most are. The patient's major complaint includes pain on deep inspiration. We'll encourage deep breathing coughing clearing secretions, and hourly use of incentive spirometer. White count is 10.0, hemoglobin 15.4, hematocrit 46.4, and platelet count 229,000. Sodium 132, potassium 4.1, chlorides 98, CO2 28, anion gap 6, BUN 16, and creatinine 0.82. Progress note dated 01/02/2021. 55-year-old male, postop day #2, status post thymectomy, for a thymoma. The patient had a robotically assisted thoracoscopic thymectomy. Currently, the ri ght-sided chest tube is still in place. Unfortunately, he's developed some subcutaneous emphysema. The patient's also having drainage from the chest tube. The surgery was done by Dr. Stevens. He'll end up seeing one of the other thoracic surgeons today. He has been weaned off of oxygen therapy. White count is 9, hemoglobin 16.6, hematocrit 51.7, and platelet count 262,000. Sodium 135, potassium 4.5, chloride 99, CO2 29, anion gap 7, BUN 27, and creatinine 0.99. Pathology report is currently still pending. There was not a significant leak from the chest tube on the right. The chest x-ray showed worsening subcutaneous emphysema and pneumomediastinum, but moderate sized left rated the right pleural effusion. There is no pneumothorax noted. Progress note dated 01/03/2021. 55-year-old male, postop day #3, status post robotically assisted thymectomy, for thymoma. The patient's right-sided chest tube is still in place, the patient still having evidence of subcutaneous emphysema. He has been seen by thoracic early this morning. White count is 7.7, hemoglobin 16.5, hematocrit 4 8.1, and platelet count 255,000. Sodium 134, potassium 4.1, chlorides 100, CO2 27, anion gap 7, BUN 24, and creatinine 0.88. Chest x-ray shows persistent subcutaneous emphysema, with a small left-sided pleural effusion. Clinically, he is feeling a bit better. Objective - Vital Signs Vital signs: Vital Signs Temp 98.2 F 01/03/21 11:28 Pulse 76 01/03/21 11:28 Resp 18 01/03/21 11:28 BP 106/70 01/03/21 11:28 Pulse Ox 96 01/03/21 11:28 Intake & Output 01/02/21 01/03/21 01/03/21 18:59 06:59 18:59 Intake Total 365 Output Total 400 355 Balance -35 -355 Weight 95 kg Intake: Oral 365 Output: Chest Tube Drainage 300 355 Chest Tube Right 300 355 Urine 100 Other: Voiding Method Urinal Urinal Urinal # Voids 1 - Exam No acute distress, oriented 3. Currently on room air. No conversational dyspnea, audible wheezing, or use of accessory muscles. HEENT examination is grossly unremarkable. Mucous membranes are moist. No oral lesions. Neck supple. Full range of motion. No adenopathy thyromegaly or neck vein distention. Cardiovascular examination reveals regular rhythm rate. S1-S2 normal. No S3 or S4. No discernible murmur noted. Heart sounds are distant. Heart rate 76 bpm. Lungs reveal diminished bilateral breath sounds. Because of the pain, the patient's not taking deep breaths. A few scattered rhonchi are noted. No wheezes or crackles. Right sided chest tube is still present. Abdomen soft bowel sounds are heard. No masses or tenderness. Extremities are intact. No cyanosis clubbing or edema. Skin reveals subcutaneous emphysema over the chest and neck areas. Neurologic examination is brief but nonfocal. - Labs CBC & Chem 7: 01/03/21 07:34 01/03/21 07:34 Labs: Abnormal Lab Results - Last 24 Hours (Table) 01/03/21 01/03/21 Range/Units 07:34 07:34 MCV 101.2 H (80.0-100.0) fL Sodium 134 L (137-145) mmol/L BUN 24 H (9-20) mg/dL Assessment and Plan Assessment: Postop day #3, status post robotically assisted thoracoscopic thymectomy, for primary thymoma. Postoperative subcutaneous emphysema and pneumomediastinum. History of asthma, currently maintained on Advair and Proventil, stable. History of insomnia. History of cholecystectomy. History of hayfever. Plan: Plan dated 01/03/2021. Currently, the patient is not receiving any supplemental oxygen. He does not have an air leak from the chest tube on the right side. He still does have significant subcutaneous emphysema over both chest areas, and neck area. Thoracic has seen the patient already. We will continue to follow this patient and make recommendations were appropriate. Pathology, is still pending. Chest x-rays, labs, and medications are all reviewed. Time with Patient: Less than 30
[2021-01-03] MEDS: OCTREOTIDE 100 MCG/ML INJ SQ SCH ×2 (15:52→23:15)
[2021-01-03] MEDS: METOPROLOL SUCCINATE (ER) 25 MG TAB.ER.24H PO SCH (17:56)
[2021-01-03] MEDS: ALPRAZolam 0.5 MG TAB PO PRN (18:00)
[2021-01-04] MEDS: KETOROLAC 15 MG/ML 1 ML VIAL IVP SCH ×4 (05:59→22:09)
[2021-01-04] MEDS: PANTOPRAZOLE 40 MG TABLET PO SCH (06:00)
[2021-01-04] MEDS: HYDROcodone/APAP 7.5-325MG 1 EACH TAB PO PRN ×4 (06:06→22:09)
[2021-01-04] MEDS: SYMBICORT 80-4.5 MCG INHALER INHALATION SCH ×2 (07:20→20:27)
[2021-01-04] MEDS: IPRATROPIUM-ALBUTEROL 3 ML NEB IH SCH ×4 (07:20→20:27)
[2021-01-04 07:48] LABS: HCT 45.8 % (39.0-53.0); HGB 15.4 gm/dL (13.0-17.5); MCH 33.6 pg (25.0-35.0); MCHC 33.6 g/dL (31.0-37.0); MCV 100.1 fL (80.0-100.0); Mean Platelet Volume 7.1; Platelet Count 278 k/uL (150-450); RBC 4.57 m/uL (4.30-5.90); WBC 7.3 k/uL (3.8-10.6)
--- NOTE | 2021-01-04 07:57 | XR ---
EXAMINATION TYPE: XR chest 1V portable DATE OF EXAM: 01/04/2021 CLINICAL HISTORY: Difficulty breathing progress study. Postoperative mediastinal mass removal and juan a st tube. TECHNIQUE: Single AP portable upright view of the chest is obtained. COMPARISON: Chest x-ray from one day earlier and older studies. FINDINGS: Overlying subcutaneous emphysema is redemonstrated. Persistent right-sided chest tube. No pneumothorax clearly seen on current study. Persistent small moderate left sided pleural fluid collec tion or effusion. Improved right basilar linear atelectasis. Cardiac silhouette size is stable and wi thin normal limits. Left-sided volume loss noted with new elevated left hemidiaphragm from older stud ies Pneumomediastinum not well visualized. Osseous structures intact. IMPRESSION: Persistent subcutaneous emphysema . Small to moderate size left sided pleural effusion a nd left-sided volume loss redemonstrated. No obvious pneumothorax with right-sided chest tube redemon strated. No significant change from one day earlier.
[2021-01-04 08:05] LABS: ALT 73 U/L (4-49); AST 73 U/L (17-59); African American GFR (CKD) >90 (>60 ml/min/1.73 sqM); Albumin 2.7 g/dL (3.5-5.0); Alkaline Phosphatase 50 U/L (38-126); Anion Gap 3 mmol/L; Blood Urea Nitrogen 20 mg/dL (9-20); Calcium 8.6 mg/dL (8.4-10.2); Carbon Dioxide 29 mmol/L (22-30); Chloride 98 mmol/L (98-107); Glucose 108 mg/dL (74-99); Non-African American GFR(CKD) >90 (>60 ml/min/1.73 sqM); Potassium 4.4 mmol/L (3.5-5.1); Sodium 130 mmol/L (137-145)
--- NOTE | 2021-01-04 09:23 | US ---
EXAMINATION TYPE: US chest DATE OF EXAM: 01/04/2021 COMPARISON: Chest x-ray earlier today CLINICAL HISTORY: left effusion. Abnormal x-ray TECHNIQUE: Targeted ultrasound of the posterior lower left hemithorax EXAM MEASUREMENTS: Left Pleural Effusion pocket size: 3.1 cm Left skin surface to fluid distance: 3.2 cm Left side marked for possible thoracentesis outside the dept. Pulmonologists are able to review the images in the patient?s EMR. Confirmation of small left pleural effusion as suspected on the x-ray with associated compressive ate lectasis on the 6 images saved. IMPRESSION: As above
[2021-01-04] MEDS ORDERED: OCTREOTIDE 100 MCG/ML INJ SQ SCH (10:00)
--- NOTE | 2021-01-04 10:02 | P.PN ---
Subjective Progress Note Date: 01/04/21 Principal diagnosis: Thymic mass. Past medical history significant for recent Covid infection in October 2020, asthma, previous tobacco dependence, hypertension, hyperlipidemia, and family history of cancer. POD #4 robotic-assisted right thoracoscopic total thymectomy. The patient was seen in follow-up today 01/04/2021 at his bedside on the cardiac stepdown unit. Currently he is lying in bed, is awake, alert and oriented 3. Denies any complaints of shortness of breath or pain at this time. He is complaining of some drainage from around his right pleural chest tube site. Dressing has been changed and reinforced. The patient's is at his bedside and has been updated on his care and her questions were answered by Dr. Chandler. He remains afebrile, remote telemetry showing normal sinus rhythm heart rate 67 BPM. The patient reports he has been tolerating oral intake and has been ambulating in the cardiac stepdown unit hallway. Right pleural chest tube latrice ins in place to low continuous wall suction -20 cm H2O. No air leak is present. Continues to drain serosanguineous milky-colored drainage. Right pleural chest tube drained 220 mL output in the last 8 hours and 500 mL output in the last 24 hours. The surgical pathology results remain pending. Objective - Vital Signs Vital signs: Vital Signs Temp 98.4 F 01/04/21 04:00 Pulse 76 01/04/21 07:35 Resp 16 01/04/21 04:00 BP 118/79 01/04/21 04:00 Pulse Ox 95 01/04/21 04:00 Intake & Output 01/03/21 01/04/21 01/04/21 18:59 06:59 18:59 Intake Total 375 550 240 Output Total 350 1045 Balance 25 -495 240 Intake: IV 10 Invasive Line 4 10 Oral 375 540 240 Output: Chest Tube Drainage 620 Chest Tube Right 620 Urine 350 425 Other: Voiding Method Urinal Urinal # Voids 2 1 - Constitutional General appearance: Present: average body habitus, cooperative, no acute distress - EENT Eyes: Present: normal appearance. Absent: scleral icterus ENT: Present: hearing grossly normal - Neck Details: Neck is supple, no JVD, some scattered subcutaneous emphysema. - Respiratory Details: Lungs sounds essentially clear throughout, diminished to his bilateral bases left greater than right. Respirations are symmetrical and nonlabored. Oxygen saturation are 95% on room air. Achieving 1500 mL on his incentive spirometry. Right pleural chest tube remains in place to low continuous wall suction. No air leak is present. Draining serosanguineous milky colored drainage. 220 mL output in the last 8 hours and 500 mL output in the last 24 hours. - Cardiovascular Details: Regular rhythm and rate. S1 and S2 present, negative for S3, gallop or murmur. No edema present. CAROLYN hose in place to his bilateral lower extremities. - Gastrointestinal Gastrointestinal Comment(s): Abdomen is soft, nontender and nondistended. Active bowel sounds present in all 4 abdominal quadrants. No guarding or rigidity. No organomegaly appreciated. - Genitourinary Genitourinary Comment(s): Continues to void. 425 mL urine output in the last 8 hours. - Integumentary Integumentary Comment(s): Skin is warm and dry. No clubbing or cyanosis is present. Right lateral chest incisions clean, dry and approximated. No drainage or redness is present. Dressing is clean, dry and placed to his right lateral chest tube. Scant serous drainage from around the right pleural chest tube. - Neurologic Neurologic: Present: CNII-XII intact. Absent: focal deficits - Musculoskeletal Musculoskeletal: Present: gait normal, strength equal bilaterally - Psychiatric Psychiatric: Present: A&O x's 3, appropriate affect, intact judgment & insight - Allied health notes Allied health notes reviewed: nursing - Labs CBC & Chem 7: 01/04/21 07:30 01/04/21 07:30 Labs: Abnormal Lab Results - Last 24 Hours (Table) 01/04/21 01/04/21 Range/Units 07:30 07:30 MCV 100.1 H (80.0-100.0) fL Sodium 130 L (137-145) mmol/L Glucose 108 H (74-99) mg/dL AST 73 H (17-59) U/L ALT 73 H (4-49) U/L Total Protein 5.0 L (6.3-8.2) g/dL Albumin 2.7 L (3.5-5.0) g/dL - Imaging and Cardiology Chest x-ray: report reviewed, image reviewed Assessment and Plan Assessment: 1. Thymic mass, status post robotic-assisted right thoracoscopic total thymectomy 2. Postoperative subcutaneous emphysema and pneumomediastinum 3. History of recent Covid infection in October 2020 4. Asthma 5. Previous tobacco dependence 6. Hypertension 7. Hyperlipidemia, cholesterol 237, LDL 142 8. Family history of cancer Plan: 1. Continue chest tube to low continuous wall suction -20 cm H2O. May disconnect from suction to ambulate in the hallway and bathroom. 2. Continue to monitor daily chest x-rays. 2. Continue No fat, medium-chain triglyceride diet, continue to monitor for chylothorax resolution. 3. Increase activity, ambulate as tolerated. Patient should be out of bed for all meals. 4. Wean O2 as tolerated. Encourage is and spirometry 10 times every hour while awake. Bronchodilators management per pulmonology/critical care medicine. 5. GI/DVT prophylaxis. 6. Pain controlled current when necessary medication regimen. 7. Medical management of other comorbidities per Dr. Artis. 8. Pathology results remain pending. 9. Encourage use of his incentive spirometry 10 times every hour while awake. 10. We will increase his Sandostatin to 200 mg subcutaneous 3 times a day. 11. The patient's Betzy has been updated on his care by Dr. Chandler. 12. We will obtain an ultrasound of his left chest with markings for possible drainage for pleural effusion. 13. More recommendations to follow based on patient's clinical course. Time with Patient: Greater than 30
[2021-01-04] MEDS: MULTIVITAMINS, THERA 1 EACH TAB PO SCH (10:05)
[2021-01-04] MEDS: ENOXAPARIN 40 MG/0.4 ML SYRINGE SQ SCH (10:05)
--- NOTE | 2021-01-04 11:07 | P.PN ---
Subjective Progress Note Date: 01/04/21 This is a 55-year-old male, postop day #1, status post ectomy, for a thymoma. The patient mass was discovered initially at [facility], back in early September. Currently, the patient's doing reasonably well, although he is complaining of pain. In addition, he still has a chest tube in. He had a robotically assisted thymectomy. The surgery was done by Dr. Stevens. Currently, the patient's off oxygen. On room air, saturations are 95%. The mass measured 2 x 2.5 cm. In the PET scan of the mass was essentially negative. The final pathology report is not yet back, but likely this is a benign thymoma. Most are. The patient's major complaint includes pain on deep inspiration. We'll encourage deep breathing coughing clearing secretions, and hourly use of incentive spirometer. White count is 10.0, hemoglobin 15.4, hematocrit 46.4, and platelet count 229,000. Sodium 132, potassium 4.1, chlorides 98, CO2 28, anion gap 6, BUN 16, and creatinine 0.82. Progress note dated 01/02/2021. 55-year-old male, postop day #2, status post thymectomy, for a thymoma. The patient had a robotically assisted thoracoscopic thymectomy. Currently, the right-sided chest tube is still in place. Unfortunately, he's developed some subcutaneous emphysema. The patient's also having drainage from the chest tube. The surgery was done by Dr. Stevens. He'll end up seeing one of the other thoracic surgeons today. He has been weaned off of oxygen therapy. White count is 9, hemoglobin 16.6, hematocrit 51.7, and platelet count 262,000. Sodium 135, potassium 4.5, chloride 99, CO2 29, anion gap 7, BUN 27, and creatinine 0.99. Pathology report is currently still pending. There was not a significant leak from the chest tube on the right. The chest x-ray showed worsening subcutaneous emphysema and pneumomediastinum, but moderate sized left rated the right pleural effusion. There is no pneumothorax noted. Progress note dated 01/03/2021. 55-year-old male, postop day #3, status post robotically assisted thymectomy, for thymoma. The patient's right-sided chest tube is still in place, the patient still having evidence of subcutaneous emphysema. He has been seen by thoracic early this morning. White count is 7.7, hemoglobin 16.5, hematocrit 48.1, and platelet count 255,000. Sodium 134, potassium 4.1, chlorides 100, CO2 27, anion gap 7, BUN 24, and creatinine 0.88. Chest x-ray shows persistent subcutaneous emphysema, with a small left-sided pleural effusion. Clinically, he is feeling a bit better. On 01/04/2021, the patient is postop day #4 following his robotic-assisted thym ectomy for thymoma. He still has a chest tube on the right pleural cavity and output from the right-sided chest tube has been 6 20 mL over the past 24 hours. His chest x-ray from today shows a small left-sided pleural effusion along with some atelectatic changes in the left lung base. The gastric bubble is sitting higher and there is evidence of subcutaneous emphysema along the right lateral chest wall. Ultrasound of the chest was also done and the findings are consistent with a small left-sided pleural effusion measuring 3.1 cm in size. The patient is currently on room air oxygen. The patient has a renal function is stable with a creatinine of 0.8. Sodium is at 1:30. Rest of the blood work including hemoglobin is at 15.4 and a white cell count is at 7.3. No other significant events otherwise for now. The chest she will was attached to low intermittent suction and fluid analysis was sent for triglycerides rule out the possibility of chylothorax. Objective - Vital Signs Vital signs: Vital Signs Temp 98.4 F 01/04/21 04:00 Pulse 76 01/04/21 07:35 Resp 16 01/04/21 04:00 BP 118/79 01/04/21 04:00 Pulse Ox 95 01/04/21 04:00 Intake & Output 01/03/21 01/04/21 01/04/21 18:59 06:59 18:59 Intake Total 375 550 240 Output Total 350 1045 Balance 25 -495 240 Intake: IV 10 Invasive Line 4 10 Oral 375 540 240 Output: Chest Tube Drainage 620 Chest Tube Right 620 Urine 350 425 Other: Voiding Method Urinal Urinal # Voids 2 1 - Exam No acute distress, oriented 3. Currently on room air. No conversational dyspnea, audible wheezing, or use of accessory muscles. HEENT examination is grossly unremarkable. Mucous membranes are moist. No oral lesions. Neck supple. Full range of motion. No adenopathy thyromegaly or neck vein distention. Cardiovascular examination reveals regular rhythm rate. S1-S2 normal. No S3 or S4. No discernible murmur noted. Heart sounds are distant. Lungs reveal diminished bilateral breath sounds. There is bronchial breath on the left lung base along with dullness to percussion consistent with pleural effusion. The patient also has appearance emphysema extending along the right side of the chest. Right-sided chest tube is in place. Abdomen soft bowel sounds are heard. No masses or tenderness. Extremities are intact. No cyanosis clubbing or edema. Skin reveals subcutaneous emphysema over the chest and neck areas. Neurologic examination is brief but nonfocal. - Labs CBC & Chem 7: 01/04/21 07:30 01/04/21 07:30 Labs: Abnormal Lab Results - Last 24 Hours (Table) 01/04/21 01/04/21 Range/Units 07:30 07:30 MCV 100.1 H (80.0-100.0) fL Sodium 130 L (137-145) mmol/L Glucose 108 H (74-99) mg/dL AST 73 H (17-59) U/L ALT 73 H (4-49) U/L Total Protein 5.0 L (6.3-8.2) g/dL Albumin 2.7 L (3.5-5.0) g/dL Assessment and Plan Plan: 1 Postop day #4, status post robotically assisted thoracoscopic thymectomy, for primary thymoma. Patient has a right-sided chest tube and the chest tube is in a good location. He has developed some subcutaneous emphysema on the right which is improving. Nevertheless, the fluid output ismilky and there is a possibility of a chylous pleural fusion/hydrothorax. The fluid will be analyzed. 2 Postoperative subcutaneous emphysema and pneumomediastinum. 3 History of asthma, currently maintained on Wixela and Proventil, stable. 4 History of insomnia. 5 History of cholecystectomy. 6 History of hayfever. Plan: Analyzed the pleural fluid for triglycerides rule out chylous pleural effusion. Keep the chest tube to low continuous wall suction Continue using incentive spirometer Continue Symbicort Daily chest x-rays. We'll continue to follow. Patient is on room air oxygen subcutaneous emphysema over both chest areas, and neck area. Thoracic has seen the patient already. We will continue to follow this patient and make recommendations were appropriate. Pathology, is still pending. Time with Patient: Less than 30
[2021-01-04] MEDS: OCTREOTIDE 100 MCG/ML INJ SQ SCH ×4 (11:36→22:48)
--- NOTE | 2021-01-04 13:33 | P.PN ---
Subjective Progress Note Date: 01/04/21 This is a 55-year-old male patient of the [facility] with past medical history of hypertension, mild intermittent asthma, history of COVID-19 infection October 2020, remote history of tobacco use, regular alcohol use, patient was treated for Covid 19 infection back in October 2020 was transferred from [facility] at that time he underwent computed tomography scan of the chest with contrast to rule out any pulmonary embolism it did show a mediastinal mass about 2.5 cm for which she was seen in consultation by Dr. Shay, he was recommended at that time to follow-up with him as an outpatient after the Covid infection is cleared patient came to the office and he was sent to see the concrete pavement installer where he had intact scan was ordered by him and that showed no uptake initially was decided the patient does have a mediastinal mass suggestive of possible primary thymoma, he was referred to Dr. Stevens for robotic-assisted thymectomy that was done yesterday were asked to see the p atient for medical management. Patient is laying down in bed in no apparent distress at this time he is complaining of some pain at the site where his chest tube is he does appear to be a bit anxious, he has oxygen, he was instructed to use the incentive spirometer, he does not appear to be in acute respiratory distress. Hopefully the Chest tube will come out tomorrow morning and he would be able to be discharged home in the next 1 or 2 days. 01/01: Patient is postop day #1 seen on the cardiac stepdown unit. Pathology report is pending. Repeat chest x-ray is stable findings. A chest tube remains in place which is quite painful -06/15. He is having difficulty with deep breathing secondary to the pain. He is only reaching 500 mL on incentive spirometry. He has been afebrile, heart rate 75, blood pressure 114/76, pulse ox 95% on 3 L nasal cannula. Repeat blood work reveals WBC of 10, hemoglobin 15.4. Sodium 132, potassium 4.1, creatinine 0.82. Blood sugar 125. Total bilirubin 0.8, AST 66, ALT 87, alkaline phosphatase 44. Plan is to increase activity, keep the chest tubes for another day. 01/04: The weekend, patient was followed by [facility] hospitalist. Patient states that he continues to have chest discomfort and tightness in his chest. He is using incentive spirometry and reaching 1800 mL. Patient's also states that he has been ambulating in the hallway. She and and his are inquiring whether he should be transferred to another facility. At this time was discussed the patient will continue current treatment for the next 24 hours and then make determination at that time. He has a chest tube on the right pleural cavity that is attached to low int ermittent suction. No air leak. Pleural fluid is being analyzed for triglycerides to rule out chylous pleural effusion. The chest x-ray reveals persistent subcutaneous emphysema. Small to moderate left pleural effusion and left-sided volume loss we demonstrated. No obvious pneumothorax with right- sided chest tube we demonstrated. No significant change. Ultrasound of the chest ordered and reveals left pleural effusion on 3.1 cm. She has been afebrile, heart rate in the 60s, blood pressure 108/70, pulse ox 94% on room air. CBC is unremarkable. Sodium 130, creatinine 0.86. AST 73, ALT 73, alkaline phosphatase 50. Objective - Vital Signs Vital signs: Vital Signs Temp 98.4 F 01/04/21 04:00 Pulse 76 01/04/21 07:35 Resp 16 01/04/21 04:00 BP 118/79 01/04/21 04:00 Pulse Ox 95 01/04/21 04:00 Intake & Output 01/03/21 01/04/21 01/04/21 18:59 06:59 18:59 Intake Total 375 550 Output Total 350 1045 Balance 25 -495 Intake: IV 10 Invasive Line 4 10 Oral 375 540 Output: Chest Tube Drainage 620 Chest Tube Right 620 Urine 350 425 Other: Voiding Method Urinal Urinal # Voids 2 1 - Exam Review of Systems Constitutional: Denies anorexia, Denies chronic headaches, Denies lethargy, Denies weakness, Denies weight gain Eyes: denies blurred vision, denies bulging eye, denies decreased vision Ears: deny: decreased hearing Ears, nose, mouth and throat: Denies dysphagia, Denies neck lump, Denies sore throat Cardiovascular: Reports chest pain, Denies decreased exercise tolerance, Denies dyspnea on exertion, Denies lightheadedness, Denies rapid heart beat, Denies shortness of breath, Denies syncope Respiratory: Denies congestion, Denies cough, Denies cough with sputum, Denies home oxygen, Denies sleep apnea, Denies snoring, Denies wheezing Gastrointestinal: Denies abdominal pain, Denies bloating, Denies BRBPR, Denies early satiety, Denies loss of appetite, Denies melena, Denies nausea, Denies vo miting Genitourinary: Denies dysuria, Denies nocturia Musculoskeletal: Denies atrophy, Denies gait dysfunction, Denies low back pain Musculoskeletal: absent: ankle pain, ankle stiffness, ankle swelling, elbow pain, elbow stiffness, elbow swelling, foot pain, foot stiffness, foot swelling, hand pain, hand stiffness, hand swelling, hip pain, hip stiffness, hip swelling, knee pain, knee stiffness, knee swelling, shoulder pain, shoulder stiffness, shoulder swelling, wrist pain, wrist stiffness, wrist swelling Integumentary: Denies pruritus, Denies rash Neurological: Denies numbness, Denies weakness Psychiatric: Reports anxiety, Denies depression, Denies sadness/tearfulness, Denies sleep disturbances, Denies suicidal ideation Endocrine: Denies fatigue, Denies weight change Physical examination: HEENT: Head is atraumatic, normocephalic, pupils were equal round reactive to light and accommodation, extraocular muscle movement intact, mucous membranes of the mouth are somewhat dry. Neck: Supple, no JVD, no carotid bruit. Chest: Decreased breath sounds at bases few rhonchi no expiratory wheezes, there is a right-sided chest tube in place, minimal chest wall tenderness, no intercostal retractions. Subcutaneous emphysema noted. Right-sided chest tube with milky white drainage. Heart: First heart sound is depressed, second heart sounds normal, there is no gallop or murmur. Abdomen: Soft, minimal nonspecific tenderness no rebound or guarding positive bowel sounds Extremities: No pedal edema, dorsalis pedis +2 bilaterally, there is no calf tenderness. Neurologic examination: Patient is awake alert and oriented ?-3, cranial nerves 2-12 are grossly intact, muscle power 5 out of 5 in upper and lower extremities bilaterally, deep tendon reflexes were normal. - Labs CBC & Chem 7: 01/04/21 07:30 01/04/21 07:30 Labs: Abnormal Lab Results - Last 24 Hours (Table) 01/03/21 01/03/21 Range/Units 07:34 07:34 MCV 101.2 H (80.0-100.0) fL Sodium 134 L (137-145) mmol/L BUN 24 H (9-20) mg/dL Assessment and Plan Plan: 1. Post operative day #1 status post robotic-assisted thymectomy. Patient was instructed to continue the use of incentive spirometer to reduce the incidence of atelectasis and healthcare associated pneumonia, continue current oxygen support, continue current pain management as outlined by thoracic surgery, continue activity . Chest ultrasound as above.. Neurology report is pending. Triglycerides level on pleural fluid pending. Patient started on Sandostatin 200 g subcu every 8 hours. 2. Primary thymoma discovered on computed tomography scan of the chest followed by a PET scan as an outpatient. 3. Prior history of COVID-19 back in October 2020. Recovered fully 4. Hypertension and hypertensive cardio vascular disease. Continue metoprolol ER 25 mg orally once every day. 5. Hyperlipidemia. Continue patient on low-cholesterol diet. 6. Mild persistent asthma. Continue patient on DuoNeb 3 mL nebulization every 6 hours, we will continue oxygen support, we'll continue with Symbicort 80/4.5 g 2 puffs inhalation twice every day. 7. Anxiety disorder. Continue patient on Xanax 0.5 mg orally once every day as needed. 8. Pain management. Continue with tramadol 50 mg orally every 6 hours as needed along with Tylenol in between. 9. DVT prophylaxis. Early ambulation, continue with the heparin 5000 units subcutaneously every 8 hours. 10. GI prophylaxis. Continue Protonix 40 mg orally once every day. Discharge plan: Most likely return home. Impression and plan of care have been directed as dictated by the signing physician. Sanjuanita Cotton nurse practitioner acting as scribe for signing physician.
[2021-01-04] MEDS: METOPROLOL SUCCINATE (ER) 25 MG TAB.ER.24H PO SCH (18:06)
[2021-01-04 18:17] LABS: Appearance,Urine Clear (Clear); Bilirubin,Urine Negative (Negative); Blood,Urine Negative (Negative); Color,Urine Yellow; Glucose,Urine (UA) Negative (Negative); Ketones,Urine Negative (Negative); Leukocyte Esterase,Urine Negative (Negative); Nitrite,Urine Negative (Negative); Protein,Urine Negative (Negative); Urobilinogen,Urine <2.0 mg/dL (<2.0)
[2021-01-05] MEDS: PANTOPRAZOLE 40 MG TABLET PO SCH (06:17)
[2021-01-05] MEDS: HYDROcodone/APAP 7.5-325MG 1 EACH TAB PO PRN ×4 (06:17→21:46)
[2021-01-05] MEDS: KETOROLAC 15 MG/ML 1 ML VIAL IVP SCH ×2 (06:18→12:40)
[2021-01-05 07:41] LABS: HCT 53.1 % (39.0-53.0); HGB 17.9 gm/dL (13.0-17.5); MCH 34.2 pg (25.0-35.0); MCHC 33.7 g/dL (31.0-37.0); MCV 101.4 fL (80.0-100.0); Mean Platelet Volume 7.2; Platelet Count 393 k/uL (150-450); RBC 5.24 m/uL (4.30-5.90); RDW 12.5 % (11.5-15.5)
[2021-01-05] MEDS: SYMBICORT 80-4.5 MCG INHALER INHALATION SCH ×2 (07:52→19:10)
[2021-01-05] MEDS: IPRATROPIUM-ALBUTEROL 3 ML NEB IH SCH ×4 (07:53→19:10)
[2021-01-05 08:00] LABS: ALT 122 U/L (4-49); AST 105 U/L (17-59); African American GFR (CKD) >90 (>60 ml/min/1.73 sqM); Albumin 3.7 g/dL (3.5-5.0); Alkaline Phosphatase 52 U/L (38-126); Anion Gap 6 mmol/L; Blood Urea Nitrogen 19 mg/dL (9-20); Calcium 9.2 mg/dL (8.4-10.2); Carbon Dioxide 30 mmol/L (22-30); Chloride 98 mmol/L (98-107); Glucose 109 mg/dL (74-99); Non-African American GFR(CKD) >90 (>60 ml/min/1.73 sqM); Sodium 134 mmol/L (137-145); Total Bilirubin 1.1 mg/dL (0.2-1.3); Total Protein 6.5 g/dL (6.3-8.2)
[2021-01-05] MEDS ORDERED: FUROSEMIDE 10 MG/ML 4 ML VIAL IV STA (08:15)
--- NOTE | 2021-01-05 08:30 | XR ---
EXAMINATION TYPE: XR chest 2V DATE OF EXAM: 01/05/2021 COMPARISON: 01/04/2021 HISTORY: 55-year-old male postoperative thymectomy. TECHNIQUE: PA and lateral views FINDINGS: Immediately divergent right-sided chest tube is present. Suspect a subtle trace 6 mm left apical pneu mothorax. Subcutaneous emphysema, right greater than left shows some improvement. Continued moderate effusion and left basilar opacity. Left heart margin obscured by adjacent pleural parenchymal opacity . IMPRESSION: 1. Suspect a trace 6 mm left apical pneumothorax. 2. Right-sided chest tube in place. 3. Continued moderate left effusion with adjacent atelectasis and/or consolidation. 4. Subcutaneous emphysema, right greater than left, is improving.
[2021-01-05 08:34] LABS: Amylase 62 U/L (30-110); Lipase 66 U/L (23-300)
[2021-01-05] MEDS: MULTIVITAMINS, THERA 1 EACH TAB PO SCH (09:31)
[2021-01-05] MEDS: ENOXAPARIN 40 MG/0.4 ML SYRINGE SQ SCH ×2 (09:31→18:00)
[2021-01-05] MEDS: OCTREOTIDE 100 MCG/ML INJ SQ SCH ×3 (09:31→23:00)
--- NOTE | 2021-01-05 10:49 | P.PN ---
Subjective Progress Note Date: 01/05/21 This is a 55-year-old male, postop day #1, status post ectomy, for a thymoma. The patient mass was discovered initially at [facility], back in early September. Currently, the patient's doing reasonably well, although he is complaining of pain. In addition, he still has a chest tube in. He had a robotically assisted thymectomy. The surgery was done by Dr. Stevens. Currently, the patient's off oxygen. On room air, saturations are 95%. The mass measured 2 x 2.5 cm. In the PET scan of the mass was essentially negative. The final pathology report is not yet back, but likely this is a benign thymoma. Most are. The patient's major complaint includes pain on deep inspiration. We'll encourage deep breathing coughing clearing secretions, and hourly use of incentive spirometer. White count is 10.0, hemoglobin 15.4, hematocrit 46.4, and platelet count 229,000. Sodium 132, potassium 4.1, chlorides 98, CO2 28, anion gap 6, BUN 16, and creatinine 0.82. Progress note dated 01/02/2021. 55-year-old male, postop day #2, status post thymectomy, for a thymoma. The patient had a robotically assisted thoracoscopic thymectomy. Currently, the right-sided chest tube is still in place. Unfortunately, he's developed some subcutaneous emphysema. The patient's also having drainage from the chest tube. The surgery was done by Dr. Stevens. He'll end up seeing one of the other thoracic surgeons today. He has been weaned off of oxygen therapy. White count is 9, hemoglobin 16.6, hematocrit 51.7, and platelet count 262,000. Sodium 135, potassium 4.5, chloride 99, CO2 29, anion gap 7, BUN 27, and creatinine 0.99. Pathology report is currently still pending. There was not a significant leak from the chest tube on the right. The chest x-ray showed worsening subcutaneous emphysema and pneumomediastinum, but moderate sized left rated the right pleural effusion. There is no pneumothorax noted. Progress note dated 01/03/2021. 55-year-old male, postop day #3, status post robotically assisted thymectomy, for thymoma. The patient's right-sided chest tube is still in place, the patient still having evidence of subcutaneous emphysema. He has been seen by thoracic early this morning. White count is 7.7, hemoglobin 16.5, hematocrit 48.1, and platelet count 255,000. Sodium 134, potassium 4.1, chlorides 100, CO2 27, anion gap 7, BUN 24, and creatinine 0.88. Chest x-ray shows persistent subcutaneous emphysema, with a small left-sided pleural effusion. Clinically, he is feeling a bit better. On 01/04/2021, the patient is postop day #4 following his robotic-assisted thy mectomy for thymoma. He still has a chest tube on the right pleural cavity and output from the right-sided chest tube has been 6 20 mL over the past 24 hours. His chest x-ray from today shows a small left-sided pleural effusion along with some atelectatic changes in the left lung base. The gastric bubble is sitting higher and there is evidence of subcutaneous emphysema along the right lateral c hest wall. Ultrasound of the chest was also done and the findings are consistent with a small left-sided pleural effusion measuring 3.1 cm in size. The patient is currently on room air oxygen. The patient has a renal function is stable with a creatinine of 0.8. Sodium is at 1:30. Rest of the blood work including hemoglobin is at 15.4 and a white cell count is at 7.3. No other significant events otherwise for now. The chest she will was attached to low intermittent suction and fluid analysis was sent for triglycerides rule out the possibility of chylothorax. On 01/05/2021, the patient is postop day #5. Patient is doing well. Amount of subcutaneous emphysema is less than today's evaluation. Output from the chest tube is also less than over the past 8 hours the patient has put out only 90 mL of milky white material which probably is colitis. The triglyceride level from the pleural fluid is still pending for now. Meanwhile the patient is on low-fat diet for now. The cath on his chest is also improved. Chest x-ray from today shows a very questionable tiny left apical pneumothorax. The right lung is well expanded. The patient has a right-sided chest tube in place. No evidence of any air leak. No chest pain. No fever. No chills. No night sweats. No other significant events overnight. His blood work from yesterday shows no significant abnormalities. No fractures which chest pain. The thymus pathology is not back yet. Objective - Vital Signs Vital signs: Vital Signs Temp 97.4 F L 01/05/21 04:00 Pulse 64 01/05/21 08:06 Resp 18 01/05/21 04:00 BP 120/79 01/05/21 04:00 Pulse Ox 96 01/05/21 04:00 Intake & Output 01/04/21 01/05/21 01/05/21 18:59 06:59 18:59 Intake Total 500 1330 560 Output Total 1250 90 Balance -750 1240 560 Weight 95.2 kg Intake: IV 20 10 Invasive Line 4 20 10 Oral 480 1320 560 Output: Chest Tube Drainage 90 Chest Tube Right 90 Drainage 200 Right Chest 200 Urine 1050 Other: Voiding Method Urinal Urinal # Voids 1 - Exam No acute distress, oriented 3. Currently on room air. No conversational dyspnea, audible wheezing, or use of accessory muscles. HEENT examination is grossly unremarkable. Mucous membranes are moist. No oral lesions. Neck supple. Full range of motion. No adenopathy thyromegaly or neck vein distention. Cardiovascular examination reveals regular rhythm rate. S1-S2 normal. No S3 or S4. No discernible murmur noted. Heart sounds are distant. Lungs reveal diminished bilateral breath sounds. There is bronchial breath on the left lung base along with dullness to percussion consistent with pleural effusion. The patient also has appearance emphysema extending along the right side of the chest. Right-sided chest tube is in place. Abdomen soft bowel sounds are heard. No masses or tenderness. Extremities are intact. No cyanosis clubbing or edema. Skin reveals subcutaneous emphysema over the chest and neck areas. Neurologic examination is brief but nonfocal. - Labs CBC & Chem 7: 01/05/21 07:05 01/05/21 07:05 Labs: Abnormal Lab Results - Last 24 Hours (Table) 01/05/21 01/05/21 Range/Units 07:05 07:05 Hgb 17.9 H (13.0-17.5) gm/dL Hct 53.1 H (39.0-53.0) % MCV 101.4 H (80.0-100.0) fL Sodium 134 L (137-145) mmol/L Glucose 109 H (74-99) mg/dL AST 105 H (17-59) U/L ALT 122 H (4-49) U/L Assessment and Plan Plan: 1 Postop day #5, status post robotically assisted thoracoscopic thymectomy, for primary thymoma. Patient has a right-sided chest tube and the chest tube is in a good location. He has developed some subcutaneous emphysema on the right w hich is improving. Nevertheless, the fluid output is milky and there is a possibility of a chylous pleural fusion/hydrothorax. The fluid will be analyzed. The fluid triglycerides still pending for now. Meanwhile, the patient is on low fat diet and the patient's output from the right-sided chest tube is improved and is only in the order of 96 over the past 8 hours. Chest x- ray shows no evidence of any pneumothorax. The patient has a small left-sided pleural effusion.. The patient is on room air oxygen for now. The patient has no new complaints and the subcutaneous emphysema is also improving. 2 Postoperative subcutaneous emphysema and pneumomediastinum. 3 History of asthma, currently maintained on Wixela and Proventil, stable. 4 History of insomnia. 5 History of cholecystectomy. 6 History of hayfever. Plan: Analyzed the pleural fluid for triglycerides rule out chylous pleural effusion. Low-fat diet Keep the chest tube to low continuous wall suction Continue using incentive spirometer Continue Symbicort Daily chest x-rays. We'll continue to follow. Patient is on room air oxygen subcutaneous emphysema over both chest areas and the neck area is also improving. Awaiting final pathology from the thymus.
--- NOTE | 2021-01-05 12:11 | P.PN ---
Subjective Progress Note Date: 01/05/21 Principal diagnosis: Thymic mass. Past medical history significant for recent Covid infection in October 2020, asthma, previous tobacco dependence, hypertension, hyperlipidemia, and family history of cancer. POD #5 robotic-assisted right thoracoscopic total thymectomy. Possible postoperative chylothorax, an unexpected the potential outcome of surgery. Patient is seen in follow-up today 01/05/2021 at his bedside on the cardiac stepdown unit. Currently he is lying in bed, is awake, alert and oriented 3. Denies any complaints of pain or shortness of breath. Patient's Betzy is present at his bedside. He remains afebrile last 24 hours, remote telemetry showing normal sinus rhythm heart rate 78 BPM. Right pleural chest tube remains to low continuous wall suction at -20 cm H2O. No air leak is present. Continues to drain serosanguineous milky-colored drainage with 70 mL output in the last 8 hours and 350 mL output in the last 24 hours. Triglycerides from the pleural fluid results are still pending. He continues on a no fat diet. The patient reports he is ambulating in the cardiac stepdown unit in all way without difficulty. Laboratory results from today show a WBC count 7.0, hemoglobin 17.9, hematocrit 53.1, platelets 393, BUN 19, creatinine 0.95, liver enzymes slightly elevated with his AST 105 and ALT 122. Amylase and lipase were within normal limits. Objective - Vital Signs Vital signs: Vital Signs Temp 98.1 F 01/05/21 08:00 Pulse 68 01/05/21 11:41 Resp 16 01/05/21 08:00 BP 109/72 01/05/21 08:00 Pulse Ox 96 01/05/21 08:00 Intake & Output 01/04/21 01/05/21 01/05/21 18:59 06:59 18:59 Intake Total 500 1330 560 Output Total 1250 90 Balance -750 1240 560 Weight 95.2 kg Intake: IV 20 10 Invasive Line 4 20 10 Oral 480 1320 560 Output: Chest Tube Drainage 90 Chest Tube Right 90 Drainage 200 Right Chest 200 Urine 1050 Other: Voiding Method Urinal Urinal Urinal # Voids 1 - Constitutional General appearance: Present: cooperative, no acute distress, obese - EENT Eyes: Present: normal appearance. Absent: scleral icterus ENT: Present: hearing grossly normal - Neck Details: Neck supple, no JVD. No lymphadenopathy. - Respiratory Details: Lung sounds essentially clear throughout. Respirations are symmetrical and nonlabored. Oxygen saturation are 96% on room air. Achieving 2000 milliliters on his incentive spirometry. Right pleural chest tube remains in place to low continuous wall suction -20 cm H2O. No air leak is present. Draining thin serosanguineous milky-colored drainage with 70 mL output in the last 8 hours at 350 L output in the last 24 hours. - Cardiovascular Details: Regular rhythm and rate. S1 and S2 present, negative for S3, gallop or murmur. Remote telemetry showing normal sinus rhythm heart rate 78 BPM. No edema present. Knee-high CAROLYN hose in place to his bilateral lower extremities. - Gastrointestinal Gastrointestinal Comment(s): Abdomen is soft, nontender and nondistended. Active bowel sounds present in all 4 abdominal quadrants. No guarding or rigidity. No organomegaly appreciated. - Genitourinary Genitourinary Comment(s): Continues to void. - Integumentary Integumentary Comment(s): Skin is warm and dry. No clubbing or cyanosis is present. Right lateral chest incisions clean, dry and approximated. No drainage or redness is present. - Neurologic Neurologic: Present: CNII-XII intact. Absent: focal deficits - Musculoskeletal Musculoskeletal: Present: gait normal, strength equal bilaterally - Psychiatric Psychiatric: Present: A&O x's 3, appropriate affect, intact judgment & insight - Allied health notes Allied health notes reviewed: nursing - Labs CBC & Chem 7: 01/05/21 07:05 01/05/21 07:05 Labs: Abnormal Lab Results - Last 24 Hours (Table) 01/05/21 01/05/21 Range/Units 07:05 07:05 Hgb 17.9 H (13.0-17.5) gm/dL Hct 53.1 H (39.0-53.0) % MCV 101.4 H (80.0-100.0) fL Sodium 134 L (137-145) mmol/L Glucose 109 H (74-99) mg/dL AST 105 H (17-59) U/L ALT 122 H (4-49) U/L - Imaging and Cardiology Chest x-ray: report reviewed, image reviewed Assessment and Plan Assessment: 1. Thymic mass, status post robotic-assisted right thoracoscopic total thymectomy 2. Postoperative subcutaneous emphysema and pneumomediastinum 3. History of recent Covid infection in October 2020 4. Asthma 5. Previous tobacco dependence 6. Hypertension 7. Hyperlipidemia, cholesterol 237, LDL 142 8. Family history of cancer 9. Probable postoperative chylothorax, unexpected Plan: 1. Continue chest tube to low continuous wall suction -20 cm H2O. May disconnect from suction to ambulate in the hallway and bathroom. 2. Continue to monitor daily chest x-rays. 2. Continue No fat, medium-chain triglyceride diet, continue to monitor for chylothorax resolution. 3. Increase activity, ambulate as tolerated. Patient should be out of bed for all meals. 4. Wean O2 as tolerated. Encourage is and spirometry 10 times every hour while awake. Bronchodilators management per pulmonology/critical care medicine. 5. GI/DVT prophylaxis. 6. Pain controlled current when necessary medication regimen. 7. Medical management of other comorbidities per Dr. Artis. 8. Pathology results remain pending. 9. Encourage use of his incentive spirometry 10 times every hour while awake. 10. Continue Sandostatin to 200 mg subcutaneous 3 times a day. 11. The patient's Betzy has been updated on his care. 12. Send lipase and amylase as his liver enzymes are trending up. 13. More recommendations to follow based on patient's clinical course. Time with Patient: Greater than 30
--- NOTE | 2021-01-05 13:49 | P.PN ---
Subjective Progress Note Date: 01/05/21 This is a 55-year-old male patient of mine with past medical history of hypertension, mild intermittent asthma, history of COVID-19 infection October 2020, remote history of tobacco use, regular alcohol use, patient was treated for Covid 19 infection back in October 2020 was transferred from [facility] at that time he underwent computed tomography scan of the chest with contrast to rule out any pulmonary embolism it did show a mediastinal mass about 2.5 cm for which she was seen in consultation by Dr. 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 Stevens for robotic-assisted thymectomy that was done yesterday were asked to see the p atient for medical management. Patient is laying down in bed in no apparent distress at this time he is complaining of some pain at the site where his chest tube is he does appear to be a bit anxious, he has oxygen, he was instructed to use the incentive spirometer, he does not appear to be in acute respiratory distress. Hopefully the Chest tube will come out tomorrow morning and he would be able to be discharged home in the next 1 or 2 days. 01/01: Patient is postop day #1 seen on the cardiac stepdown unit. Pathology report is pending. Repeat chest x-ray is stable findings. A chest tube remains in place which is quite painful -06/15. He is having difficulty with deep breathing secondary to the pain. He is only reaching 500 mL on incentive spirometry. He has been afebrile, heart rate 75, blood pressure 114/76, pulse ox 95% on 3 L nasal cannula. Repeat blood work reveals WBC of 10, hemoglobin 15.4. Sodium 132, potassium 4.1, creatinine 0.82. Blood sugar 125. Total bilirubin 0.8, AST 66, ALT 87, alkaline phosphatase 44. Plan is to increase activity, keep the chest tubes for another day. 01/04: The weekend, patient was followed by [facility] hospitalist. Patient states that he continues to have chest discomfort and tightness in his chest. He is using incentive spirometry and reaching 1800 mL. Patient's also states that he has been ambulating in the hallway. She and and his are inquiring whether he should be transferred to another facility. At this time was discussed the patient will continue current treatment for the next 24 hours and then make determination at that time. He has a chest tube on the right pleural cavity that is attached to low int ermittent suction. No air leak. Pleural fluid is being analyzed for triglycerides to rule out chylous pleural effusion. The chest x-ray reveals persistent subcutaneous emphysema. Small to moderate left pleural effusion and left-sided volume loss we demonstrated. No obvious pneumothorax with right- sided chest tube we demonstrated. No significant change. Ultrasound of the chest ordered and reveals left pleural effusion on 3.1 cm. She has been afebrile, heart rate in the 60s, blood pressure 108/70, pulse ox 94% on room air. CBC is unremarkable. Sodium 130, creatinine 0.86. AST 73, ALT 73, alkaline phosphatase 50. 3/2: Patient has been afebrile, heart rate 71, blood pressure 120/79, pulse ox 96% on room air. Urinalysis was negative for infection. Repeat chest x-ray reveals suspected trace 6 mm left apical pneumothorax. Right-sided chest tube. Continued moderate left effusion with adjacent atelectasis and/or consolidation. Subcutaneous emphysema right greater than left is improving. Triglyceride report from pleural fluid is pending. Pathology report remains pending. Objective - Vital Signs Vital signs: Vital Signs Temp 97.4 F L 01/05/21 04:00 Pulse 71 01/05/21 04:00 Resp 18 01/05/21 04:00 BP 120/79 01/05/21 04:00 Pulse Ox 96 01/05/21 04:00 Intake & Output 01/04/21 01/05/21 01/05/21 18:59 06:59 18:59 Intake Total 500 1330 Output Total 1250 90 Balance -750 1240 Weight 95.2 kg Intake: IV 20 10 Invasive Line 4 20 10 Oral 480 1320 Output: Chest Tube Drainage 90 Chest Tube Right 90 Drainage 200 Right Chest 200 Urine 1050 Other: Voiding Method Urinal Urinal # Voids 1 - Exam Review of Systems Constitutional: Denies anorexia, Denies chronic headaches, Denies lethargy, Denies weakness, Denies weight gain Eyes: denies blurred vision, denies bulging eye, denies decreased vision Ears: deny: decreased hearing Ears, nose, mouth and throat: Denies dysphagia, Denies neck lump, Denies sore throat Cardiovascular: Reports chest pain, Denies decreased exercise tolerance, Denies dyspnea on exertion, Denies lightheadedness, Denies rapid heart beat, Denies shortness of breath, Denies syncope Respiratory: Denies congestion, Denies cough, Denies cough with sputum, Denies home oxygen, Denies sleep apnea, Denies snoring, Denies wheezing Gastrointestinal: Denies abdominal pain, Denies bloating, Denies BRBPR, Denies early satiety, Denies loss of appetite, Denies melena, Denies nausea, Denies vomiting Genitourinary: Denies dysuria, Denies nocturia Musculoskeletal: Denies atrophy, Denies gait dysfunction, Denies low back pain Musculoskeletal: absent: ankle pain, ankle stiffness, ankle swelling, elbow pain, elbow stiffness, elbow swelling, foot pain, foot stiffness, foot swelling, hand pain, hand stiffness, hand swelling, hip pain, hip stiffness, hip swelling, knee pain, knee stiffness, knee swelling, shoulder pain, shoulder stiffness, shoulder swelling, wrist pain, wrist stiffness, wrist swelling Integumentary: Denies pruritus, Denies rash Neurological: Denies numbness, Denies weakness Psychiatric: Reports anxiety, Denies depression, Denies sadness/tearfulness, Denies sleep disturbances, Denies suicidal ideation Endocrine: Denies fatigue, Denies weight change Physical examination: HEENT: Head is atraumatic, normocephalic, pupils were equal round reactive to light and accommodation, extraocular muscle movement intact, mucous membranes of the mouth are somewhat dry. Neck: Supple, no JVD, no carotid bruit. Chest: Decreased breath sounds at bases few rhonchi no expiratory wheezes, minimal chest wall tenderness, no intercostal retractions. Subcutaneous emphysema noted, improving. Right-sided chest tube with milky white drainage. Heart: First heart sound is depressed, second heart sounds normal, there is no gallop or murmur. Abdomen: Soft, minimal nonspecific tenderness no rebound or guarding positive bowel sounds Extremities: No pedal edema, dorsalis pedis +2 bilaterally, there is no calf tenderness. Neurologic examination: Patient is awake alert and oriented ?-3, cranial nerves 2-12 are grossly intact, muscle power 5 out of 5 in upper and lower extremities bilaterally, deep tendon reflexes were normal. - Labs CBC & Chem 7: 01/05/21 07:05 01/05/21 07:05 Labs: Abnormal Lab Results - Last 24 Hours (Table) 01/04/21 01/04/21 Range/Units 07:30 07:30 MCV 100.1 H (80.0-100.0) fL Sodium 130 L (137-145) mmol/L Glucose 108 H (74-99) mg/dL AST 73 H (17-59) U/L ALT 73 H (4-49) U/L Total Protein 5.0 L (6.3-8.2) g/dL Albumin 2.7 L (3.5-5.0) g/dL Assessment and Plan Plan: 1. Post operative day #5 status post robotic-assisted thymectomy. Patient was instructed to continue the use of incentive spirometer to reduce the incidence of atelectasis and healthcare associated pneumonia, continue current oxygen support, continue current pain management as outlined by thoracic surgery, continue activity . Chest ultrasound as above. Pathology report is pending. Triglycerides level on pleural fluid pending. Patient started on Sandostatin 200 g subcu every 8 hours. 2. Primary thymoma discovered on computed tomography scan of the chest followed by a PET scan as an outpatient. 3. Prior history of COVID-19 back in October 2020. Recovered fully 4. Hypertension and hypertensive cardio vascular disease. Continue metoprolol ER 25 mg orally once every day. 5. Hyperlipidemia. Continue patient on low-cholesterol diet. 6. Mild persistent asthma. Continue patient on DuoNeb 3 mL nebulization every 6 hours, we will continue oxygen support, we'll continue with Symbicort 80/4.5 g 2 puffs inhalation twice every day. 7. Anxiety disorder. Continue patient on Xanax 0.5 mg orally once every day as needed. 8. Pain management. Continue with tramadol 50 mg orally every 6 hours as needed along with Tylenol in between. 9. DVT prophylaxis. Early ambulation, continue with the heparin 5000 units subcutaneously every 8 hours. 10. GI prophylaxis. Continue Protonix 40 mg orally once every day. Discharge plan: Most likely return home. Impression and plan of care have been directed as dictated by the signing physician. Sanjuanita Convery nurse practitioner acting as scribe for signing physician.
[2021-01-05 14:03] VITALS: BMI 28.4
[2021-01-05 15:19] LABS: INR 0.9 (<1.2); Prothrombin Time 9.9 sec (9.0-12.0)
--- NOTE | 2021-01-05 15:57 | CDI ---
Documentation Clarification Form Date: 01/05/2021 03:45:40 PM From: Olivia Barajas CCS, CCDS Admit Date: 12/31/2020 05:59:00 AM Patient Name: Ehsan Ball Visit Number: [id number] Discharge Date: ATTENTION: The Clinical Documentation Specialists (CDI) and [facility] Coding Staff appreciate your assistance in clarifying documentation. Please respond to the clarification below the line at the bottom and electronically sign. The CDI & [facility] Coding staff will review the response and follow-up if needed. Please note: Queries are made part of the Legal Health Record. If you have any questions, please contact the author of this message via ITS. Dr. Ehsan Stevens: Per the 01/02 Pulmonary/Critical Care Surgeon Progress Note on 01/02: "Postoperative subcutaneous emphysema and pneumomediastinum." Postoperative Subcutaneous Emphysema and Pneumomediastinum are also documented in the Cardiothoracic Surgeon's Progress Note on 01/02 and in subsequent Progress Notes. Patients Admitting Diagnosis per 12/31 OR Note: Thymic mass Post-Operative Diagnosis: Same Procedure performed 12/31: Robotic Assisted Right Thoracoscopic Total Thymectomy. History/Risk Factors: COVID 19 in September 2020, Asthma, Insomnia, Hypertension, Hyperlipidemia. Clinical Indicators: Patient was scheduled for an elective Thymectomy for evaluation of a Mediastinal Mass vound on CT. 01/02 CXR: Worsening subcutaneous emphysema and pneumomediastinum. Treatment 01/05: Right Chest tube continued to continuous wall suction, Daily CXRs, No fat, medium chain Triglyceride Diet, Ambulate as tolerated, Wean O2 as tolerated, Pain control, Incentive Spirometry, Sandostatin 200 mg sq TID. In order to accurately reflect this patients severity of illness, please clarify if the documented "Postoperative subcutaneous Emphysema and Pneumomediastinum": o Is a complication of surgical procedure xo Is an expected outcome of the surgical procedure o Is related to co-morbid condition(s) of (please specify): o Other please specify o Unable to determine (Last Revision: December 2019) MTDD
[2021-01-05] MEDS: METOPROLOL SUCCINATE (ER) 25 MG TAB.ER.24H PO SCH (17:52)
[2021-01-06] MEDS: HYDROcodone/APAP 7.5-325MG 1 EACH TAB PO PRN ×3 (06:21→17:12)
[2021-01-06] MEDS: PANTOPRAZOLE 40 MG TABLET PO SCH (06:21)
[2021-01-06 07:32] LABS: Basophils # (A) 0.1 k/uL (0-0.2); Basophils % (A) 1 %; Eosinophils # (A) 0.6 k/uL (0-0.7); Eosinophils % (A) 7 %; HCT 47.1 % (39.0-53.0); HGB 15.8 gm/dL (13.0-17.5); Lymphocytes # (A) 0.9 k/uL (1.0-4.8); Lymphocytes % (A) 10 %; MCH 33.6 pg (25.0-35.0); MCHC 33.5 g/dL (31.0-37.0); MCV 100.5 fL (80.0-100.0); Monocytes # (A) 0.7 k/uL (0-1.0); Monocytes % (A) 8 %; Neutrophils # (A) 6.1 k/uL (1.3-7.7); Neutrophils % (A) 72 %; Platelet Count 332 k/uL (150-450); RBC 4.69 m/uL (4.30-5.90); RDW 12.2 % (11.5-15.5); WBC 8.4 k/uL (3.8-10.6)
[2021-01-06 07:49] LABS: ALT 103 U/L (4-49); AST 78 U/L (17-59); African American GFR (CKD) >90 (>60 ml/min/1.73 sqM); Albumin 3.2 g/dL (3.5-5.0); Alkaline Phosphatase 52 U/L (38-126); Anion Gap 4 mmol/L; Blood Urea Nitrogen 16 mg/dL (9-20); Calcium 8.9 mg/dL (8.4-10.2); Carbon Dioxide 29 mmol/L (22-30); Chloride 100 mmol/L (98-107); Glucose 115 mg/dL (74-99); Non-African American GFR(CKD) >90 (>60 ml/min/1.73 sqM); Potassium 4.8 mmol/L (3.5-5.1); Sodium 133 mmol/L (137-145); Total Bilirubin 0.8 mg/dL (0.2-1.3); Total Protein 5.8 g/dL (6.3-8.2)
[2021-01-06] MEDS: IPRATROPIUM-ALBUTEROL 3 ML NEB IH SCH ×4 (07:58→20:12)
[2021-01-06] MEDS: SYMBICORT 80-4.5 MCG INHALER INHALATION SCH ×2 (07:58→20:13)
--- NOTE | 2021-01-06 08:08 | XR ---
EXAMINATION TYPE: XR chest 1V portable DATE OF EXAM: 01/06/2021 COMPARISON: 01/05/2021 INDICATION: Postoperative thymectomy TECHNIQUE: Single frontal view of the chest is obtained. FINDINGS: The heart size is normal. The pulmonary vasculature is normal. There is a small to moderate left pleural fluid collection. Right-sided chest tube is present. No rig ht-sided pneumothorax is evident. Very minimal left apical pneumothorax may remain present. IMPRESSION: 1. Small to moderate stable left pleural fluid. 2. Minimal left apical pneumothorax. 3. Stable right-sided chest tube.
[2021-01-06] MEDS: OCTREOTIDE 100 MCG/ML INJ SQ SCH ×2 (09:47→17:16)
[2021-01-06] MEDS: KETOROLAC 15 MG/ML 1 ML VIAL IVP SCH ×3 (09:47→20:50)
--- NOTE | 2021-01-06 10:20 | P.PN ---
Subjective Progress Note Date: 01/06/21 This is a 55-year-old male, postop day #1, status post ectomy, for a thymoma. The patient mass was discovered initially at [facility], back in early September. Currently, the patient's doing reasonably well, although he is complaining of pain. In addition, he still has a chest tube in. He had a robotically assisted thymectomy. The surgery was done by Dr. Stevens. Currently, the patient's off oxygen. On room air, saturations are 95%. The mass measured 2 x 2.5 cm. In the PET scan of the mass was essentially negative. The final pathology report is not yet back, but likely this is a benign thymoma. Most are. The patient's major complaint includes pain on deep inspiration. We'll encourage deep breathing coughing clearing secretions, and hourly use of incentive spirometer. White count is 10.0, hemoglobin 15.4, hematocrit 46.4, and platelet count 229,000. Sodium 132, potassium 4.1, chlorides 98, CO2 28, anion gap 6, BUN 16, and creatinine 0.82. Progress note dated 01/02/2021. 55-year-old male, postop day #2, status post thymectomy, for a thymoma. The patient had a robotically assisted thoracoscopic thymectomy. Currently, the right-sided chest tube is still in place. Unfortunately, he's developed some subcutaneous emphysema. The patient's also having drainage from the chest tube. The surgery was done by Dr. Stevens. He'll end up seeing one of the other thoracic surgeons today. He has been weaned off of oxygen therapy. White count is 9, hemoglobin 16.6, hematocrit 51.7, and platelet count 262,000. Sodium 135, potassium 4.5, chloride 99, CO2 29, anion gap 7, BUN 27, and creatinine 0.99. Pathology report is currently still pending. There was not a significant leak from the chest tube on the right. The chest x-ray showed worsening subcutaneous emphysema and pneumomediastinum, but moderate sized left rated the right pleural effusion. There is no pneumothorax noted. Progress note dated 01/03/2021. 55-year-old male, postop day #3, status post robotically assisted thymectomy, for thymoma. The patient's right-sided chest tube is still in place, the patient still having evidence of subcutaneous emphysema. He has been seen by thoracic early this morning. White count is 7.7, hemoglobin 16.5, hematocrit 48.1, and platelet count 255,000. Sodium 134, potassium 4.1, chlorides 100, CO2 27, anion gap 7, BUN 24, and creatinine 0.88. Chest x-ray shows persistent subcutaneous emphysema, with a small left-sided pleural effusion. Clinically, he is feeling a bit better. On 01/04/2021, the patient is postop day #4 following his robotic-assisted thy mectomy for thymoma. He still has a chest tube on the right pleural cavity and output from the right-sided chest tube has been 6 20 mL over the past 24 hours. His chest x-ray from today shows a small left-sided pleural effusion along with some atelectatic changes in the left lung base. The gastric bubble is sitting higher and there is evidence of subcutaneous emphysema along the right lateral c hest wall. Ultrasound of the chest was also done and the findings are consistent with a small left-sided pleural effusion measuring 3.1 cm in size. The patient is currently on room air oxygen. The patient has a renal function is stable with a creatinine of 0.8. Sodium is at 1:30. Rest of the blood work including hemoglobin is at 15.4 and a white cell count is at 7.3. No other significant events otherwise for now. The chest she will was attached to low intermittent suction and fluid analysis was sent for triglycerides rule out the possibility of chylothorax. On 01/05/2021, the patient is postop day #5. Patient is doing well. Amount of subcutaneous emphysema is less than today's evaluation. Output from the chest tube is also less than over the past 8 hours the patient has put out only 90 mL of milky white material which probably is colitis. The triglyceride level from the pleural fluid is still pending for now. Meanwhile the patient is on low-fat diet for now. The cath on his chest is also improved. Chest x-ray from today shows a very questionable tiny left apical pneumothorax. The right lung is well expanded. The patient has a right-sided chest tube in place. No evidence of any air leak. No chest pain. No fever. No chills. No night sweats. No other significant events overnight. His blood work from yesterday shows no significant abnormalities. No fractures which chest pain. The thymus pathology is not back yet. On 01/06/2021, the patient is postop day #6. In terms of his operative from the right-sided chest tube, the output has been decreasing and the patient is producing only 200 mL of chylous material from the right lung. Meanwhile, there is still a pleural effusion on the left which is small and patient will have an interventional radiology guided drainage of the left-sided pleural effusion. No significant substance emphysema. The patient is on room air oxygen. No fever or chills. No evidence of any air leak from the chest tube. No other significant events otherwise. His diet has been changed and the patient is fatty diet. No chest pain. No altered mentation. No fever or chills. avoiding all sorts of tests. Objective - Vital Signs Vital signs: Vital Signs Temp 98.5 F 01/05/21 20:24 Pulse 72 01/06/21 08:09 Resp 17 01/06/21 04:00 BP 129/70 01/06/21 04:00 Pulse Ox 93 L 01/06/21 04:00 Intake & Output 01/05/21 01/06/21 01/06/21 18:59 06:59 18:59 Intake Total 1360 20 Output Total 590 100 Balance 770 -80 Weight 95.2 kg 91.2 kg Intake: IV 20 Invasive Line 5 20 Oral 1360 Output: Chest Tube Drainage 40 100 Chest Tube Right 40 100 Urine 550 Other: Voiding Method Urinal Urinal # Voids 1 - Exam No acute distress, oriented 3. Currently on room air. HEENT examination is grossly unremarkable. Mucous membranes are moist. No oral lesions. Neck supple. Full range of motion. No adenopathy thyromegaly or neck vein distention. Cardiovascular examination reveals regular rhythm rate. S1-S2 normal. No S3 or S4. No discernible murmur noted. Heart sounds are distant. Lungs reveal diminished bilateral breath sounds. There is bronchial breath on the left lung base along with dullness to percussion consistent with pleural effusion. The patient also has appearance emphysema extending along the right side of the chest. Right-sided chest tube is in place. There is no evidence of any air leak. There is output in order of 200 mL of bronchitis splitting of the past 24 hours. Abdomen soft bowel sounds are heard. No masses or tenderness. Extremities are intact. No cyanosis clubbing or edema. Skin reveals subcutaneous emphysema over the chest and neck areas. Neurologic examination is brief but nonfocal. - Labs CBC & Chem 7: 01/06/21 06:54 01/06/21 06:54 Labs: Abnormal Lab Results - Last 24 Hours (Table) 01/06/21 01/06/21 Range/Units 06:54 06:54 MCV 100.5 H (80.0-100.0) fL Lymphocytes # 0.9 L (1.0-4.8) k/uL Sodium 133 L (137-145) mmol/L Glucose 115 H (74-99) mg/dL AST 78 H (17-59) U/L ALT 103 H (4-49) U/L Total Protein 5.8 L (6.3-8.2) g/dL Albumin 3.2 L (3.5-5.0) g/dL Assessment and Plan Plan: 1 Postop day #6, status post robotically assisted thoracoscopic thymectomy, for primary thymoma. Patient has a right-sided chest tube and the chest tube is in a good location. He has developed this right-sided pleural effusion probably related to thoracic duct injury and output has dropped as the patient's dietary changes have been implemented. Meanwhile, the patient has also developed some subcutaneous emphysema which is also improving. The chest x-ray today shows a left-sided pleural effusion for which a drainage procedure will be done by interventional radiology. The patient is otherwise doing well. Right-sided chest tube. 2 Postoperative subcutaneous emphysema and pneumomediastinum. 3 History of asthma, currently maintained on Wixela and Proventil, stable. 4 History of insomnia. 5 History of cholecystectomy. 6 History of hayfever. Plan: Analyzed the pleural fluid for triglycerides rule out chylous pleural effusion. We decided to keep the chest tube in for another day. Low-fat diet Keep the chest tube to low continuous wall suction and monitor the output and perform a diagnostic thoracentesis on the left Continue using incentive spirometer Continue Symbicort Daily chest x-rays. We'll continue to follow. Patient is on room air oxygen subcutaneous emphysema over both chest areas and the neck area is also improving. On the pathology from the thymus has been sent [facility] for further evaluation.
--- NOTE | 2021-01-06 10:53 | P.PN ---
Subjective Progress Note Date: 01/06/21 Principal diagnosis: Thymic mass. Past medical history significant for recent Covid infection in October 2020, asthma, previous tobacco dependence, hypertension, hyperlipidemia, and family history of cancer. POD #6 robotic-assisted right thoracoscopic total thymectomy. Possible postoperative chylothorax, an unexpected the potential outcome of surgery. The patient was seen in follow-up today 01/06/2021 at his bedside on the cardiac stepdown unit. Currently he is laying in bed, is awake, alert and oriented 3. He is complaining of some surgical type pain to his right chest tube insertion site. Denies any complaints of shortness of breath. Right pleural chest tube i n place to low continuous wall suction -20 cm H2O. No air leak is present. Draining serosanguineous milky-colored drainage, 150 mL output in the last 24 hours. Triglycerides from the pleural fluid results remain pending. Pathology results have been sent to [facility] for further consultation, this was discussed with the patient by Dr. Ho. Oxygen saturations are 93% on room air. Achieving 1500 mL on his incentive spirometry. He reports he has been ambulating in the cardiac stepdown in [facility] with minimal assistance. Remains afebrile the last 24 hours. Objective - Vital Signs Vital signs: Vital Signs Temp 98.5 F 01/05/21 20:24 Pulse 72 01/06/21 08:09 Resp 17 01/06/21 04:00 BP 129/70 01/06/21 04:00 Pulse Ox 93 L 01/06/21 04:00 Intake & Output 01/05/21 01/06/21 01/06/21 18:59 06:59 18:59 Intake Total 1360 20 Output Total 590 100 Balance 770 -80 Weight 95.2 kg 91.2 kg Intake: IV 20 Invasive Line 5 20 Oral 1360 Output: Chest Tube Drainage 40 100 Chest Tube Right 40 100 Urine 550 Other: Voiding Method Urinal Urinal # Voids 1 - Constitutional Constitutional Comment(s): Pain to his right chest tube insertion site, with taking a deep breath. General appearance: Present: cooperative, no acute distress - EENT Eyes: Present: normal appearance. Absent: scleral icterus ENT: Present: hearing grossly normal - Neck Details: Neck is supple, no JVD, no lymphadenopathy. - Respiratory Details: Lung sounds essentially clear throughout, diminished to his bilateral bases left greater than right. Respirations are symmetrical and nonlabored. Oxygen saturation is 93% on room air. Achieving 1500 mL on his incentive spirometry. Right pleural chest tube remains in place to low continuous wall suction -20 cm H2O. No airleak Present. Serosanguineous milky-colored drainage from the right pleural chest tube with 150 mL output in the last 24 hours. - Cardiovascular Details: Regular rhythm and rate. S1 and S2 present, negative for S3, gallop or murmur. Remote telemetry showing normal sinus rhythm heart rate 72 BPM. No edema present. Knee-high CAROLYN hose in place to his bilateral lower extremities. - Gastrointestinal Gastrointestinal Comment(s): Abdomen is soft, nontender and nondistended. Active bowel sounds present in all 4 abdominal quadrants. No guarding or rigidity. No organomegaly appreciated. Tolerating oral intake. - Genitourinary Genitourinary Comment(s): Continues to void. - Integumentary Integumentary Comment(s): Skin is warm and dry. No clubbing or cyanosis is present. Right lateral chest incisions are clean, dry and approximated. Dressings are clean, dry and intact. No drainage or redness is present. - Neurologic Neurologic: Present: CNII-XII intact. Absent: focal deficits - Musculoskeletal Musculoskeletal: Present: gait normal, strength equal bilaterally - Psychiatric Psychiatric: Present: A&O x's 3, appropriate affect, intact judgment & insight - Allied health notes Allied health notes reviewed: nursing - Labs CBC & Chem 7: 01/06/21 06:54 01/06/21 06:54 Labs: Abnormal Lab Results - Last 24 Hours (Table) 01/06/21 01/06/21 Range/Units 06:54 06:54 MCV 100.5 H (80.0-100.0) fL Lymphocytes # 0.9 L (1.0-4.8) k/uL Sodium 133 L (137-145) mmol/L Glucose 115 H (74-99) mg/dL AST 78 H (17-59) U/L ALT 103 H (4-49) U/L Total Protein 5.8 L (6.3-8.2) g/dL Albumin 3.2 L (3.5-5.0) g/dL - Imaging and Cardiology Chest x-ray: report reviewed, image reviewed Assessment and Plan Assessment: 1. Thymic mass, status post robotic-assisted right thoracoscopic total thymectomy 2. Postoperative subcutaneous emphysema and pneumomediastinum 3. History of recent Covid infection in October 2020 4. Asthma 5. Previous tobacco dependence 6. Hypertension 7. Hyperlipidemia, cholesterol 237, LDL 142 8. Family history of cancer 9. Probable postoperative chylothorax, unexpected Plan: 1. Continue chest tube to low continuous wall suction -20 cm H2O. May disconnect from suction to ambulate in the hallway and bathroom. Pleural triglyceride results remain pending. 2. Continue to monitor daily chest x-rays. 2. Continue No fat, medium-chain triglyceride diet, continue to monitor for chylothorax resolution. Drainage is slowly decreasing, 150 mL output in the last 24 hours. 3. Increase activity, ambulate as tolerated. Patient should be out of bed for all meals. 4. Encourage is and spirometry 10 times every hour while awake. Bronchodilators management per pulmonology/critical care medicine. 5. GI/DVT prophylaxis. 6. Pain controlled current when necessary medication regimen. Toradol 50 mg IV every 6 hours reinitiated. 7. Medical management of other comorbidities per Dr. Artis. 8. Pathology results were discussed with the patient by Dr. Ho. Final pathology results pending per [facility] addendum. 9. Encourage use of his incentive spirometry 10 times every hour while awake. 10. Continue Sandostatin to 200 mg subcutaneous 3 times a day. 11. Interventional radiology has been consulted for pigtail placement to his left chest, pleural effusion. 12. More recommendations to follow based on patient's clinical course. Time with Patient: Greater than 30
[2021-01-06] MEDS: MULTIVITAMINS, THERA 1 EACH TAB PO SCH (13:07)
--- NOTE | 2021-01-06 14:15 | US ---
Discontinued thoracentesis HISTORY: Pleural effusion Correlation to prior ultrasound chest 01/04/2021, chest x-ray dated 01/06/2021 Ultrasound posterior left chest shows no significant fluid. IMPRESSION: No evident thoracentesis. No fluid identified in the posterior left chest ultrasound.
--- NOTE | 2021-01-06 15:28 | P.PN ---
Subjective Progress Note Date: 01/06/21 This is a 55-year-old male patient of mine with past medical history of hypertension, mild intermittent asthma, history of COVID-19 infection October 2020, remote history of tobacco use, regular alcohol use, patient was treated for Covid 19 infection back in October 2020 was transferred from [facility] at that time he underwent computed tomography scan of the chest with contrast to rule out any pulmonary embolism it did show a mediastinal mass about 2.5 cm for which she was seen in consultation by Dr. Shay, he was recommended at that time to follow-up with him as an outpatient after the Covid infection is cleared patient came to the office and he was sent to see the dry kiln feeder where he had intact scan was ordered by him and that showed no uptake initially was decided the patient does have a mediastinal mass suggestive of possible primary thymoma, he was referred to Dr. Stevens for robotic-assisted thymectomy that was done yesterday were asked to see the p atient for medical management. Patient is laying down in bed in no apparent distress at this time he is complaining of some pain at the site where his chest tube is he does appear to be a bit anxious, he has oxygen, he was instructed to use the incentive spirometer, he does not appear to be in acute respiratory distress. Hopefully the Chest tube will come out tomorrow morning and he would be able to be discharged home in the next 1 or 2 days. 01/01: Patient is postop day #1 seen on the cardiac stepdown unit. Pathology report is pending. Repeat chest x-ray is stable findings. A chest tube remains in place which is quite painful -06/15. He is having difficulty with deep breathing secondary to the pain. He is only reaching 500 mL on incentive spirometry. He has been afebrile, heart rate 75, blood pressure 114/76, pulse ox 95% on 3 L nasal cannula. Repeat blood work reveals WBC of 10, hemoglobin 15.4. Sodium 132, potassium 4.1, creatinine 0.82. Blood sugar 125. Total bilirubin 0.8, AST 66, ALT 87, alkaline phosphatase 44. Plan is to increase activity, keep the chest tubes for another day. 01/04: The weekend, patient was followed by [facility] hospitalist. Patient states that he continues to have chest discomfort and tightness in his chest. He is using incentive spirometry and reaching 1800 mL. Patient's also states that he has been ambulating in the hallway. She and and his are inquiring whether he should be transferred to another facility. At this time was discussed the patient will continue current treatment for the next 24 hours and then make determination at that time. He has a chest tube on the right pleural cavity that is attached to low int ermittent suction. No air leak. Pleural fluid is being analyzed for triglycerides to rule out chylous pleural effusion. The chest x-ray reveals persistent subcutaneous emphysema. Small to moderate left pleural effusion and left-sided volume loss we demonstrated. No obvious pneumothorax with right- sided chest tube we demonstrated. No significant change. Ultrasound of the chest ordered and reveals left pleural effusion on 3.1 cm. She has been afebrile, heart rate in the 60s, blood pressure 108/70, pulse ox 94% on room air. CBC is unremarkable. Sodium 130, creatinine 0.86. AST 73, ALT 73, alkaline phosphatase 50. 01/05: Patient has been afebrile, heart rate 71, blood pressure 120/79, pulse ox 96% on room air. Urinalysis was negative for infection. Repeat chest x-ray reveals suspected trace 6 mm left apical pneumothorax. Right-sided chest tube. Continued moderate left effusion with adjacent atelectasis and/or consolidation. Subcutaneous emphysema right greater than left is improving. Triglyceride report from pleural fluid is pending. Pathology report remains pending. 01/06: Right sided chest tube remains in place with plan to remove tomorrow. He states pain right-side of chest was very severe this morning and was having trouble moving around and taking a deep breath but improved at the time of evaluation. Drainage is decreased but still milky consistency but minimal d rainage. He is seen today resting on the couch. He appears to be in no acute respiratory distress. Patient underwent US left side that showed no fluid and pigtail cath was canceled. Patient has been afebrile, HR 69, BP 113/71, PO 96% on RA. Objective - Vital Signs Vital signs: Vital Signs Temp 98.0 F 01/06/21 12:00 Pulse 69 01/06/21 12:37 Resp 16 01/06/21 12:37 BP 113/71 01/06/21 12:37 Pulse Ox 96 01/06/21 12:37 Intake & Output 01/05/21 01/06/21 01/06/21 18:59 06:59 18:59 Intake Total 1360 20 20 Output Total 590 100 200 Balance 770 -80 -180 Weight 95.2 kg 91.2 kg Intake: IV 20 20 Invasive Line 5 20 20 Oral 1360 Output: Chest Tube Drainage 40 100 200 Chest Tube Right 40 100 200 Urine 550 Other: Voiding Method Urinal Urinal Toilet # Voids 1 2 - Exam Review of Systems Constitutional: Denies anorexia, Denies chronic headaches, Denies lethargy, Denies weakness, Denies weight gain Eyes: denies blurred vision, denies bulging eye, denies decreased vision Ears: deny: decreased hearing Ears, nose, mouth and throat: Denies dysphagia, Denies neck lump, Denies sore throat Cardiovascular: Reports right sided chest pain, Denies decreased exercise tolerance, Denies dyspnea on exertion, Denies lightheadedness, Denies rapid heart beat, Denies shortness of breath, Denies syncope Respiratory: Denies congestion, Denies cough, Denies cough with sputum, Denies home oxygen, Denies sleep apnea, Denies snoring, Denies wheezing Gastrointestinal: Denies abdominal pain, Denies bloating, Denies BRBPR, Denies early satiety, Denies loss of appetite, Denies melena, Denies nausea, Denies vomiting Genitourinary: Denies dysuria, Denies nocturia Musculoskeletal: Denies atrophy, Denies gait dysfunction, Denies low back pain Musculoskeletal: absent: ankle pain, ankle stiffness, ankle swelling, elbow pain, elbow stiffness, elbow swelling, foot pain, foot stiffness, foot swelling, hand pain, hand stiffness, hand swelling, hip pain, hip stiffness, hip swelling, knee pain, knee stiffness, knee swelling, shoulder pain, shoulder stiffness, rudi ulder swelling, wrist pain, wrist stiffness, wrist swelling Integumentary: Denies pruritus, Denies rash Neurological: Denies numbness, Denies weakness Psychiatric: Reports anxiety, Denies depression, Denies sadness/tearfulness, Denies sleep disturbances, Denies suicidal ideation Endocrine: Denies fatigue, Denies weight change Physical examination: HEENT: Head is atraumatic, normocephalic, pupils were equal round reactive to light and accommodation, extraocular muscle movement intact, mucous membranes of the mouth are somewhat dry. Neck: Supple, no JVD, no carotid bruit. Chest: Decreased breath sounds at bases few rhonchi no expiratory wheezes, minimal chest wall tenderness, no intercostal retractions. Subcutaneous emphysema noted, resolving. Right-sided chest tube with milky white drainage- minimal output. Heart: First heart sound is depressed, second heart sounds normal, there is no gallop or murmur. Abdomen: Soft, minimal nonspecific tenderness no rebound or guarding positive bowel sounds Extremities: No pedal edema, dorsalis pedis +2 bilaterally, there is no calf tenderness. Neurologic examination: Patient is awake alert and oriented and Ox3, cranial nerves 2-12 are grossly intact, muscle power 5 out of 5 in upper and lower extremities bilaterally, deep tendon reflexes were normal. - Labs CBC & Chem 7: 01/06/21 06:54 01/06/21 06:54 Labs: Abnormal Lab Results - Last 24 Hours (Table) 01/06/21 01/06/21 Range/Units 06:54 06:54 MCV 100.5 H (80.0-100.0) fL Lymphocytes # 0.9 L (1.0-4.8) k/uL Sodium 133 L (137-145) mmol/L Glucose 115 H (74-99) mg/dL AST 78 H (17-59) U/L ALT 103 H (4-49) U/L Total Protein 5.8 L (6.3-8.2) g/dL Albumin 3.2 L (3.5-5.0) g/dL Assessment and Plan Plan: 1. Post operative day #6 status post robotic-assisted thymectomy. Patient was instructed to continue the use of incentive spirometery to reduce the incidence of atelectasis and healthcare associated pneumonia, continue current oxygen support, continue current pain management as outlined by thoracic surgery, co angela activity . Chest ultrasound as above. Pathology report is pending. Triglycerides level on pleural fluid pending. Patient started on Sandostatin 200 g subcu every 8 hours. Possible removal of CT tomorrow. Low fat diet. 2. Primary thymoma discovered on computed tomography scan of the chest followed by a PET scan as an outpatient. 3. Prior history of COVID-19 back in October 2020. Recovered fully 4. Hypertension and hypertensive cardio vascular disease. Continue metoprolol ER 25 mg orally once every day. 5. Hyperlipidemia. Continue patient on low-cholesterol diet. 6. Mild persistent asthma. Continue patient on DuoNeb 3 mL nebulization every 6 hours, we will continue oxygen support, we'll continue with Symbicort 80/4.5 g 2 puffs inhalation twice every day. 7. Anxiety disorder. Continue patient on Xanax 0.5 mg orally once every day as needed. 8. Pain management. Continue with tramadol 50 mg orally every 6 hours as needed along with Tylenol in between. 9. DVT prophylaxis. Early ambulation, continue with the heparin 5000 units subcutaneously every 8 hours. 10. GI prophylaxis. Continue Protonix 40 mg orally once every day. 11. Left-sided pleural effusion, resolved. Discharge plan: Return home. Impression and plan of care have been directed as dictated by the signing physician. Sanjuanita Cotton nurse practitioner acting as scribe for signing physi ramy.
[2021-01-06] MEDS: METOPROLOL SUCCINATE (ER) 25 MG TAB.ER.24H PO SCH (18:11)
[2021-01-06] MEDS: ALPRAZolam 0.5 MG TAB PO PRN (20:50)
[2021-01-07] MEDS: HYDROcodone/APAP 7.5-325MG 1 EACH TAB PO PRN ×5 (00:19→21:33)
[2021-01-07] MEDS: OCTREOTIDE 100 MCG/ML INJ SQ SCH ×4 (00:22→23:21)
[2021-01-07] MEDS: KETOROLAC 15 MG/ML 1 ML VIAL IVP SCH ×4 (04:54→21:33)
[2021-01-07] MEDS: PANTOPRAZOLE 40 MG TABLET PO SCH (06:22)
[2021-01-07] MEDS: SYMBICORT 80-4.5 MCG INHALER INHALATION SCH ×2 (07:51→20:05)
[2021-01-07] MEDS: IPRATROPIUM-ALBUTEROL 3 ML NEB IH SCH ×4 (07:51→20:05)
--- NOTE | 2021-01-07 09:07 | XR ---
EXAMINATION TYPE: XR chest 1V portable DATE OF EXAM: 01/07/2021 Comparison: 01/06/2021 Clinical History: 55-year-old male Postoperative thymectomy Findings: Apically directed right-sided chest tube remains in place. Now visualized is a trace 5 mm right apica l pneumothorax. Subcutaneous emphysema continues to improve, right greater than left. Trace left apical pneumothorax also redemonstrated though smaller now at 6 mm versus 1.2 cm, previous ly. Continued moderate left effusion with underlying opacity. This obscures the left heart margin. Impression: 1. Right-sided chest tube in place. Now visualized 5 mm trace right apical pneumothorax. 2. A trace 6 mm left apical pneumothorax is slightly smaller from 1.2 cm, previously. 3. Continued moderate left effusion with adjacent atelectasis and/or consolidation.
[2021-01-07 09:20] LABS: HGB 16.1 gm/dL (13.0-17.5); MCH 33.3 pg (25.0-35.0); MCHC 32.2 g/dL (31.0-37.0); MCV 103.4 fL (80.0-100.0); Macrocytosis Slight; Mean Platelet Volume 7.2; Platelet Count 337 k/uL (150-450); RBC 4.83 m/uL (4.30-5.90); RDW 12.9 % (11.5-15.5); WBC 8.1 k/uL (3.8-10.6)
[2021-01-07 09:23] LABS: ALT 96 U/L (4-49); AST 69 U/L (17-59); African American GFR (CKD) >90 (>60 ml/min/1.73 sqM); Albumin 3.3 g/dL (3.5-5.0); Alkaline Phosphatase 47 U/L (38-126); Anion Gap 6 mmol/L; Blood Urea Nitrogen 20 mg/dL (9-20); Calcium 8.9 mg/dL (8.4-10.2); Carbon Dioxide 31 mmol/L (22-30); Chloride 97 mmol/L (98-107); Glucose 127 mg/dL (74-99); Non-African American GFR(CKD) >90 (>60 ml/min/1.73 sqM); Sodium 134 mmol/L (137-145); Total Bilirubin 0.8 mg/dL (0.2-1.3); Total Protein 5.9 g/dL (6.3-8.2)
[2021-01-07] MEDS: ENOXAPARIN 40 MG/0.4 ML SYRINGE SQ SCH (09:28)
[2021-01-07] MEDS: MULTIVITAMINS, THERA 1 EACH TAB PO SCH (09:28)
--- NOTE | 2021-01-07 10:39 | P.PN ---
Subjective Progress Note Date: 01/07/21 This is a 55-year-old male, postop day #1, status post ectomy, for a thymoma. The patient mass was discovered initially at [facility], back in early September. Currently, the patient's doing reasonably well, although he is complaining of pain. In addition, he still has a chest tube in. He had a robotically assisted thymectomy. The surgery was done by Dr. Stevens. Currently, the patient's off oxygen. On room air, saturations are 95%. The mass measured 2 x 2.5 cm. In the PET scan of the mass was essentially negative. The final pathology report is not yet back, but likely this is a benign thymoma. Most are. The patient's major complaint includes pain on deep inspiration. We'll encourage deep breathing coughing clearing secretions, and hourly use of incentive spirometer. White count is 10.0, hemoglobin 15.4, hematocrit 46.4, and platelet count 229,000. Sodium 132, potassium 4.1, chlorides 98, CO2 28, anion gap 6, BUN 16, and creatinine 0.82. Progress note dated 01/02/2021. 55-year-old male, postop day #2, status post thymectomy, for a thymoma. The patient had a robotically assisted thoracoscopic thymectomy. Currently, the right-sided chest tube is still in place. Unfortunately, he's developed some subcutaneous emphysema. The patient's also having drainage from the chest tube. The surgery was done by Dr. Stevens. He'll end up seeing one of the other thoracic surgeons today. He has been weaned off of oxygen therapy. White count is 9, hemoglobin 16.6, hematocrit 51.7, and platelet count 262,000. Sodium 135, potassium 4.5, chloride 99, CO2 29, anion gap 7, BUN 27, and creatinine 0.99. Pathology report is currently still pending. There was not a significant leak from the chest tube on the right. The chest x-ray showed worsening subcutaneous emphysema and pneumomediastinum, but moderate sized left rated the right pleural effusion. There is no pneumothorax noted. Progress note dated 01/03/2021. 55-year-old male, postop day #3, status post robotically assisted thymectomy, for thymoma. The patient's right-sided chest tube is still in place, the patient still having evidence of subcutaneous emphysema. He has been seen by thoracic early this morning. White count is 7.7, hemoglobin 16.5, hematocrit 48.1, and platelet count 255,000. Sodium 134, potassium 4.1, chlorides 100, CO2 27, anion gap 7, BUN 24, and creatinine 0.88. Chest x-ray shows persistent subcutaneous emphysema, with a small left-sided pleural effusion. Clinically, he is feeling a bit better. On 01/04/2021, the patient is postop day #4 following his robotic-assisted thy mectomy for thymoma. He still has a chest tube on the right pleural cavity and output from the right-sided chest tube has been 6 20 mL over the past 24 hours. His chest x-ray from today shows a small left-sided pleural effusion along with some atelectatic changes in the left lung base. The gastric bubble is sitting higher and there is evidence of subcutaneous emphysema along the right lateral c hest wall. Ultrasound of the chest was also done and the findings are consistent with a small left-sided pleural effusion measuring 3.1 cm in size. The patient is currently on room air oxygen. The patient has a renal function is stable with a creatinine of 0.8. Sodium is at 1:30. Rest of the blood work including hemoglobin is at 15.4 and a white cell count is at 7.3. No other significant events otherwise for now. The chest she will was attached to low intermittent suction and fluid analysis was sent for triglycerides rule out the possibility of chylothorax. On 01/05/2021, the patient is postop day #5. Patient is doing well. Amount of subcutaneous emphysema is less than today's evaluation. Output from the chest tube is also less than over the past 8 hours the patient has put out only 90 mL of milky white material which probably is colitis. The triglyceride level from the pleural fluid is still pending for now. Meanwhile the patient is on low-fat diet for now. The cath on his chest is also improved. Chest x-ray from today shows a very questionable tiny left apical pneumothorax. The right lung is well expanded. The patient has a right-sided chest tube in place. No evidence of any air leak. No chest pain. No fever. No chills. No night sweats. No other significant events overnight. His blood work from yesterday shows no significant abnormalities. No fractures which chest pain. The thymus pathology is not back yet. On 01/06/2021, the patient is postop day #6. In terms of his operative from the right-sided chest tube, the output has been decreasing and the patient is producing only 200 mL of chylous material from the right lung. Meanwhile, there is still a pleural effusion on the left which is small and patient will have an interventional radiology guided drainage of the left-sided pleural effusion. No significant substance emphysema. The patient is on room air oxygen. No fever or chills. No evidence of any air leak from the chest tube. No other significant events otherwise. His diet has been changed and the patient is fatty diet. No chest pain. No altered mentation. No fever or chills. avoiding all sorts of tests. 01/07/2021 the patient is postop day #7. Right-sided chest tube still in place. Output has been in the order of 100 mL over the past 24 hours. Repeat chest x- ray shows minimal effusion on the right, minimal pneumothorax in the right apex, there was a left lower lobe atelectasis/effusion which was further investigated by an ultrasound of the chest yesterday that showed no sizable effusion on the left that warrants thoracentesis. As such, no intervention was done in the left lung. The patient is using incentive spirometer. He is utilizing a low-fat diet. No fever. No chills. Substance emphysema has improved considerably. We'll monitoring this patient along with the Objective - Vital Signs Vital signs: Vital Signs Temp 97.7 F 01/07/21 08:10 Pulse 66 01/07/21 08:37 Resp 18 01/07/21 08:10 BP 113/70 01/07/21 08:10 Pulse Ox 97 01/07/21 08:10 Intake & Output 01/06/21 01/07/21 01/07/21 18:59 06:59 18:59 Intake Total 256 20 236 Output Total 200 130 Balance 56 -110 236 Weight 91.3 kg Intake: IV 20 20 Invasive Line 5 20 20 Oral 236 236 Output: Chest Tube Drainage 200 130 Chest Tube Right 200 130 Other: Voiding Method Toilet Toilet # Voids 2 2 - Exam No acute distress, oriented 3. Currently on room air. HEENT examination is grossly unremarkable. Mucous membranes are moist. No oral lesions. Neck supple. Full range of motion. No adenopathy thyromegaly or neck vein distention. Cardiovascular examination reveals regular rhythm rate. S1-S2 normal. No S3 or S4. No discernible murmur noted. Heart sounds are distant. Lungs reveal diminished bilateral breath sounds. There is bronchial breath on the left lung base along with dullness to percussion consistent with pleural effusion. The patient also has appearance emphysema extending along the right side of the chest. Right-sided chest tube is in place. There is no evidence of any air leak. There is output in order of 100 mL of bronchitis splitting of the past 24 hours. Abdomen soft bowel sounds are heard. No masses or tenderness. Extremities are intact. No cyanosis clubbing or edema. Skin reveals subcutaneous emphysema over the chest and neck areas. Neurologic examination is brief but nonfocal. - Labs CBC & Chem 7: 01/07/21 07:41 01/07/21 07:41 Labs: Abnormal Lab Results - Last 24 Hours (Table) 01/07/21/02/24 Range/Units 07:41 07:41 MCV 103.4 H (80.0-100.0) fL Sodium 134 L (137-145) mmol/L Chloride 97 L (98-107) mmol/L Carbon Dioxide 31 H (22-30) mmol/L Glucose 127 H (74-99) mg/dL AST 69 H (17-59) U/L ALT 96 H (4-49) U/L Total Protein 5.9 L (6.3-8.2) g/dL Albumin 3.3 L (3.5-5.0) g/dL Assessment and Plan Plan: 1 Postop day #7, status post robotically assisted thoracoscopic thymectomy, for primary thymoma. Patient has a right-sided chest tube and the chest tube is in a good location. He has developed this right-sided pleural effusion probably related to thoracic duct injury and output has dropped as the patient's dietary changes have been implemented. Meanwhile, the patient has also developed some subcutaneous emphysema which is also improving. From the right-sided chest tube was dropped down to 100 mL over the past 24 hours and there is no evidence of air leak and subcutaneous emphysema is recovered. Ultrasound of the chest shows no signs of effusion on the left. 2 Postoperative subcutaneous emphysema and pneumomediastinum. 3 History of asthma, currently maintained on Wixela and Proventil, stable. 4 History of insomnia. 5 History of cholecystectomy. 6 History of hayfever. Plan: No fat diet Keep the chest tube to low continuous wall suction and monitor the output Continue using incentive spirometer Continue Symbicort Daily chest x-rays. We'll continue to follow. Patient is on room air oxygen subcutaneous emphysema over both chest areas and the neck area is also improving. Would suggest monitoring the output for another 24 hours and possibly taking the tube out if the output drops less than 50 mL over 24 hour period. He is using incentive spirometer. Is in good spirits. He is improving. No new complaints for now. Ultrasound the chest shows no sizable effusion.
--- NOTE | 2021-01-07 11:03 | P.PN ---
Subjective Progress Note Date: 01/07/21 Principal diagnosis: Thymic mass. Past medical history significant for recent Covid infection in October 2020, asthma, previous tobacco dependence, hypertension, hyperlipidemia, and family history of cancer. POD #6 robotic-assisted right thoracoscopic total thymectomy. Possible postoperative chylothorax, an unexpected the potential outcome of surgery. The patient was seen in follow-up today 01/07/2021 at his bedside on the cardiac stepdown unit. Currently he is laying in bed, awake, alert and oriented 3 and is in no acute apparent distress. Denies any complaints of pain or shortness of breath at this time. He states that the Toradol has been helping his pain. Ri ght pleural chest tube remains in place to low continuous wall suction -20 cm H2O. No air leak is present. Draining thin serosanguineous milky-colored drainage with 120 mL output in the last 24 hours. Oxygen saturations are 94% on room air and he is achieving [phone] L on his incentive spirometry. He reports he has been ambulating in the stepdown unit hallway several times per day. He was scheduled for a left pigtail catheter placement yesterday by interventional radiology, although once there was no sizable effusion on the left that warranted a thoracentesis or pigtail catheter placement. He remains afebrile the last 24 hours. Remote telemetry showing normal sinus rhythm heart rate 60 BPM. Objective - Vital Signs Vital signs: Vital Signs Temp 97.7 F 01/07/21 08:10 Pulse 66 01/07/21 08:37 Resp 18 01/07/21 08:10 BP 113/70 01/07/21 08:10 Pulse Ox 97 01/07/21 08:10 Intake & Output 01/06/21 01/07/21 01/07/21 18:59 06:59 18:59 Intake Total 256 20 236 Output Total 200 130 Balance 56 -110 236 Weight 91.3 kg Intake: IV 20 20 Invasive Line 5 20 20 Oral 236 236 Output: Chest Tube Drainage 200 130 Chest Tube Right 200 130 Other: Voiding Method Toilet Toilet # Voids 2 2 - Constitutional General appearance: Present: average body habitus, cooperative, no acute distress - EENT Eyes: Present: dentition normal, normal appearance. Absent: scleral icterus ENT: Present: hearing grossly normal - Neck Details: Neck is supple, no JVD. Neck: Absent: lymphadenopathy - Respiratory Details: Lung sounds essentially clear throughout. No wheezes, rhonchi or crackles. Respirations are symmetrical and nonlabored. Oxygen saturation 94% on room air. Achieving 1850 mL to 2000 mL on his incentive spirometry. Right pleural chest tube remains in place to low continuous wall suction -20 cm H2O. No air leak is present. Draining thin serosanguineous milky-colored drainage with 120 mL output in the last 24 hours. - Cardiovascular Details: Regular rhythm and rate. S1 and S2 present, negative for S3, gallop or murmur. No edema present. Knee-high CAROLYN hose in place to his bilateral lower extremities. - Gastrointestinal Gastrointestinal Comment(s): Abdomen is soft, nontender and nondistended. Active bowel sounds present in all 4 abdominal quadrants. No guarding or rigidity. No organomegaly appreciated. Tolerating oral intake. - Genitourinary Genitourinary Comment(s): Continues to void. - Integumentary Integumentary Comment(s): Skin is warm and dry. No clubbing or cyanosis is present. Right lateral chest incisions clean, dry and intact. Dressings clean and dry. - Neurologic Neurologic: Present: CNII-XII intact. Absent: focal deficits - Musculoskeletal Musculoskeletal: Present: gait normal, strength equal bilaterally - Psychiatric Psychiatric: Present: A&O x's 3, appropriate affect, intact judgment & insight - Allied health notes Allied health notes reviewed: nursing - Labs CBC & Chem 7: 01/07/21 07:41 01/07/21 07:41 Labs: Abnormal Lab Results - Last 24 Hours (Table) 01/07/21 01/07/21 Range/Units 07:41 07:41 MCV 103.4 H (80.0-100.0) fL Sodium 134 L (137-145) mmol/L Chloride 97 L (98-107) mmol/L Carbon Dioxide 31 H (22-30) mmol/L Glucose 127 H (74-99) mg/dL AST 69 H (17-59) U/L ALT 96 H (4-49) U/L Total Protein 5.9 L (6.3-8.2) g/dL Albumin 3.3 L (3.5-5.0) g/dL - Imaging and Cardiology Chest x-ray: report reviewed, image reviewed Assessment and Plan Assessment: 1. Thymic mass, status post robotic-assisted right thoracoscopic total thymecto my 2. Postoperative subcutaneous emphysema and pneumomediastinum 3. History of recent Covid infection in October 2020 4. Asthma 5. Previous tobacco dependence 6. Hypertension 7. Hyperlipidemia, cholesterol 237, LDL 142 8. Family history of cancer 9. Probable postoperative chylothorax, unexpected Plan: 1. Continue chest tube to low continuous wall suction -20 cm H2O. May disconnect from suction to ambulate in the hallway and bathroom. Pleural triglyceride results remain pending. 2. Continue to monitor daily chest x-rays. 2. Continue No fat, medium-chain triglyceride diet, continue to monitor for chylothorax resolution. Drainage is slowly decreasing, 120 mL output in the last 24 hours. 3. Increase activity, ambulate as tolerated. Patient should be out of bed for all meals. 4. Encourage is and spirometry 10 times every hour while awake. Bronchod ilators management per pulmonology/critical care medicine. 5. GI/DVT prophylaxis. 6. Pain controlled current when necessary medication regimen. Continue Toradol 50 mg IV every 6 hours. 7. Medical management of other comorbidities per Dr. Artis. 8. Final pathology results pending per [facility] addendum. 9. Encourage use of his incentive spirometry 10 times every hour while awake. 10. Continue Sandostatin to 200 mg subcutaneous 3 times a day. 11. More recommendations to follow based on patient's clinical course. Time with Patient: Greater than 30
--- NOTE | 2021-01-07 13:36 | P.PN ---
Subjective Progress Note Date: 01/07/21 This is a 55-year-old male patient of [facility] with past medical history of hypertension, mild intermittent asthma, history of COVID-19 infection October 2020, remote history of tobacco use, regular alcohol use, patient was treated for Covid 19 infection back in October 2020 was transferred from [facility] at that time he underwent computed tomography scan of the chest with contrast to rule out any pulmonary embolism it did show a mediastinal mass about 2.5 cm for which she was seen in consultation by Dr. Shay, he was recommended at that time to follow-up with him as an outpatient after the Covid infection is cleared patient came to the office and he was sent to see the switchboard installer where he had intact scan was ordered by him and that showed no uptake initially was decided the patient does have a mediastinal mass suggestive of possible primary thymoma, he was referred to Dr. Stevens for robotic-assisted thymectomy that was done yesterday were asked to see the p atient for medical management. Patient is laying down in bed in no apparent distress at this time he is complaining of some pain at the site where his chest tube is he does appear to be a bit anxious, he has oxygen, he was instructed to use the incentive spirometer, he does not appear to be in acute respiratory distress. Hopefully the Chest tube will come out tomorrow morning and he would be able to be discharged home in the next 1 or 2 days. 01/01: Patient is postop day #1 seen on the cardiac stepdown unit. Pathology report is pending. Repeat chest x-ray is stable findings. A chest tube remains in place which is quite painful -06/15. He is having difficulty with deep breathing secondary to the pain. He is only reaching 500 mL on incentive spirometry. He has been afebrile, heart rate 75, blood pressure 114/76, pulse ox 95% on 3 L nasal cannula. Repeat blood work reveals WBC of 10, hemoglobin 15.4. Sodium 132, potassium 4.1, creatinine 0.82. Blood sugar 125. Total bilirubin 0.8, AST 66, ALT 87, alkaline phosphatase 44. Plan is to increase activity, keep the chest tubes for another day. 01/04: The weekend, patient was followed by [facility] hospitalist. Patient states that he continues to have chest discomfort and tightness in his chest. He is using incentive spirometry and reaching 1800 mL. Patient's also states that he has been ambulating in the hallway. She and and his are inquiring whether he should be transferred to another facility. At this time was discussed the patient will continue current treatment for the next 24 hours and then make determination at that time. He has a chest tube on the right pleural cavity that is attached to low int ermittent suction. No air leak. Pleural fluid is being analyzed for triglycerides to rule out chylous pleural effusion. The chest x-ray reveals persistent subcutaneous emphysema. Small to moderate left pleural effusion and left-sided volume loss we demonstrated. No obvious pneumothorax with right- sided chest tube we demonstrated. No significant change. Ultrasound of the chest ordered and reveals left pleural effusion on 3.1 cm. She has been afebrile, heart rate in the 60s, blood pressure 108/70, pulse ox 94% on room air. CBC is unremarkable. Sodium 130, creatinine 0.86. AST 73, ALT 73, alkaline phosphatase 50. 01/05: Patient has been afebrile, heart rate 71, blood pressure 120/79, pulse ox 96% on room air. Urinalysis was negative for infection. Repeat chest x-ray reveals suspected trace 6 mm left apical pneumothorax. Right-sided chest tube. Continued moderate left effusion with adjacent atelectasis and/or consolidation. Subcutaneous emphysema right greater than left is improving. Triglyceride report from pleural fluid is pending. Pathology report remains pending. 01/06: Right sided chest tube remains in place with plan to remove tomorrow. He states pain right-side of chest was very severe this morning and was having trouble moving around and taking a deep breath but improved at the time of evaluation. Drainage is decreased but still milky consistency but minimal d rainage. He is seen today resting on the couch. He appears to be in no acute respiratory distress. Patient underwent US left side that showed no fluid and pigtail cath was canceled. Patient has been afebrile, HR 69, BP 113/71, PO 96% on RA. 01/07: She denies any new complaints. He states he is feeling well. He continues to have the right-sided chest tube in place. Chest x-ray shows minimal effusion on the right, minimal pneumothorax in the right apex. Left lower lobe atelectasis effusion. Patient has been following a low-fat diet. Incentive spirometry as 1700 ML's. Thymic mass pathology is negative for malignancy and sent to [facility]. Anticipate discharge home possibly today but waiting for cardiothoracic surgery decision. Patient is afebrile, heart rate 67, blood pressure 113/70, pulse ox 97% on room air. WBC 8.1, hemoglobin 16, platelet count 337. Sodium 134, potassium 5, chloride 97, CO2 31, BUN 20 and creatinine 0.9. Total bilirubin 0.8, AST 69, ALT 96, alkaline phosphatase 47. Objective - Vital Signs Vital signs: Vital Signs Temp 98.4 F 01/07/21 05:10 Pulse 75 01/07/21 05:10 Resp 16 01/07/21 05:10 BP 113/75 01/07/21 05:10 Pulse Ox 94 L 01/07/21 05:10 Intake & Output 01/06/21 01/07/21 01/07/21 18:59 06:59 18:59 Intake Total 256 20 Output Total 200 130 Balance 56 -110 Weight 91.3 kg Intake: IV 20 20 Invasive Line 5 20 20 Oral 236 Output: Chest Tube Drainage 200 130 Chest Tube Right 200 130 Other: Voiding Method Toilet Toilet # Voids 2 2 - Exam Review of Systems Constitutional: Denies anorexia, Denies chronic headaches, Denies lethargy, Denies weakness, Denies weight gain Eyes: denies blurred vision, denies bulging eye, denies decreased vision Ears: deny: decreased hearing Ears, nose, mouth and throat: Denies dysphagia, Denies neck lump, Denies sore throat Cardiovascular: Reports right sided chest pain, Denies decreased exercise tolerance, Denies dyspnea on exertion, Denies lightheadedness, Denies rapid heart beat, Denies shortness of breath, Denies syncope Respiratory: Denies congestion, Denies cough, Denies cough with sputum, Denies home oxygen, Denies sleep apnea, Denies snoring, Denies wheezing Gastrointestinal: Denies abdominal pain, Denies bloating, Denies BRBPR, Denies early satiety, Denies loss of appetite, Denies melena, Denies nausea, Denies vomiting Genitourinary: Denies dysuria, Denies nocturia Musculoskeletal: Denies atrophy, Denies gait dysfunction, Denies low back pain Musculoskeletal: absent: ankle pain, ankle stiffness, ankle swelling, elbow pain , elbow stiffness, elbow swelling, foot pain, foot stiffness, foot swelling, hand pain, hand stiffness, hand swelling, hip pain, hip stiffness, hip swelling, knee pain, knee stiffness, knee swelling, shoulder pain, shoulder stiffness, shoulder swelling, wrist pain, wrist stiffness, wrist swelling Integumentary: Denies pruritus, Denies rash Neurological: Denies numbness, Denies weakness Psychiatric: Reports anxiety, Denies depression, Denies sadness/tearfulness, Denies sleep disturbances, Denies suicidal ideation Endocrine: Denies fatigue, Denies weight change Physical examination: HEENT: Head is atraumatic, normocephalic, pupils were equal round reactive to light and accommodation, extraocular muscle movement intact, mucous membranes of the mouth are somewhat dry. Neck: Supple, no JVD, no carotid bruit. Chest: Decreased breath sounds at bases few rhonchi no expiratory wheezes, minim al chest wall tenderness, no intercostal retractions. Subcutaneous emphysema resolving. Right-sided chest tube with milky white drainage-minimal output. Heart: First heart sound is depressed, second heart sounds normal, there is no gallop or murmur. Abdomen: Soft, minimal nonspecific tenderness no rebound or guarding positive bowel sounds Extremities: No pedal edema, dorsalis pedis +2 bilaterally, there is no calf tenderness. Neurologic examination: Patient is awake alert and oriented and Ox3, cranial nerves 2-12 are grossly intact, muscle power 5 out of 5 in upper and lower extremities bilaterally, deep tendon reflexes were normal. - Labs CBC & Chem 7: 01/07/21 07:41 01/07/21 07:41 Labs: Abnormal Lab Results - Last 24 Hours (Table) 01/06/21 01/06/21 Range/Units 06:54 06:54 MCV 100.5 H (80.0-100.0) fL Lymphocytes # 0.9 L (1.0-4.8) k/uL Sodium 133 L (137-145) mmol/L Glucose 115 H (74-99) mg/dL AST 78 H (17-59) U/L ALT 103 H (4-49) U/L Total Protein 5.8 L (6.3-8.2) g/dL Albumin 3.2 L (3.5-5.0) g/dL Assessment and Plan Plan: 1. Post operative day #6 status post robotic-assisted thymectomy. Patient was instructed to continue the use of incentive spirometery to reduce the incidence of atelectasis and healthcare associated pneumonia, continue current oxygen support, continue current pain management as outlined by thoracic surgery, continue activity . Chest ultrasound as above. Pathology report negative for malignancy. Triglycerides level on pleural fluid pending. Patient started on Sandostatin 200 g subcu every 8 hours. Continue Low fat diet. 2. Primary thymoma discovered on computed tomography scan of the chest followed by a PET scan as an outpatient. 3. Prior history of COVID-19 back in October 2020. Recovered fully 4. Hypertension and hypertensive cardio vascular disease. Continue metoprolol ER 25 mg orally once every day. 5. Hyperlipidemia. Continue patient on low-cholesterol diet. 6. Mild persistent asthma. Continue patient on DuoNeb 3 mL nebulization every 6 hours, we will continue oxygen support, we'll continue with Symbicort 80/4.5 g 2 puffs inhalation twice every day. 7. Anxiety disorder. Continue patient on Xanax 0.5 mg orally once every day as needed. 8. Pain management. Continue with tramadol 50 mg orally every 6 hours as needed along with Tylenol in between. 9. DVT prophylaxis. Early ambulation, continue with the heparin 5000 units subcutaneously every 8 hours. 10. GI prophylaxis. Continue Protonix 40 mg orally once every day. 11. Left-sided pleural effusion, resolved. Discharge plan: Return home within the 24 hours. Impression and plan of care have been directed as dictated by the signing physician. Sanjuanita Cotton nurse practitioner acting as scribe for signing physician.
[2021-01-07] MEDS: METOPROLOL SUCCINATE (ER) 25 MG TAB.ER.24H PO SCH (17:18)
[2021-01-07] MEDS: ALPRAZolam 0.5 MG TAB PO PRN (21:33)
[2021-01-08] MEDS: KETOROLAC 15 MG/ML 1 ML VIAL IVP SCH ×4 (03:15→21:00)
[2021-01-08] MEDS: PANTOPRAZOLE 40 MG TABLET PO SCH (06:38)
[2021-01-08] MEDS: HYDROcodone/APAP 7.5-325MG 1 EACH TAB PO PRN (06:38)
[2021-01-08] MEDS: SYMBICORT 80-4.5 MCG INHALER INHALATION SCH ×2 (08:47→19:32)
[2021-01-08] MEDS: IPRATROPIUM-ALBUTEROL 3 ML NEB IH SCH ×4 (08:47→19:32)
--- NOTE | 2021-01-08 08:48 | P.PN ---
Subjective Progress Note Date: 01/08/21 This is a 55-year-old male patient of [facility] with past medical history of hypertension, mild intermittent asthma, history of COVID-19 infection October 2020, remote history of tobacco use, regular alcohol use, patient was treated for Covid 19 infection back in October 2020 was transferred from [facility] at that time he underwent computed tomography scan of the chest with contrast to rule out any pulmonary embolism it did show a mediastinal mass about 2.5 cm for which she was seen in consultation by Dr. Shay, he was recommended at that time to follow-up with him as an outpatient after the Covid infection is cleared patient came to the office and he was sent to see the electrical unit rebuilder where he had intact scan was ordered by him and that showed no uptake initially was decided the patient does have a mediastinal mass suggestive of possible primary thymoma, he was referred to Dr. Stevens for robotic-assisted thymectomy that was done yesterday were asked to see the p atient for medical management. Patient is laying down in bed in no apparent distress at this time he is complaining of some pain at the site where his chest tube is he does appear to be a bit anxious, he has oxygen, he was instructed to use the incentive spirometer, he does not appear to be in acute respiratory distress. Hopefully the Chest tube will come out tomorrow morning and he would be able to be discharged home in the next 1 or 2 days. 01/01: Patient is postop day #1 seen on the cardiac stepdown unit. Pathology report is pending. Repeat chest x-ray is stable findings. A chest tube remains in place which is quite painful -06/15. He is having difficulty with deep breathing secondary to the pain. He is only reaching 500 mL on incentive spirometry. He has been afebrile, heart rate 75, blood pressure 114/76, pulse ox 95% on 3 L nasal cannula. Repeat blood work reveals WBC of 10, hemoglobin 15.4. Sodium 132, potassium 4.1, creatinine 0.82. Blood sugar 125. Total bilirubin 0.8, AST 66, ALT 87, alkaline phosphatase 44. Plan is to increase activity, keep the chest tubes for another day. 01/04: The weekend, patient was followed by [facility] hospitalist. Patient states that he continues to have chest discomfort and tightness in his chest. He is using incentive spirometry and reaching 1800 mL. Patient's also states that he has been ambulating in the hallway. She and and his are inquiring whether he should be transferred to another facility. At this time was discussed the patient will continue current treatment for the next 24 hours and then make determination at that time. He has a chest tube on the right pleural cavity that is attached to low int ermittent suction. No air leak. Pleural fluid is being analyzed for triglycerides to rule out chylous pleural effusion. The chest x-ray reveals persistent subcutaneous emphysema. Small to moderate left pleural effusion and left-sided volume loss we demonstrated. No obvious pneumothorax with right- sided chest tube we demonstrated. No significant change. Ultrasound of the chest ordered and reveals left pleural effusion on 3.1 cm. She has been afebrile, heart rate in the 60s, blood pressure 108/70, pulse ox 94% on room air. CBC is unremarkable. Sodium 130, creatinine 0.86. AST 73, ALT 73, alkaline phosphatase 50. 01/05: Patient has been afebrile, heart rate 71, blood pressure 120/79, pulse ox 96% on room air. Urinalysis was negative for infection. Repeat chest x-ray reveals suspected trace 6 mm left apical pneumothorax. Right-sided chest tube. Continued moderate left effusion with adjacent atelectasis and/or consolidation. Subcutaneous emphysema right greater than left is improving. Triglyceride report from pleural fluid is pending. Pathology report remains pending. 01/06: Right sided chest tube remains in place with plan to remove tomorrow. He states pain right-side of chest was very severe this morning and was having trouble moving around and taking a deep breath but improved at the time of evaluation. Drainage is decreased but still milky consistency but minimal d rainage. He is seen today resting on the couch. He appears to be in no acute respiratory distress. Patient underwent US left side that showed no fluid and pigtail cath was canceled. Patient has been afebrile, HR 69, BP 113/71, PO 96% on RA. 01/07: Patient denies any new complaints. He states he is feeling well. He continues to have the right-sided chest tube in place. Chest x-ray shows minimal effusion on the right, minimal pneumothorax in the right apex. Left lower lobe atelectasis effusion. Patient has been following a low-fat diet. Incentive spirometry as 1700 ML's. Thymic mass pathology is negative for malignancy and sent to [facility]. Anticipate discharge home possib ly today but waiting for cardiothoracic surgery decision. Patient is afebrile, heart rate 67, blood pressure 113/70, pulse ox 97% on room air. WBC 8.1, hemoglobin 16, platelet count 337. Sodium 134, potassium 5, chloride 97, CO2 31, BUN 20 and creatinine 0.9. Total bilirubin 0.8, AST 69, ALT 96, alkaline phosphatase 47. 3/5: Patient has been afebrile, heart rate 65, blood pressure 118/75, pulse ox 96% on room air. panel monitor sinus rhythm. Repeat chest x-ray port is pending. He continues to have right sided chest tube. He states he is eating well. Pain is controlled. His last bowel movement was yesterday. Patient is reaching 2000 ML's on incentive spirometry. He is hoping to go home today. He does have a trip planned for on Monday. Objective - Vital Signs Vital signs: Vital Signs Temp 98.2 F 01/08/21 04:10 Pulse 65 01/08/21 04:10 Resp 17 01/08/21 04:10 BP 118/75 01/08/21 04:10 Pulse Ox 96 01/08/21 04:10 Intake & Output 01/07/21 01/08/21 01/08/21 18:59 06:59 18:59 Intake Total 714 20 Output Total 30 30 Balance 684 -10 Weight 91.2 kg Intake: IV 20 20 Invasive Line 5 20 20 Oral 694 Output: Chest Tube Drainage 30 30 Chest Tube Right 30 30 Other: Voiding Method Toilet Toilet # Voids 2 2 - Exam Review of Systems Constitutional: Denies anorexia, Denies chronic headaches, Denies lethargy, Denies weakness, Denies weight gain Eyes: denies blurred vision, denies bulging eye, denies decreased vision Ears: deny: decreased hearing Ears, nose, mouth and throat: Denies dysphagia, Denies neck lump, Denies sore throat Cardiovascular: Reports mild right sided chest pain, Denies decreased exercise tolerance, Denies dyspnea on exertion, Denies lightheadedness, Denies rapid heart beat, Denies shortness of breath, Denies syncope Respiratory: Denies congestion, Denies cough, Denies cough with sputum, Denies h ome oxygen, Denies sleep apnea, Denies snoring, Denies wheezing Gastrointestinal: Denies abdominal pain, Denies bloating, Denies BRBPR, Denies early satiety, Denies loss of appetite, Denies melena, Denies nausea, Denies vomiting Genitourinary: Denies dysuria, Denies nocturia Musculoskeletal: Denies atrophy, Denies gait dysfunction, Denies low back pain Musculoskeletal: absent: ankle pain, ankle stiffness, ankle swelling, elbow pain, elbow stiffness, elbow swelling, foot pain, foot stiffness, foot swelling, hand pain, hand stiffness, hand swelling, hip pain, hip stiffness, hip swelling, knee pain, knee stiffness, knee swelling, shoulder pain, shoulder stiffness, shoulder swelling, wrist pain, wrist stiffness, wrist swelling Integumentary: Denies pruritus, Denies rash Neurological: Denies numbness, Denies weakness Psychiatric: Reports anxiety, Denies depression, Denies sadness/tearfulness, Denies sleep disturbances, Denies suicidal ideation Endocrine: Denies fatigue, Denies weight change Physical examination: HEENT: Head is atraumatic, normocephalic, pupils were equal round reactive to light and accommodation, extraocular muscle movement intact. Neck: Supple, no JVD, no carotid bruit. Chest: Decreased breath sounds at bases few rhonchi no expiratory wheezes, minimal chest wall tenderness, no intercostal retractions. Subcutaneous emphysema resolving. Right-sided chest tube with milky white drainage-minimal output. Heart: First heart sound is depressed, second heart sounds normal, there is no gallop or murmur. Abdomen: Soft, minimal nonspecific tenderness no rebound or guarding positive bowel sounds Extremities: No pedal edema, dorsalis pedis +2 bilaterally, there is no calf tenderness. Neurologic examination: Patient is awake alert and oriented and Ox3, cranial nerves 2-12 are grossly intact, muscle power 5 out of 5 in upper and lower extremities bilaterally, deep tendon reflexes were normal. - Labs CBC & Chem 7: 01/07/21 07:41 01/07/21 07:41 Labs: Abnormal Lab Results - Last 24 Hours (Table) 01/07/21 01/07/21 Range/Units 07:41 07:41 MCV 103.4 H (80.0-100.0) fL Sodium 134 L (137-145) mmol/L Chloride 97 L (98-107) mmol/L Carbon Dioxide 31 H (22-30) mmol/L Glucose 127 H (74-99) mg/dL AST 69 H (17-59) U/L ALT 96 H (4-49) U/L Total Protein 5.9 L (6.3-8.2) g/dL Albumin 3.3 L (3.5-5.0) g/dL Assessment and Plan Plan: 1. Post operative day #6 status post robotic-assisted thymectomy. Patient was instructed to continue the use of incentive spirometery to reduce the incidence of atelectasis and healthcare associated pneumonia, continue current oxygen support, continue current pain management as outlined by thoracic surgery, continue activity. Chest ultrasound as above. Pathology report negative for malignancy. Continue Sandostatin 200 g subcu every 8 hours. Continue Low fat diet. 2. Primary thymoma discovered on computed tomography scan of the chest followed by a PET scan as an outpatient. 3. Prior history of COVID-19 back in October 2020. Recovered fully 4. Hypertension and hypertensive cardio vascular disease. Continue metoprolol ER 25 mg orally once every day. 5. Hyperlipidemia. Continue patient on low-cholesterol diet. 6. Mild persistent asthma. Continue patient on DuoNeb 3 mL nebulization every 6 hours, we will continue oxygen support, we'll continue with Symbicort 80/4.5 g 2 puffs inhalation twice every day. 7. Anxiety disorder. Continue patient on Xanax 0.5 mg orally once every day as needed. 8. Pain management. Continue with tramadol 50 mg orally every 6 hours as needed along with Tylenol in between. 9. DVT prophylaxis. Early ambulation, continue with the heparin 5000 units subcutaneously every 8 hours. 10. GI prophylaxis. Continue Protonix 40 mg orally once every day. 11. Left-sided pleural effusion, resolved. Discharge plan: Return home. Impression and plan of care have been directed as dictated by the signing physician. Sanjuanita Cotton nurse practitioner acting as scribe for signing physician.
[2021-01-08] MEDS: MULTIVITAMINS, THERA 1 EACH TAB PO SCH (08:49)
[2021-01-08] MEDS: ENOXAPARIN 40 MG/0.4 ML SYRINGE SQ SCH (08:49)
[2021-01-08] MEDS: OCTREOTIDE 100 MCG/ML INJ SQ SCH ×2 (08:51→16:44)
[2021-01-08 08:53] LABS: ALT 116 U/L (4-49); AST 90 U/L (17-59); African American GFR (CKD) >90 (>60 ml/min/1.73 sqM); Albumin 3.8 g/dL (3.5-5.0); Alkaline Phosphatase 58 U/L (38-126); Anion Gap 3 mmol/L; Blood Urea Nitrogen 19 mg/dL (9-20); Calcium 9.4 mg/dL (8.4-10.2); Carbon Dioxide 35 mmol/L (22-30); Chloride 98 mmol/L (98-107); Glucose 92 mg/dL (74-99); Non-African American GFR(CKD) 81 (>60 ml/min/1.73 sqM); Potassium 4.9 mmol/L (3.5-5.1); Sodium 136 mmol/L (137-145); Total Bilirubin 0.7 mg/dL (0.2-1.3); Total Protein 6.5 g/dL (6.3-8.2)
--- NOTE | 2021-01-08 09:30 | XR ---
EXAMINATION TYPE: XR chest 2V DATE OF EXAM: 01/08/2021 COMPARISON: Chest x-ray 01/07/2021 HISTORY: Postop thymectomy TECHNIQUE: Frontal and lateral views of the chest are obtained. FINDINGS: No evident pneumothorax. Right-sided chest tube remains in place. Basilar density excuse l eft hemidiaphragm. Difficult to exclude effusion. Patient is rotated. Left hemidiaphragm is elevated. Cardiac mediastinal silhouette is similar to prior exam. IMPRESSION: Elevated left hemidiaphragm, probable associated basilar atelectasis, consider diaphragm atic paralysis, effusion not excluded.
--- NOTE | 2021-01-08 10:18 | P.PN ---
Subjective Progress Note Date: 01/08/21 This is a 55-year-old male, postop day #1, status post ectomy, for a thymoma. The patient mass was discovered initially at [facility], back in early September. Currently, the patient's doing reasonably well, although he is complaining of pain. In addition, he still has a chest tube in. He had a robotically assisted thymectomy. The surgery was done by Dr. Stevens. Currently, the patient's off oxygen. On room air, saturations are 95%. The mass measured 2 x 2.5 cm. In the PET scan of the mass was essentially negative. The final pathology report is not yet back, but likely this is a benign thymoma. Most are. The patient's major complaint includes pain on deep inspiration. We'll encourage deep breathing coughing clearing secretions, and hourly use of incentive spirometer. White count is 10.0, hemoglobin 15.4, hematocrit 46.4, and platelet count 229,000. Sodium 132, potassium 4.1, chlorides 98, CO2 28, anion gap 6, BUN 16, and creatinine 0.82. Progress note dated 01/02/2021. 55-year-old male, postop day #2, status post thymectomy, for a thymoma. The patient had a robotically assisted thoracoscopic thymectomy. Currently, the right-sided chest tube is still in place. Unfortunately, he's developed some subcutaneous emphysema. The patient's also having drainage from the chest tube. The surgery was done by Dr. Stevens. He'll end up seeing one of the other thoracic surgeons today. He has been weaned off of oxygen therapy. White count is 9, hemoglobin 16.6, hematocrit 51.7, and platelet count 262,000. Sodium 135, potassium 4.5, chloride 99, CO2 29, anion gap 7, BUN 27, and creatinine 0.99. Pathology report is currently still pending. There was not a significant leak from the chest tube on the right. The chest x-ray showed worsening subcutaneous emphysema and pneumomediastinum, but moderate sized left rated the right pleural effusion. There is no pneumothorax noted. Progress note dated 01/03/2021. 55-year-old male, postop day #3, status post robotically assisted thymectomy, for thymoma. The patient's right-sided chest tube is still in place, the patient still having evidence of subcutaneous emphysema. He has been seen by thoracic early this morning. White count is 7.7, hemoglobin 16.5, hematocrit 48.1, and platelet count 255,000. Sodium 134, potassium 4.1, chlorides 100, CO2 27, anion gap 7, BUN 24, and creatinine 0.88. Chest x-ray shows persistent subcutaneous emphysema, with a small left-sided pleural effusion. Clinically, he is feeling a bit better. On 01/04/2021, the patient is postop day #4 following his robotic-assisted thy mectomy for thymoma. He still has a chest tube on the right pleural cavity and output from the right-sided chest tube has been 6 20 mL over the past 24 hours. His chest x-ray from today shows a small left-sided pleural effusion along with some atelectatic changes in the left lung base. The gastric bubble is sitting higher and there is evidence of subcutaneous emphysema along the right lateral c hest wall. Ultrasound of the chest was also done and the findings are consistent with a small left-sided pleural effusion measuring 3.1 cm in size. The patient is currently on room air oxygen. The patient has a renal function is stable with a creatinine of 0.8. Sodium is at 1:30. Rest of the blood work including hemoglobin is at 15.4 and a white cell count is at 7.3. No other significant events otherwise for now. The chest she will was attached to low intermittent suction and fluid analysis was sent for triglycerides rule out the possibility of chylothorax. On 01/05/2021, the patient is postop day #5. Patient is doing well. Amount of subcutaneous emphysema is less than today's evaluation. Output from the chest tube is also less than over the past 8 hours the patient has put out only 90 mL of milky white material which probably is colitis. The triglyceride level from the pleural fluid is still pending for now. Meanwhile the patient is on low-fat diet for now. The cath on his chest is also improved. Chest x-ray from today shows a very questionable tiny left apical pneumothorax. The right lung is well expanded. The patient has a right-sided chest tube in place. No evidence of any air leak. No chest pain. No fever. No chills. No night sweats. No other significant events overnight. His blood work from yesterday shows no significant abnormalities. No fractures which chest pain. The thymus pathology is not back yet. On 01/06/2021, the patient is postop day #6. In terms of his operative from the right-sided chest tube, the output has been decreasing and the patient is producing only 200 mL of chylous material from the right lung. Meanwhile, there is still a pleural effusion on the left which is small and patient will have an interventional radiology guided drainage of the left-sided pleural effusion. No significant substance emphysema. The patient is on room air oxygen. No fever or chills. No evidence of any air leak from the chest tube. No other significant events otherwise. His diet has been changed and the patient is fatty diet. No chest pain. No altered mentation. No fever or chills. avoiding all sorts of tests. 01/07/2021 the patient is postop day #7. Right-sided chest tube still in place. Output has been in the order of 100 mL over the past 24 hours. Repeat chest x- ray shows minimal effusion on the right, minimal pneumothorax in the right apex, there was a left lower lobe atelectasis/effusion which was further investigated by an ultrasound of the chest yesterday that showed no sizable effusion on the left that warrants thoracentesis. As such, no intervention was done in the left lung. The patient is using incentive spirometer. He is utilizing a low-fat diet. No fever. No chills. Substance emphysema has improved considerably. We'll monitoring this patient On 01/08/2021 the patient is postop day #8. Doing well. Output from the right- sided chest tube is minimal in the order of 50 mL over the past 24 hours. No evidence of any pneumothorax. No evidence of any air leak. It is very much likely that the right-sided chest tube will be removed today. Meanwhile, he has some atelectatic changes and small pleural effusion on the left on today's chest x-ray. No evidence of any subcutaneous emphysema. No evidence of any pneumothorax. He is on room air oxygen. He has no other complaints otherwise for now. Pathology on his thymus was sent to [facility]. This is likely of a benign nature. He is on DuoNeb nebulized treatments when necessary, he is on Lovenox for DVT prophylaxis 40 mg subcu every 24 hours and he is on [place] for pain control. Objective - Vital Signs Vital signs: Vital Signs Temp 97.6 F 01/08/21 08:00 Pulse 66 01/08/21 08:59 Resp 20 01/08/21 08:00 BP 118/74 01/08/21 08:00 Pulse Ox 97 01/08/21 08:00 Intake & Output 01/07/21 01/08/21 01/08/21 18:59 06:59 18:59 Intake Total 714 20 600 Output Total 30 30 Balance 684 -10 600 Weight 91.2 kg Intake: IV 20 20 Invasive Line 5 20 20 Oral 694 600 Output: Chest Tube Drainage 30 30 Chest Tube Right 30 30 Other: Voiding Method Toilet Toilet # Voids 2 2 2 - Exam No acute distress, oriented 3. Currently on room air. HEENT examination is grossly unremarkable. Mucous membranes are moist. No oral lesions. Neck supple. Full range of motion. No adenopathy thyromegaly or neck vein distention. Cardiovascular examination reveals regular rhythm rate. S1-S2 normal. No S3 or S4. No discernible murmur noted. Heart sounds are distant. Lungs reveal diminished bilateral breath sounds. Right-sided chest tube . The patient has no subcutaneous emphysema. Diminished breath on the lung bases bilaterally. His pulling up to 2000 on his incentive spirometer. Abdomen soft bowel sounds are heard. No masses or tenderness. Extremities are intact. No cyanosis clubbing or edema. Skin reveals subcutaneous emphysema over the chest and neck areas. Neurologic examination is brief but nonfocal. - Labs CBC & Chem 7: 01/07/21 07:41 01/08/21 06:46 Labs: Abnormal Lab Results - Last 24 Hours (Table) 01/08/21 Range/Units 06:46 Sodium 136 L (137-145) mmol/L Carbon Dioxide 35 H (22-30) mmol/L AST 90 H (17-59) U/L ALT 116 H (4-49) U/L Assessment and Plan Plan: 1 Postop day #8, status post robotically assisted thoracoscopic thymectomy, for primary thymoma. 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 The chest tube was removed today because of low output from the right hemithorax which was in the order of less than 50 mL an hour. Chest x-ray showed no evidence of any pneumothorax. The cath emphysema 2 Postoperative subcutaneous emphysema and pneumomediastinum. 3 History of asthma, currently maintained on Wixela and Proventil, stable. 4 History of insomnia. 5 History of cholecystectomy. 6 History of hayfever. Plan: No fat diet Chest tube removed Continue using incentive spirometer Continue Symbicort or Wixela outpatient Patient is on room air oxygen We'll continue to follow. Lead a chest x-ray on outpatient basis within the next week. Clear for discharge from a pulmonary standpoint.
--- NOTE | 2021-01-08 13:51 | P.PN ---
Subjective Progress Note Date: 01/08/21 Principal diagnosis: Thymic mass. Past medical history significant for recent Covid infection in October 2020, asthma, previous tobacco dependence, hypertension, hyperlipidemia, and family history of cancer. POD #7 robotic-assisted right thoracoscopic total thymectomy. Possible postoperative chylothorax, an unexpected the potential outcome of surgery. The patient was seen in follow-up today 01/08/2021 at his bedside on the cardiac stepdown unit. Currently he is laying in bed, awake, alert and oriented 3 and is in no acute apparent distress. Denies any complaints of pain or shortness of breath at this time. Right pleural chest tube remains in place to water seal. No air leak is present. Draining thin serous drainage with 50 mL output in the last 24 hours. Oxygen saturations are 95% on room air and he is achieving 2000 mL on his incentive spirometry. He reports he continues to ambulate in the cardiac stepdown unit hallway. He remains on a no fat diet. He's been afebrile the last 24 hours. Objective - Vital Signs Vital signs: Vital Signs Temp 98.5 F 01/08/21 12:00 Pulse 68 01/08/21 12:14 Resp 20 01/08/21 12:00 BP 124/78 01/08/21 12:00 Pulse Ox 95 01/08/21 12:00 Intake & Output 01/07/21 01/08/21 01/08/21 18:59 06:59 18:59 Intake Total 714 20 600 Output Total 30 30 Balance 684 -10 600 Weight 91.2 kg Intake: IV 20 20 Invasive Line 5 20 20 Oral 694 600 Output: Chest Tube Drainage 30 30 Chest Tube Right 30 30 Other: Voiding Method Toilet Toilet # Voids 2 2 2 - Constitutional General appearance: Present: average body habitus, cooperative, no acute distress - EENT Eyes: Present: normal appearance. Absent: scleral icterus ENT: Present: hearing grossly normal - Neck Details: Neck is supple, no JVD, no lymphadenopathy. - Respiratory Details: Lungs sounds essentially clear throughout, diminished to his bilateral bases. No wheezes, rhonchi or crackles. Respirations are symmetrical and nonlabored. Oxygen saturation are 95% on room air. Achieving 2001 L on his incentive spirometry. Right pleural chest tube in place to water seal. No air leak is present. Draining thin serous drainage with 50 mL output the last 24 hours. - Cardiovascular Details: Regular rhythm and rate. S1 and S2 present, negative for S3, gallop or murmur. Remote telemetry showing normal sinus rhythm heart rate 68 BPM. No edema present. Knee-high CAROLYN hose in place to his bilateral lower extremities. - Gastrointestinal Gastrointestinal Comment(s): Abdomen soft, nontender and nondistended. Active bowel sounds present in all 4 abdominal quadrants. No guarding or rigidity. No organomegaly appreciated. Tolerating oral intake. - Genitourinary Genitourinary Comment(s): Continues to void. - Integumentary Integumentary Comment(s): Skin is warm and dry. No clubbing or cyanosis is present. Right lateral chest incisions clean, dry and approximated. No drainage redness is present. - Neurologic Neurologic: Present: CNII-XII intact. Absent: focal deficits - Musculoskeletal Musculoskeletal: Present: gait normal, strength equal bilaterally - Psychiatric Psychiatric: Present: A&O x's 3, appropriate affect, intact judgment & insight - Allied health notes Allied health notes reviewed: nursing - Labs CBC & Chem 7: 01/07/21 07:41 01/08/21 06:46 Labs: Abnormal Lab Results - Last 24 Hours (Table) 01/08/21 Range/Units 06:46 Sodium 136 L (137-145) mmol/L Carbon Dioxide 35 H (22-30) mmol/L AST 90 H (17-59) U/L ALT 116 H (4-49) U/L - Imaging and Cardiology Chest x-ray: report reviewed, image reviewed Assessment and Plan Assessment: 1. Thymic mass, status post robotic-assisted right thoracoscopic total thymectomy 2. Postoperative subcutaneous emphysema and pneumomediastinum 3. History of recent Covid infection in October 2020 4. Asthma 5. Previous tobacco dependence 6. Hypertension 7. Hyperlipidemia, cholesterol 237, LDL 142 8. Family history of cancer 9. Probable postoperative chylothorax, unexpected Plan: 1. Right pleural chest tube removed without incident. Vaseline impregnated gauze to cover, 4 x 4 gauze to cover and secured with tape. 2. Continue to monitor daily chest x-rays. 2. Continue No fat, medium-chain triglyceride diet, continue to monitor for chylothorax resolution. Drainage is slowly decreasing, 50 mL output in the last 24 hours. 3. Increase activity, ambulate as tolerated. Patient should be out of bed for all meals. 4. Encourage is and spirometry 10 times every hour while awake. Bronchodilators management per pulmonology/critical care medicine. 5. GI/DVT prophylaxis. 6. Pain controlled current when necessary medication regimen. Continue Toradol 50 mg IV every 6 hours. Discontinue [place] 7. Medical management of other comorbidities per Dr. Artis. 8. Final pathology results pending per [facility] addendum. 9. Encourage use of his incentive spirometry 10 times every hour while awake. 10. Continue Sandostatin to 200 mg subcutaneous 3 times a day. 11. More recommendations to follow based on patient's clinical course. Time with Patient: Greater than 30
[2021-01-08] MEDS: METOPROLOL SUCCINATE (ER) 25 MG TAB.ER.24H PO SCH (17:29)
[2021-01-08] MEDS: ALPRAZolam 0.5 MG TAB PO PRN (20:59)
[2021-01-09] MEDS: OCTREOTIDE 100 MCG/ML INJ SQ SCH ×2 (00:12→09:26)
[2021-01-09] MEDS: KETOROLAC 15 MG/ML 1 ML VIAL IVP SCH ×2 (03:47→06:54)
[2021-01-09] MEDS: PANTOPRAZOLE 40 MG TABLET PO SCH (06:48)
[2021-01-09] MEDS: SYMBICORT 80-4.5 MCG INHALER INHALATION SCH (07:34)
[2021-01-09] MEDS: IPRATROPIUM-ALBUTEROL 3 ML NEB IH SCH ×2 (07:34→11:24)
--- NOTE | 2021-01-09 07:49 | XR ---
EXAMINATION TYPE: XR chest 2V DATE OF EXAM: 01/09/2021 COMPARISON: Chest x-ray from prior day PET/CT 12/05/2020, CT 10/19/2020 HISTORY: Status post chest tube removal TECHNIQUE: Frontal and lateral views of the chest are obtained. FINDINGS: There is been interval removal of the right-sided chest tube. Small right apical pneumotho rax is noted and is seen anteriorly on the lateral exam. There is some pleural thickening along the r ight lateral chest margin. There is persistent elevation of left hemidiaphragm and blunting the left costophrenic angle. Soft tissue cephalad to the aorta at its transverse position is likely due to med iastinal fat. IMPRESSION: There is right pneumothorax status post chest tube removal. Elevated left hemidiaphragm.
[2021-01-09 08:23] LABS: Basophils # (A) 0.1 k/uL (0-0.2); Basophils % (A) 1 %; Eosinophils # (A) 0.6 k/uL (0-0.7); Eosinophils % (A) 7 %; HCT 47.1 % (39.0-53.0); HGB 15.8 gm/dL (13.0-17.5); Lymphocytes # (A) 1.2 k/uL (1.0-4.8); Lymphocytes % (A) 13 %; MCH 34.1 pg (25.0-35.0); MCHC 33.6 g/dL (31.0-37.0); MCV 101.5 fL (80.0-100.0); Mean Platelet Volume 7.3; Monocytes # (A) 0.7 k/uL (0-1.0); Monocytes % (A) 8 %; Neutrophils # (A) 6.5 k/uL (1.3-7.7); Neutrophils % (A) 70 %; Platelet Count 371 k/uL (150-450); RBC 4.64 m/uL (4.30-5.90); RDW 12.1 % (11.5-15.5); WBC 9.2 k/uL (3.8-10.6)
[2021-01-09 08:51] LABS: ALT 83 U/L (4-49); AST 56 U/L (17-59); African American GFR (CKD) >90 (>60 ml/min/1.73 sqM); Albumin 3.2 g/dL (3.5-5.0); Alkaline Phosphatase 56 U/L (38-126); Anion Gap 6 mmol/L; Blood Urea Nitrogen 16 mg/dL (9-20); Calcium 9.2 mg/dL (8.4-10.2); Carbon Dioxide 29 mmol/L (22-30); Chloride 100 mmol/L (98-107); Glucose 98 mg/dL (74-99); Magnesium 2.4 mg/dL (1.6-2.3); Non-African American GFR(CKD) >90 (>60 ml/min/1.73 sqM); Potassium 5.1 mmol/L (3.5-5.1); Sodium 135 mmol/L (137-145); Total Bilirubin 0.7 mg/dL (0.2-1.3); Total Protein 5.9 g/dL (6.3-8.2)
[2021-01-09] MEDS: MULTIVITAMINS, THERA 1 EACH TAB PO SCH (09:22)
[2021-01-09] MEDS: ENOXAPARIN 40 MG/0.4 ML SYRINGE SQ SCH (09:23)
--- NOTE | 2021-01-09 10:24 | P.PN ---
Subjective Progress Note Date: 01/09/21 This is a 55-year-old male patient of mine with past medical history of hypertension, mild intermittent asthma, history of COVID-19 infection October 2020, remote history of tobacco use, regular alcohol use, patient was treated for Covid 19 infection back in October 2020 was transferred from [facility] at that time he underwent computed tomography scan of the chest with contrast to rule out any pulmonary embolism it did show a mediastinal mass about 2.5 cm for which she was seen in consultation by Dr. Shay, he was recommended at that time to follow-up with him as an outpatient after the Covid infection is cleared patient came to the office and he was sent to see the technical support consultant where he had intact scan was ordered by him and that showed no uptake initially was decided the patient does have a mediastinal mass suggestive of possible primary thymoma, he was referred to Dr. Stevens for robotic-assisted thymectomy that was done yesterday were asked to see the p atient for medical management. Patient is laying down in bed in no apparent distress at this time he is complaining of some pain at the site where his chest tube is he does appear to be a bit anxious, he has oxygen, he was instructed to use the incentive spirometer, he does not appear to be in acute respiratory distress. Hopefully the Chest tube will come out tomorrow morning and he would be able to be discharged home in the next 1 or 2 days. 01/01: Patient is postop day #1 seen on the cardiac stepdown unit. Pathology report is pending. Repeat chest x-ray is stable findings. A chest tube remains in place which is quite painful -06/15. He is having difficulty with deep breathing secondary to the pain. He is only reaching 500 mL on incentive spirometry. He has been afebrile, heart rate 75, blood pressure 114/76, pulse ox 95% on 3 L nasal cannula. Repeat blood work reveals WBC of 10, hemoglobin 15.4. Sodium 132, potassium 4.1, creatinine 0.82. Blood sugar 125. Total bilirubin 0.8, AST 66, ALT 87, alkaline phosphatase 44. Plan is to increase activity, keep the chest tubes for another day. 01/04: The weekend, patient was followed by [facility] hospitalist. Patient states that he continues to have chest discomfort and tightness in his chest. He is using incentive spirometry and reaching 1800 mL. Patient's also states that he has been ambulating in the hallway. She and and his are inquiring whether he should be transferred to another facility. At this time was discussed the patient will continue current treatment for the next 24 hours and then make determination at that time. He has a chest tube on the right pleural cavity that is attached to low int ermittent suction. No air leak. Pleural fluid is being analyzed for triglycerides to rule out chylous pleural effusion. The chest x-ray reveals persistent subcutaneous emphysema. Small to moderate left pleural effusion and left-sided volume loss we demonstrated. No obvious pneumothorax with right- sided chest tube we demonstrated. No significant change. Ultrasound of the chest ordered and reveals left pleural effusion on 3.1 cm. She has been afebrile, heart rate in the 60s, blood pressure 108/70, pulse ox 94% on room air. CBC is unremarkable. Sodium 130, creatinine 0.86. AST 73, ALT 73, alkaline phosphatase 50. 01/05: Patient has been afebrile, heart rate 71, blood pressure 120/79, pulse ox 96% on room air. Urinalysis was negative for infection. Repeat chest x-ray reveals suspected trace 6 mm left apical pneumothorax. Right-sided chest tube. Continued moderate left effusion with adjacent atelectasis and/or consolidation. Subcutaneous emphysema right greater than left is improving. Triglyceride report from pleural fluid is pending. Pathology report remains pending. 01/06: Right sided chest tube remains in place with plan to remove tomorrow. He states pain right-side of chest was very severe this morning and was having trouble moving around and taking a deep breath but improved at the time of evaluation. Drainage is decreased but still milky consistency but minimal d rainage. He is seen today resting on the couch. He appears to be in no acute respiratory distress. Patient underwent US left side that showed no fluid and pigtail cath was canceled. Patient has been afebrile, HR 69, BP 113/71, PO 96% on RA. 01/07: Patient denies any new complaints. He states he is feeling well. He continues to have the right-sided chest tube in place. Chest x-ray shows minimal effusion on the right, minimal pneumothorax in the right apex. Left lower lobe atelectasis effusion. Patient has been following a low-fat diet. Incentive spirometry as 1700 ML's. Thymic mass pathology is negative for malignancy and sent to [facility]. Anticipate discharge home possib ly today but waiting for cardiothoracic surgery decision. Patient is afebrile, heart rate 67, blood pressure 113/70, pulse ox 97% on room air. WBC 8.1, hemoglobin 16, platelet count 337. Sodium 134, potassium 5, chloride 97, CO2 31, BUN 20 and creatinine 0.9. Total bilirubin 0.8, AST 69, ALT 96, alkaline phosphatase 47. 01/08: Patient has been afebrile, heart rate 65, blood pressure 118/75, pulse ox 96% on room air. environmental monitoring specialist sinus rhythm. Repeat chest x-ray port is pending. He continues to have right sided chest tube. He states he is eating well. Pain is controlled. His last bowel movement was yesterday. Patient is reaching 2000 ML's on incentive spirometry. He is hoping to go home today. He does have a trip planned for on Monday. 01/09: Patient is sitting up in bed in no apparent distress he denies any chest pain or any shortness breath, he continues to show sinus rhythm on the monitor, patient continues to have his chest tube, hopefully this will be taken out there on today, and he will be discharged home, is doing about 2000 mL on the incentive spirometer, he is moving around, he has been under the care of thoracic surgery, portable chest x-ray did show small right-sided pneumothorax after chest tube removal, patient is hemodynamically stable, we will continue with incentive spirometer, subcutaneous emphysema is a lot less than it was before, likely will be able to be discharged home with follow-up as an outpatient. Objective - Vital Signs Vital signs: Vital Signs Temp 98.6 F 01/09/21 03:35 Pulse 80 01/09/21 03:35 Resp 16 01/09/21 03:35 BP 109/70 01/09/21 03:35 Pulse Ox 94 L 01/09/21 03:35 Intake & Output 01/08/21 01/08/21 01/09/21 06:59 18:59 06:59 Intake Total 20 1200 Output Total 30 Balance -10 1200 Weight 91.2 kg 89 kg Intake: IV 20 Invasive Line 5 20 Intake, IV Titration 0 Amount Lactated Ringers 1,000 ml 0 @ 0 mls/hr IV .Sharypic-MED ONE Rx#:[id number] Oral 1200 Output: Chest Tube Drainage 30 Chest Tube Right 30 Other: Voiding Method Toilet Toilet # Voids 2 2 2 - Exam - Exam Review of Systems Constitutional: Denies anorexia, Denies chronic headaches, Denies lethargy, Denies weakness, Denies weight gain Eyes: denies blurred vision, denies bulging eye, denies decreased vision Ears: deny: decreased hearing Ears, nose, mouth and throat: Denies dysphagia, Denies neck lump, Denies sore throat Cardiovascular: Reports mild right sided chest pain, Denies decreased exercise tolerance, Denies dyspnea on exertion, Denies lightheadedness, Denies rapid heart beat, Denies shortness of breath, Denies syncope Respiratory: Denies congestion, Denies cough, Denies cough with sputum, Denies home oxygen, Denies sleep apnea, Denies snoring, Denies wheezing Gastrointestinal: Denies abdominal pain, Denies bloating, Denies BRBPR, Denies early satiety, Denies loss of appetite, Denies melena, Denies nausea, Denies vomiting Genitourinary: Denies dysuria, Denies nocturia Musculoskeletal: Denies atrophy, Denies gait dysfunction, Denies low back pain Musculoskeletal: absent: ankle pain, ankle stiffness, ankle swelling, elbow pain, elbow stiffness, elbow swelling, foot pain, foot stiffness, foot swelling, hand pain, hand stiffness, hand swelling, hip pain, hip stiffness, hip swelling, knee pain, knee stiffness, knee swelling, shoulder pain, shoulder stiffness, shoulder swelling, wrist pain, wrist stiffness, wrist swelling Integumentary: Denies pruritus, Denies rash Neurological: Denies numbness, Denies weakness Psychiatric: Reports anxiety, Denies depression, Denies sadness/tearfulness, Denies sleep disturbances, Denies suicidal ideation Endocrine: Denies fatigue, Denies weight change Physical examination: HEENT: Head is atraumatic, normocephalic, pupils were equal round reactive to light and accommodation, extraocular muscle movement intact. Neck: Supple, no JVD, no carotid bruit. Chest: Decreased breath sounds at bases few rhonchi no expiratory wheezes, minimal chest wall tenderness, no intercostal retractions. Subcutaneous emphysema resolving. Right-sided chest tube with milky white drainage-minimal output. Heart: First heart sound is depressed, second heart sounds normal, there is no gallop or murmur. Abdomen: Soft, minimal nonspecific tenderness no rebound or guarding positive bowel sounds Extremities: No pedal edema, dorsalis pedis +2 bilaterally, there is no calf tenderness. Neurologic examination: Patient is awake alert and oriented and Ox3, cranial nerves 2-12 are grossly intact, muscle power 5 out of 5 in upper and lower extremities bilaterally, deep tendon reflexes were normal. - Labs CBC & Chem 7: 01/09/21 07:10 01/09/21 07:10 Labs: Abnormal Lab Results - Last 24 Hours (Table) 01/08/21 Range/Units 06:46 Sodium 136 L (137-145) mmol/L Carbon Dioxide 35 H (22-30) mmol/L AST 90 H (17-59) U/L ALT 116 H (4-49) U/L Assessment and Plan Assessment: Assessment and Plan Plan: 1. Post operative day #9 status post robotic-assisted thymectomy. Patient was instructed to continue the use of incentive spirometery to reduce the incidence of atelectasis and healthcare associated pneumonia, continue current pain management as outlined by thoracic surgery, continue activity. Chest ultrasound as above. Pathology report negative for malignancy. Continue Sandostatin 200 g subcu every 8 hours. Continue Low fat diet, continue to monitor chest tube output, liquid still milky looking. 2. Primary thymoma discovered on computed tomography scan of the chest followed by a PET scan as an outpatient. Pathology so far is negative. 3. Prior history of COVID-19 back in October 2020. Recovered fully 4. Hypertension and hypertensive cardiovascular disease. Continue metoprolol ER 25 mg orally once every day. 5. Hyperlipidemia. Continue patient on low-cholesterol diet. 6. Mild persistent asthma. Continue patient on DuoNeb 3 mL nebulization every 6 hours, we will continue oxygen support, we'll continue with Symbicort 80/4.5 g 2 puffs inhalation twice every day. 7. Anxiety disorder. Continue patient on Xanax 0.5 mg orally once every day as needed. 8. Pain management. Continue with tramadol 50 mg orally every 6 hours as needed along with Tylenol in between. 9. DVT prophylaxis. Early ambulation, continue with the heparin 5000 units subcutaneously every 8 hours. 10. GI prophylaxis. Continue Protonix 40 mg orally once every day. 11. Small right-sided pneumothorax post chest tube removal with minimal right- sided subcutaneous emphysema. 12. Likely home and follow up with a thoracic surgery an outpatient.
--- NOTE | 2021-01-09 12:09 | P.PN ---
Subjective Progress Note Date: 01/09/21 This is a 55-year-old male, postop day #1, status post ectomy, for a thymoma. The patient mass was discovered initially at [facility], back in early September. Currently, the patient's doing reasonably well, although he is complaining of pain. In addition, he still has a chest tube in. He had a robotically assisted thymectomy. The surgery was done by Dr. Stevens. Currently, the patient's off oxygen. On room air, saturations are 95%. The mass measured 2 x 2.5 cm. In the PET scan of the mass was essentially negative. The final pathology report is not yet back, but likely this is a benign thymoma. Most are. The patient's major complaint includes pain on deep inspiration. We'll encourage deep breathing coughing clearing secretions, and hourly use of incentive spirometer. White count is 10.0, hemoglobin 15.4, hematocrit 46.4, and platelet count 229,000. Sodium 132, potassium 4.1, chlorides 98, CO2 28, anion gap 6, BUN 16, and creatinine 0.82. Progress note dated 01/02/2021. 55-year-old male, postop day #2, status post thymectomy, for a thymoma. The patient had a robotically assisted thoracoscopic thymectomy. Currently, the right-sided chest tube is still in place. Unfortunately, he's developed some subcutaneous emphysema. The patient's also having drainage from the chest tube. The surgery was done by Dr. Stevens. He'll end up seeing one of the other thoracic surgeons today. He has been weaned off of oxygen therapy. White count is 9, hemoglobin 16.6, hematocrit 51.7, and platelet count 262,000. Sodium 135, potassium 4.5, chloride 99, CO2 29, anion gap 7, BUN 27, and creatinine 0.99. Pathology report is currently still pending. There was not a significant leak from the chest tube on the right. The chest x-ray showed worsening subcutaneous emphysema and pneumomediastinum, but moderate sized left rated the right pleural effusion. There is no pneumothorax noted. Progress note dated 01/03/2021. 55-year-old male, postop day #3, status post robotically assisted thymectomy, for thymoma. The patient's right-sided chest tube is still in place, the patient still having evidence of subcutaneous emphysema. He has been seen by thoracic early this morning. White count is 7.7, hemoglobin 16.5, hematocrit 48.1, and platelet count 255,000. Sodium 134, potassium 4.1, chlorides 100, CO2 27, anion gap 7, BUN 24, and creatinine 0.88. Chest x-ray shows persistent subcutaneous emphysema, with a small left-sided pleural effusion. Clinically, he is feeling a bit better. On 01/04/2021, the patient is postop day #4 following his robotic-assisted thy mectomy for thymoma. He still has a chest tube on the right pleural cavity and output from the right-sided chest tube has been 6 20 mL over the past 24 hours. His chest x-ray from today shows a small left-sided pleural effusion along with some atelectatic changes in the left lung base. The gastric bubble is sitting higher and there is evidence of subcutaneous emphysema along the right lateral c hest wall. Ultrasound of the chest was also done and the findings are consistent with a small left-sided pleural effusion measuring 3.1 cm in size. The patient is currently on room air oxygen. The patient has a renal function is stable with a creatinine of 0.8. Sodium is at 1:30. Rest of the blood work including hemoglobin is at 15.4 and a white cell count is at 7.3. No other significant events otherwise for now. The chest she will was attached to low intermittent suction and fluid analysis was sent for triglycerides rule out the possibility of chylothorax. On 01/05/2021, the patient is postop day #5. Patient is doing well. Amount of subcutaneous emphysema is less than today's evaluation. Output from the chest tube is also less than over the past 8 hours the patient has put out only 90 mL of milky white material which probably is colitis. The triglyceride level from the pleural fluid is still pending for now. Meanwhile the patient is on low-fat diet for now. The cath on his chest is also improved. Chest x-ray from today shows a very questionable tiny left apical pneumothorax. The right lung is well expanded. The patient has a right-sided chest tube in place. No evidence of any air leak. No chest pain. No fever. No chills. No night sweats. No other significant events overnight. His blood work from yesterday shows no significant abnormalities. No fractures which chest pain. The thymus pathology is not back yet. On 01/06/2021, the patient is postop day #6. In terms of his operative from the right-sided chest tube, the output has been decreasing and the patient is producing only 200 mL of chylous material from the right lung. Meanwhile, there is still a pleural effusion on the left which is small and patient will have an interventional radiology guided drainage of the left-sided pleural effusion. No significant substance emphysema. The patient is on room air oxygen. No fever or chills. No evidence of any air leak from the chest tube. No other significant events otherwise. His diet has been changed and the patient is fatty diet. No chest pain. No altered mentation. No fever or chills. avoiding all sorts of tests. 01/07/2021 the patient is postop day #7. Right-sided chest tube still in place. Output has been in the order of 100 mL over the past 24 hours. Repeat chest x- ray shows minimal effusion on the right, minimal pneumothorax in the right apex, there was a left lower lobe atelectasis/effusion which was further investigated by an ultrasound of the chest yesterday that showed no sizable effusion on the left that warrants thoracentesis. As such, no intervention was done in the left lung. The patient is using incentive spirometer. He is utilizing a low-fat diet. No fever. No chills. Substance emphysema has improved considerably. We'll monitoring this patient On 01/08/2021 the patient is postop day #8. Doing well. Output from the right- sided chest tube is minimal in the order of 50 mL over the past 24 hours. No evidence of any pneumothorax. No evidence of any air leak. It is very much likely that the right-sided chest tube will be removed today. Meanwhile, he has some atelectatic changes and small pleural effusion on the left on today's chest x-ray. No evidence of any subcutaneous emphysema. No evidence of any pneumothorax. He is on room air oxygen. He has no other complaints otherwise for now. Pathology on his thymus was sent to [facility]. This is likely of a benign nature. He is on DuoNeb nebulized treatments when necessary, he is on Lovenox for DVT prophylaxis 40 mg subcu every 24 hours and he is on [place] for pain control. today's evaluation of 01/09/2021, the patient is a very tiny apical pneumothorax on the right. Right-sided chest tube is minimal. He also has some fluid and atelectasis in the left lung.the patient did he is doing very well. Is postop day #9. No respiratory difficulties. No chest pain. He is using incentive spirometer. No significant leaks from the chest tube insertion sites. No chest pain. Surgical wound sites have healed nicely. No significant subcutaneous emphysema on today's examination. No hemoptysis. No pleurisy. No chest pain. Objective - Vital Signs Vital signs: Vital Signs Temp 97.5 F L 01/09/21 08:40 Pulse 78 01/09/21 11:36 Resp 18 01/09/21 08:40 BP 109/62 01/09/21 08:40 Pulse Ox 93 L 01/09/21 08:40 Intake & Output 01/08/21 01/09/21 01/09/21 18:59 06:59 18:59 Intake Total 1200 240 Output Total 350 Balance 1200 -110 Weight 89 kg Intake: Intake, IV Titration 0 Amount Lactated Ringers 1,000 ml 0 @ 0 mls/hr IV .Voxli ONE Rx#:[id number] Oral 1200 240 Output: Urine 350 Other: Voiding Method Toilet Toilet # Voids 2 2 - Exam No acute distress, oriented 3. Currently on room air. HEENT examination is grossly unremarkable. Mucous membranes are moist. No oral lesions. Neck supple. Full range of motion. No adenopathy thyromegaly or neck vein distention. Cardiovascular examination reveals regular rhythm rate. S1-S2 normal. No S3 or S4. No discernible murmur noted. Heart sounds are distant. Lungs reveal diminished bilateral breath sounds. Right-sided chest tubehas been removed . The patient has no subcutaneous emphysema. Diminished breath on the lung bases bilaterally. His pulling up to 2000 on his incentive spirometer. Abdomen soft bowel sounds are heard. No masses or tenderness. Extremities are intact. No cyanosis clubbing or edema. Skin reveals subcutaneous emphysema over the chest and neck areas. Neurologic examination is brief but nonfocal. - Labs CBC & Chem 7: 01/09/21 07:10 01/09/21 07:10 Labs: Abnormal Lab Results - Last 24 Hours (Table) 01/09/21 01/09/21 Range/Units 07:10 07:10 MCV 101.5 H (80.0-100.0) fL Sodium 135 L (137-145) mmol/L Magnesium 2.4 H (1.6-2.3) mg/dL ALT 83 H (4-49) U/L Total Protein 5.9 L (6.3-8.2) g/dL Albumin 3.2 L (3.5-5.0) g/dL Assessment and Plan Plan: 1 Postop day #9, status post robotically assisted thoracoscopic thymectomy, for primary thymoma. 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 The chest tube was removed today with a tiny residual right apical pneumothorax. Left lung shows some atelectasis and small effusion. 2 Postoperative subcutaneous emphysema and pneumomediastinum. 3 History of asthma, currently maintained on Wixela and Proventil, stable. 4 History of insomnia. 5 History of cholecystectomy. 6 History of hayfever. Plan: low fat diet Chest tube removed and a tiny right apical pneumothorax can be monitored on outpatient basis Continue using incentive spirometer Continue Symbicort or Wixela outpatient Patient is on room air oxygen We'll continue to follow. Lead a chest x-ray on outpatient basis within the next week. Clear for discharge from a pulmonary standpoint as long as he is also cleared with CT surgery.
[2021-01-09 12:52] VITALS: BP 99/70; PULSE 79; RESP 16; TEMP 98.1
--- NOTE | 2021-01-09 14:13 | P.DS ---
Providers Date of admission: 12/31/20 05:59 Expected date of discharge: 01/09/21 Attending physician: Ehsan Stevens Consults: 12/31/20 15:03 Consult Physician Routine Consulting Provider: Aniket Shay Consult Reason/Comments: pulm mgmt; known to you Do you want consulting provider notified?: Yes Consult Physician Routine Consulting Provider: Yanique Artis Consult Reason/Comments: med mgmt Do you want consulting provider notified?: Yes Primary care physician: aYnique Artis Hospital Course: FINAL DIAGNOSIS: 1. Thymic mass, status post robotic-assisted right thoracoscopic total thymectomy 2. Postoperative subcutaneous emphysema and pneumomediastinum 3. History of recent Covid infection in October 2020 4. Asthma 5. Previous tobacco dependence 6. Hypertension 7. Hyperlipidemia, cholesterol 237, LDL 142 8. Family history of cancer 9. Probable postoperative chylothorax, unexpected 10. Small right-sided apical pneumothorax post chest tube removal PRINCIPAL PROCEDURE: 1. Robotic-assisted right thoracoscopic total thymectomy. HISTORY OF PRESENT ILLNESS: This is a 55-year-old gentleman who is followed by Dr. Artis on an outpatient basis for his primary care service. The patient also follows with Dr. Shay on an outpatient basis for asthma. The patient has a past medical history significant for asthma, remote history of tobacco dependence, hypertension, hyperlipidemia, family history of cancer and a recent COVID 19 infection of October 2020. In October 2020 while deer hunting with some friends, the patient noticed he was getting very short of breath. Subsequently he presented to the hospital at that time and was subsequently diagnosed with COVID 19 infection. During his hospitalization he did require some supplemental oxygen but did not require intubation. Subsequently during that admission he underwent a computed tomography scan of his chest at [place] which incidentally showed a finding of an abnormal mediastinal mass. After recovering at home for 2 months the patient had a repeat computed tomography scan of his chest completed at [facility] which demonstrated a 2 x 2.5 cm mediastinal mass within the anterior mediastinum. For further evaluation he underwent a PET scan on 12/06/2020 which showed an anterior mediastinal mass without significant uptake. There was no evidence of adenopathy and no evidence of metastasis. Subsequently the patient was referred to Dr. Ehsan Stevens from cardiovascular surgery for further evaluation and treatment recommendations. The patient met with Dr. Stevens and treatment options were discussed and as the mass is most consistent with thymoma recommendations to proceed with a robotic-assisted right thoracoscopic total thymectomy was discussed. Knowing and understanding the risks the patient wished to proceed with the surgical option. HOSPITAL COURSE: On 12/31/2020 the patient was admitted to the hospital and af ter Obtaining consent was taken to the operating room or Dr. Ehsan Stevens performed a robotic-assisted right thoracoscopic total thymectomy. Upon completion of the surgery the patient was taken to the recovery room where he was recovered and further monitored. Subsequently he was transferred to the third floor cardiac stepdown unit for further monitoring and rehabilitation. Postoperatively the patient did develop a right-sided chylothorax which was treated accordingly. The pathology results were discussed with the patient which showed a thymoma, WHO type B3. The patient's oxygen was titrated down, continued to work with his incentive spirometry, was placed on a no fat diet, his pain was well controlled without narcotics and he was ready to be discharged home on postoperative day #8. He has received written and verbal instructions regarding his medications, activity restrictions, signs and symptoms requiring physician notification and his follow-up appointment. COMPLICATIONS: His postoperative period was complicated by a chylothorax, which was treated accordingly. CONSULTATIONS: 1. Dr. Shay for pulmonary management. 2. Dr. Artis for medical management. Plan - Discharge Summary Discharge Rx Participant: No New Discharge Prescriptions: New Acetaminophen Tab [Tylenol] 650 mg PO Q4HR PRN tab PRN Reason: Fever And/ Or Pain Continue Multivitamins, Thera [Multivitamin (formulary)] 1 tab PO DAILY Albuterol Sulfate [Ventolin HFA] 2 puff INHALATION DIRECTED PRN PRN Reason: asthma sx ALPRAZolam [Xanax] 0.5 mg PO DAILY PRN PRN Reason: Anxiety lisinopriL [Zestril] 5 mg PO PC-SUPPER Metoprolol Succinate (ER) [Toprol XL] 25 mg PO PC-SUPPER Fluticasone/Salmeterol [Advair 250-50 Diskus] 1 inhalation PO BID guaiFENesin [Mucinex] 600 mg PO Q12H PRN PRN Reason: congestion, cough Discharge Medication List ALPRAZolam [Xanax] 0.5 mg PO DAILY PRN 12/25/20 [History] Albuterol Sulfate [Ventolin HFA] 2 puff INHALATION DIRECTED PRN 12/25/20 [History] Fluticasone/Salmeterol [Advair 250-50 Diskus] 1 inhalation PO BID 12/25/20 [History] Metoprolol Succinate (ER) [Toprol XL] 25 mg PO PC-SUPPER 12/25/20 [History] Multivitamins, Thera [Multivitamin (formulary)] 1 tab PO DAILY 12/25/20 [History] guaiFENesin [Mucinex] 600 mg PO Q12H PRN 12/25/20 [History] lisinopriL [Zestril] 5 mg PO PC-SUPPER 12/25/20 [History] Acetaminophen Tab [Tylenol] 650 mg PO Q4HR PRN tab 01/09/21 [Rx] Follow up Appointment(s)/Referral(s): Ehsan Stevens MD [STAFF PHYSICIAN] - 01/28/21 (Frances from the office will call with a time. ) Aniket Shay DO [Doctor of Osteopathic Medicine] - 1 Week Ambulatory/Diagnostic Orders: XR chest 2V [RAD.AMB] Location: None Selected Activity/Diet/Wound Care/Special Instructions: DISCHARGE INSTRUCTIONS: 1. No driving for 2 weeks, or until physician gives their ok. 2. The patient should sleep in their own bed, no medical bed needed. 3. Continue with incentive spirometry every hour while awake, until otherwise directed by the physician. 4. Continue pain control per as needed orders. May alternate acetaminophen (Tylenol) with ibuprofen (Motrin). 5. Routine incision care. No powders, lotions, ointments on incisions. 6. May remove dressings on Monday, if saturated prior to that just reinforce. May shower daily starting on Monday, no tub baths, hot tubs, pools. 7. Please call surgeon/[employer] for temp greater than 101 F or purulent drainage from incisions. 8. Maintain no fat diet for one month. Discharge Disposition: HOME SELF-CARE
== END 2021-01-09 15:02 | disposition home or self-care (01) | DRG 827 ==
LOC: 2ORMAIN 05:59 → 3SCARD 10:54
PROVIDERS: ADMIT Thoracic Surgery (Cardiothoracic Vascular Surgery); ATTEND Thoracic Surgery (Cardiothoracic Vascular Surgery)
PROC: 07TM4ZZ Resection of Thymus, Percutaneous Endoscopic Approach (ICD-10-PCS; principal; 2020-12-31 07:30)
PROC: 8E0W4CZ Robotic Assisted Procedure of Trunk Region, Percutaneous Endoscopic Approach (ICD-10-PCS; principal; 2020-12-31 07:30)
DX: C37 Malignant neoplasm of thymus (principal); J90 Pleural effusion, not elsewhere classified; J93.9 Pneumothorax, unspecified; J98.11 Atelectasis; E78.5 Hyperlipidemia, unspecified; F41.9 Anxiety disorder, unspecified; I10 Essential (primary) hypertension; I89.8 Other specified noninfective disorders of lymphatic vessels and lymph nodes; J43.8 Other emphysema; Z86.16 Personal history of COVID-19; J45.30 Mild persistent asthma, uncomplicated; Z79.51 Long term (current) use of inhaled steroids; Z79.899 Other long term (current) drug therapy; Z80.42 Family history of malignant neoplasm of prostate; Z82.49 Family history of ischemic heart disease and other diseases of the circulatory system; Z82.5 Family history of asthma and other chronic lower respiratory diseases; Z87.891 Personal history of nicotine dependence; Z90.49 Acquired absence of other specified parts of digestive tract; N42.9 Disorder of prostate, unspecified
CPT/HCPCS: 36415; 64461; 71045; 71046; 76604; 80048; 80051; 80053; 81003; 82150; 82565; 82947; 83690; 83735; 84520; 85025; 85027; 85610; 85730; 86788; 86850; 86900; 86901; 88307; 88341; 88342; 94640; 94760

== ENCOUNTER → 2021-01-12 | Outpatient (CLI) | payer BC ==
--- NOTE | 2021-01-12 16:38 | XR ---
EXAMINATION TYPE: XR chest 2V DATE OF EXAM: 01/12/2021 COMPARISON: Chest x-ray 01/09/2021 HISTORY: Post thymectomy, abnormal chest x-ray TECHNIQUE: Frontal and lateral views of the chest are obtained. FINDINGS: Findings are similar to prior exam. There is elevation of left hemidiaphragm, blunting of the chest phrenic angles is present. There is a right-sided pneumothorax at the apex similar to prior exam. Heart is obscured. IMPRESSION: Findings are similar to prior exam. Persistent right-sided pneumothorax.
== END ==
LOC: RADXRMAIN 14:48
PROVIDERS: ATTEND Nurse Practitioner Family
DX: Z48.89 Encounter for other specified surgical aftercare (principal); J95.811 Postprocedural pneumothorax
CPT/HCPCS: 71046

== ENCOUNTER → 2021-03-10 | Outpatient (CLI) | payer BC ==
--- NOTE | 2021-03-10 15:53 | XR ---
EXAMINATION TYPE: XR chest 2V DATE OF EXAM: 03/10/2021 COMPARISON: Chest x-ray January 12, 2021 HISTORY: History of thymus removal, tobacco use, and asthma TECHNIQUE: Frontal and lateral views of the chest are obtained. FINDINGS: There is persistent elevated left hemidiaphragm with small left pleural effusion. Stable s mall to tiny right pleural effusion. Upper lungs remain clear. The cardiac silhouette size is stable and within normal limits. Interval resolution of right apical pneumothorax. The osseous structures a re intact. IMPRESSION: Elevated left hemidiaphragm with small to tiny left greater than right pleural effusions . No pneumothorax noted on current study.
== END | disposition home or self-care (01) ==
LOC: RADXRMAIN 15:09
PROVIDERS: ATTEND Thoracic Surgery (Cardiothoracic Vascular Surgery)
DX: J45.909 Unspecified asthma, uncomplicated (principal); J90 Pleural effusion, not elsewhere classified; J98.6 Disorders of diaphragm
CPT/HCPCS: 71046

== ENCOUNTER → 2021-04-01 | Outpatient (CLI) | payer BC ==
--- NOTE | 2021-04-01 21:37 | CT ---
EXAMINATION TYPE: CT angio chest DATE OF EXAM: 04/01/2021 4:27 PM COMPARISON: Chest x-ray 2 days ago and older x-rays all sites CTA chest October 19, 2020. HISTORY: Shortness of breath post thymectomy and recent covid. CT DLP: 545 mGycm Automated exposure control for dose reduction was used. CONTRAST: CTA scan of the thorax is performed with IV Contrast, patient injected with 69ml mL of Isovue 370, pu lmonary embolism protocol. MIP images are created and reviewed. FINDINGS: LUNGS: Elevated left hemidiaphragm redemonstrated. Chronic left basilar consolidation and/or scarring is redemonstrated. Right lung remains clear. New Suspicious posterior inferior left upper lung 1.9 x 1.1 cm nodule or nodular consolidation coronal im age 89 series 9 abutting the fissure. Background mild emphysematous change. Tracheobronchial tree is patent. MEDIASTINUM: There is satisfactory enhancement of the pulmonary artery and its branches, there is no CT evidence for pulmonary embolism. Ectatic ascending aorta up to 3.8 cm in diameter. No aortic diss ection. There are no new greater than 1 cm hilar or mediastinal lymph nodes. Tiny pericardial effusio n is now seen. No cardiomegaly. OTHER: Diffuse fatty infiltration of liver. Cholecystectomy clips. IMPRESSION: No CTA evidence for acute pulmonary embolism. Elevated left hemidiaphragm with chronic le ft basilar consolidation and/or atelectasis. New suspicious 1.9 x 1.1 cm left upper lung nodule or no dular consolidation. Consider repeat PET/CT to further evaluate.
== END | disposition home or self-care (01) ==
LOC: RADCTMAIN 15:56
PROVIDERS: ATTEND Internal Medicine Critical Care Medicine
DX: J98.6 Disorders of diaphragm (principal); Z86.16 Personal history of COVID-19
CPT/HCPCS: 71275; Q9967

== ENCOUNTER → 2021-04-09 | Outpatient (CLI) | payer BC ==
--- NOTE | 2021-04-10 12:45 | PE ---
EXAMINATION TYPE: PET CT fusion skull to thigh DATE OF EXAM: 04/09/2021 COMPARISON: Prior CT April 01, 2021 and older studies. Prior PET/CT December 05, 2020 HISTORY: Solitary pulmonary nodule, abnormal CT TECHNIQUE: Following the intravenous administration of 12.19 mCi of F-18 FDG, whole body images are performed from the skull base to the midthigh. Images are reviewed on the computer in the coronal, a xial, and sagittal planes. Reconstructed rotating images are created on independent workstation and reviewed on the computer. A localization and attenuation correction CT is performed in conjunction with the PET scan. Blood glucose level equals 83. SCAN: Initial Scan FINDINGS: SKULL BASE AND NECK: No areas of abnormal hypermetabolic uptake. CHEST, MEDIASTINUM, AND HILAR REGION: Persistent focus of nodule or nodular consolidation posterior l eft upper lobe abutting fissure axial image 82 measures 1.3 x 1.0 cm slightly smaller from recent CT. This area is ametabolic. No areas of abnormal hypermetabolic uptake. Elevated left hemidiaphragm. Ch ronic left basilar consolidation and/or atelectasis. ABDOMEN AND PELVIS: No abnormal hypermetabolic uptake. No adrenal masses. Nonspecific bowel uptake. OSSEOUS STRUCTURES: No abnormal hypermetabolic uptake. 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 Liver is diffusely low dense consistent with fatty i nfiltration. Cholecystectomy clips. Normal-appearing appendix. Occasional distal colonic diverticula. IMPRE ON: Small 1.3 x 1.0 cm left lung nodule or nodular consolidation slightly smaller in size an d is ametabolic suggesting resolving infectious or inflammatory process. Consider follow-up CT in 6 m onths time to reassess and document stability and/or resolution.
== END | disposition home or self-care (01) ==
LOC: RADPETMAIN 14:50
PROVIDERS: ATTEND Internal Medicine Critical Care Medicine
DX: R91.1 Solitary pulmonary nodule (principal)
CPT/HCPCS: 78815; A9552

== ENCOUNTER → 2021-04-14 | Outpatient (CLI) | payer BC ==
--- NOTE | 2021-04-14 12:55 | FL ---
EXAMINATION TYPE: FL sniff test without CXR DATE OF EXAM: 04/14/2021 COMPARISON: PET CT April 09, 2021 and older studies HISTORY: History of thymectomy surgery January 28, 2021 with abnormal lung function and difficulty go thing. Disorder of diaphragm. TECHNIQUE: Fluoroscopy-assisted sniff test. A total of 1 minute fluoroscopic time utilized during pro cedure. 22 spot images taken to PACS. FINDINGS: In review of patient's studies there is change in position of left hemidiaphragm between PE T CT December 05, 2020 and chest x-ray December 31, 2020. Dynamic evaluation show satisfactory motion during inspiration and expiration of the right hemidiaphr agm. There is absent motion of the left hemidiaphragm. Findings better appreciated during normal go thing versus deep inspiration and expiration technique. Images saved to PACS. Associated left basilar linear scarring and/or atelectasis redemonstrated. IMPRESSION: As Above. 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
== END | disposition home or self-care (01) ==
LOC: RADUSWWP 09:33
PROVIDERS: ATTEND Internal Medicine Critical Care Medicine
DX: J98.6 Disorders of diaphragm (principal)
CPT/HCPCS: 76000

== ENCOUNTER → 2021-05-25 | Outpatient (CLI) | payer BC ==
--- NOTE | 2021-05-25 11:39 | XR ---
EXAMINATION TYPE: XR chest 2V DATE OF EXAM: 05/25/2021 COMPARISON: 03/10/2021 INDICATION: Paralysis of diaphragm TECHNIQUE: Frontal and lateral views of the chest are obtained. FINDINGS: The heart size is normal. The pulmonary vasculature is normal. Left lower lobe infiltrate is present. Correlate for atelectasis or pneumonia. Small left pleural eff usion is present. Some mild infiltrate may be of the right costophrenic angle. A posterior right pleu ral effusion may be present. Previous asymmetric elevation of the diaphragm is not evident on the cu rrent exam. IMPRESSION: 1. Small bilateral pleural effusions. 2. Left lower lobe infiltrate. Correlate for atelectasis.
== END | disposition home or self-care (01) ==
LOC: RADXRMAIN 11:19
PROVIDERS: ATTEND Thoracic Surgery (Cardiothoracic Vascular Surgery)
DX: J90 Pleural effusion, not elsewhere classified (principal)
CPT/HCPCS: 71046

== ENCOUNTER → 2022-05-19 | Outpatient (CLI) | payer BC ==
--- NOTE | 2022-05-20 08:11 | CT ---
EXAMINATION TYPE: CT chest w con CT DLP: 438.8 mGycm, Automated exposure control for dose reduction was used. DATE OF EXAM: 05/19/2022 7:22 PM COMPARISON: CT chest 04/01/2021 PET 04/10/2021 CLINICAL INDICATION:Male, 56 years old with history of R91.1 nodule left lung, h/o lung nodule and th ymectomy TECHNIQUE: Multiple axial images were obtained through the chest following the administration of 100 cc of Isovue 300. FINDINGS: LUNGS/ PLEURA: Resolution of left posterior upper lobe nodular-like opacity seen on 04/01/2021. No foc al consolidation, pneumothorax or pleural effusion. Elevated left diaphragm. There is nodule left shanique g atelectasis within the left lower lung. History of lung nodules likely AIRWAY: Patent and unremarkable. HEART: Size within normal limits. MEDIASTINUM: No gross evidence of adenopathy. VASCULATURE: No aortic aneurysm. MUSCULOSKELETAL: No acute osseous abnormalities SOFT TISSUES/LYMPH NODES: Mild gynecomastia changes are seen bilaterally. LOWER NECK: No significant findings. UPPER ABDOMEN: The gallbladder surgically absent. IMPRESSION: Resolution of prior opacity within the posterior aspect of the left upper lobe. No new suspicious pul monary nodules.
== END | disposition home or self-care (01) ==
LOC: RADCTMAIN 18:57
PROVIDERS: ATTEND Internal Medicine
DX: R91.1 Solitary pulmonary nodule (principal)
CPT/HCPCS: 71260; Q9967

== ENCOUNTER → 2022-10-13 | Outpatient (CLI) | payer BC ==
[2022-10-13 14:01] LABS: Appearance,Urine Clear (Clear); Bilirubin,Urine Negative (Negative); Blood,Urine Negative (Negative); Color,Urine Yellow; Glucose,Urine (UA) Negative (Negative); Ketones,Urine Trace (Negative); Leukocyte Esterase,Urine Negative (Negative); Nitrite,Urine Negative (Negative); PH, Urine 5.5 (5.0-8.0); Protein,Urine Trace (Negative); Specific Gravity,Urine 1.029 (1.001-1.035); Urobilinogen,Urine <2.0 mg/dL (<2.0)
[2022-10-13 18:04] LABS: Basophils % (A) 1.4 %; Eosinophils # (A) 0.32 X 10*3/uL (0.04-0.35); Eosinophils % (A) 4.3 %; HCT 52.2 % (39.6-50.0); HGB 17.5 g/dL (13.0-17.0); Immature Grans, Automated 0.4 %; Lymphocytes # (A) 1.18 X 10*3/uL (0.90-5.00); MCH 31.8 pg (27.0-32.0); MCHC 33.5 g/dL (32.0-37.0); MCV 94.9 fL (80.0-97.0); Mean Platelet Volume 10.5 fL (9.5-12.2); Monocytes # (A) 0.64 X 10*3/uL (0.20-1.00); Monocytes % (A) 8.7 %; NRBC Per 100 WBC 0 /100 WBCS (0.0-0.0); Neutrophils # (A) 5.09 X 10*3/uL (1.80-7.70); Neutrophils % (A) 69.2 %; Platelet Count 267 X 10*3/uL (140-440); RDW 14.5 % (11.5-14.5); WBC 7.36 X 10*3/uL (4.50-10.00)
[2022-10-13 18:41] LABS: ALT 26 U/L (10-49); AST 24 U/L (14-35); African American GFR (CKD) 112.8 (60.0-200.0); Albumin 4.4 g/dL (3.8-4.9); Albumin/Globulin Ratio 1.73 (1.60-3.17); Alkaline Phosphatase 71 U/L (41-126); BUN/Creat Ratio 16.17 Ratio (12.00-20.00); Calcium 9.9 mg/dL (8.7-10.3); Carbon Dioxide 27.1 mmol/L (20.0-27.5); Chloride 103 mmol/L (96-109); Chol/HDL Ratio 3.09 Ratio; Globulin 2.6 g/dL (1.6-3.3); Glucose 95 mg/dL (70-110); LDL Cholesterol,Calculated 128.3 mg/dL (0.0-131.0); Magnesium 2.3 mg/dL (1.5-2.4); Non-African American GFR(CKD) 97.3 (60.0-200.0); Potassium 5.6 mmol/L (3.5-5.5); Sodium 140 mmol/L (135-145); VLDL Calculation 17.06 mg/dL (5.00-40.00)
== END | disposition home or self-care (01) ==
LOC: LABWHC1 10:40
PROVIDERS: ATTEND Internal Medicine
DX: I10 Essential (primary) hypertension (principal); N40.0 Benign prostatic hyperplasia without lower urinary tract symptoms; F41.9 Anxiety disorder, unspecified; J45.30 Mild persistent asthma, uncomplicated
CPT/HCPCS: 36415; 80053; 80061; 81003; 83036; 83735; 84153; 84443; 85025